=== PATIENT | male | born 1950 | race Caucasian/White ===

== ENCOUNTER 2016-05-21 21:32 | Inpatient (IN) | payer BC, OTHER ==
[~2016-05-21] VITALS: Ht 190.5 cm; Wt 70.0 kg
[~2016-05-21 21:32] MED LIST: ABL10 PO; ARC10 PO; ASPI81TA28 PO; BACL10TA PO; BUSP-8 PO; CHOL100010 PO; DIPH-416 PO; DORZ2SOL20 OPL; FEXO1TAB45 PO; IBUP-1449 PO; IMD/2 PO; MAGN1TAB19 PO; MELA1TAB5 PO; MULT-506 PO; NMN10 PO; QUET1TAB30 PO; SERT-234 PO; TRAV0.00 OPL; [UNRECOGNIZED DRUG - CODE] EXT
[2016-05-21] MEDS ORDERED: SODIUM CHLORIDE 0.9% 250ML 250 ML IV STA (21:46)
[2016-05-21] MEDS ORDERED: SODIUM CHLORIDE 0.9% 1000ML 1,000 ML IV STA (21:46)
[2016-05-21] MEDS ORDERED: ALBUT/IPRATROP 3MG/0.5MG NEB 3 ML VIAL INH STA (21:46)
--- NOTE | 2016-05-21 22:19 | DIAGNOSTIC IMAGING REPORT ---
CHEST ONE VIEW PORTABLE CLINICAL HISTORY: Sepsis SHORTNESS OF BREATH, COUGH. COMPARISON STUDY: 04/13/2016 FINDINGS: The cardiac and mediastinal contours are normal. There is no evidence of focal pulmonary consolidation. There is no evidence of failure. No pleural effusions are visualized.[ There is minor right basilar atelectasis. There is a thoracolumbar scoliosis IMPRESSION: No active disease in the chest. Electronically signed by: Asif Davis M.D. 05/21/2016 10:18 PM Dictated Date/Time: 05/21/2016 10:16 PM
[2016-05-21 22:36] LABS: BASO % 0.3 %; BASO ABS # 0.03 K/uL (0-0.2); COMPLETE YES; EOS % 3.2 %; HEMATOCRIT 36.1 % (42-52); IG% 0.1 %; LYMPH % 7.1 %; LYMPH ABS # 0.65 K/uL (1.2-3.4); MEAN CELL VOLUME 78.5 fL (80-100); MEAN CORPUSCULAR HEMOGLOBIN 28.9 pg (25-34); MEAN CORPUSCULAR HGB CONC 36.8 g/dl (32-36); MEAN PLATELET VOLUME 10.4 fL (7.4-10.4); MONO % 5.4 %; NEUT % 83.9 %; PLATELET COUNT 215 K/uL (130-400); WHITE BLOOD COUNT 9.15 K/uL (4.8-10.8)
[2016-05-21 22:47] LABS: INR 1.4 (0.9-1.1); PARTIAL THROMBOPLASTIN RATIO 1.3; PROTHROMBIN TIME (PATIENT) 15.3 SECONDS (9.0-12.0)
--- NOTE | 2016-05-21 23:05 | DIAGNOSTIC IMAGING REPORT ---
ULTRASOUND BILATERAL LOWER EXTREMITY VENOUS CLINICAL HISTORY: Leg swelling. COMPARISON STUDY: Left lower extremity venous ultrasound dated 03/03/2014. TECHNIQUE: Real-time, grayscale, and color Doppler sonography of the deep veins of the right and left lower extremity was performed from the inguinal crease to the calf. Compression and augmentation were utilized. FINDINGS: There is no sonographic evidence of deep venous thrombosis identified in the right or left lower extremity. The common femoral, superficial femoral, and popliteal veins are patent and normally compressible bilaterally. The greater saphenous vein and the profunda femoris vein at the junction with the common femoral vein are clear in both legs. The visualized calf veins are patent bilaterally. IMPRESSION: There is no sonographic evidence of deep venous thrombosis identified in the right or left lower extremity. Electronically signed by: Pan Steen M.D. 05/21/2016 11:03 PM Dictated Date/Time: 05/21/2016 11:02 PM
[2016-05-21] MEDS ORDERED: BOOST VANILLA PO STA ×2 (23:23)
[2016-05-21 23:57] LABS: URINE APPEARANCE CLOUDY (CLEAR); URINE BILIRUBIN NEG (NEG); URINE COLOR YELLOW; URINE EPITHELIAL CELL AUTO >30 /lpf (0-5); URINE NITRITE NEG (NEG); URINE PH 5.5 (4.5-7.5); URINE SPECIFIC GRAVITY 1.018 (1.000-1.030); UROBILINOGEN NEG (NEG); ZZURINE CULT IF INDIC CATH YES
[2016-05-22 00:01] LABS: MANUAL MICROSCOPIC REQUIRED? NO; REVIEW REQ? YES
[2016-05-22 00:06] LABS: ALB/GLOB RATIO 0.7 (0.9-2); CALCIUM 8.4 mg/dl (8.5-10.1); CKMB/CK RATIO 4.6 (0-3.0); MAGNESIUM 2.6 mg/dl (1.8-2.4); POTASSIUM 3.4 mmol/L (3.5-5.1)
[2016-05-22] MEDS ORDERED: CHOL1000 PO (01:07)
[2016-05-22] MEDS ORDERED: DONE10TA12 PO (01:08)
[2016-05-22] MEDS ORDERED: NMN10 PO (01:13)
[2016-05-22] MEDS ORDERED: TRAV0.00 OPL (01:21)
[2016-05-22 01:50] LABS: INFLUENZA A PCR Neg for Influ A (NEG); INFLUENZA B PCR Neg for Influ B (NEG)
[2016-05-22] MEDS ORDERED: ONDANSETRON INJ 2 MG/ML 2 ML VIAL IV PRN (02:15)
[2016-05-22] MEDS ORDERED: POLYETHYLENE (MIRALAX) 17 GM PACK PO PRN (02:15)
[2016-05-22] MEDS ORDERED: ALUMINUM/MAGNESIUM/SIMETH (MAALOX MAX) 30 ML UDC PO PRN (02:15)
[2016-05-22] MEDS ORDERED: MAGNESIUM HYDROXIDE SUSP 30 ML UDC PO PRN (02:15)
[2016-05-22 03:05] VITALS: BP 143/73; PULSE 63; TEMP 36.6; O2SAT 99; Ht 190.5 cm; Wt 70.0 kg
--- NOTE | 2016-05-22 03:16 | History and Physical ---
History & Physical Date & Time of Service: May 22, 2016 at 02:46 Chief Complaint: Sob, Cough Primary Care Physician: Justice Neil M.D. History of Present Illness Source: patient 66 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 Pt presents from a care facility due to a coughing fit where he was noted to bring up large amounts of phlegm. There were no reported fevers, CP, N/V or dysuria. His fire support specialist states that he has not tolerated sufficient PO intake over the last 4 days. The pt himself could not contribute to the HPI. 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 Initial labs are consistent with severe dehydration and ARF. The pt was admitted for similar complaints 01/15 and developed aspiration pneumonia following admission. 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 (5) Osteoarthritis Status: Chronic Surgical Problems: (1) S/P hip replacement Status: Resolved Family History Heart disease Social History Smoking Status: Former Smoker Drug Use: none Marital Status: single Housing status: lives alone Occupational Status: retired Immunizations History of Influenza Vaccine: Yes Influenza Vaccine Date: Feb 01, 2012 History of Tetanus Vaccine?: Yes Tetanus Immunization Date: Mar 03, 2012 History of Pneumococcal: Yes Pneumococcal Date: Mar 03, 2012 History of Hepatitis B Vaccine: No Multi-Drug Resistant Organisms History of MDRO: No Allergies Coded Allergies: Penicillins (Verified Allergy, Unknown, unknown, Per Erik Chang: pt rec'd ancef in OR w/o rxn, 01/12/16) pt/spouse Home Medications Scheduled Aripiprazole (Abilify), 2.5 TAB PO DAILY Aspirin (Aspirin Ec), 81 MG PO DAILY Baclofen (Lioresal), 10 MG PO HS Buspirone Hcl (Buspirone Hcl), 15 MG PO TID Cholecalciferol (Vitamin D3), 1,000 UNITS PO DAILY Diphenoxylate/Atropine (Lomotil), 1 TAB PO QID Donepezil Hydrochloride (Aricept), 10 MG PO HS Dorzolamide Hcl-Timolol Maleat (Cosopt Oph), 1 DROPS OPL BID Fexofenadine Hcl (Scarlett), 180 MG PO DAILY Loperamide Hcl (Imodium), 2 MG PO QID Magnesium Oxide (Mg Supplement (Magnesium Oxide), 400 MG PO DAILY Melatonin (Kp Melatonin), 2 TAB PO HS Memantine (Namenda), 10 MG PO BID Miconazole Nitrate (Miconazole Nitrate), 1 APPLN EXT DAILY Multivitamin (Multivitamin), 1 TAB PO QAM Quetiapine Fumarate (Seroquel), 25 MG PO HS Sertraline (Zoloft), 300 MG PO HS Travoprost (Travatan Z), 1 DROPS OPL HS Scheduled PRN Ibuprofen Tab (Motrin), 600 MG PO QID PRN for Pain Review of Systems Cannot obtain directly from pt - brought in for above complaints Respiratory: + shortness of breath Abdomen: + problem reported (decreased PO intake) Physical Exam Vital Signs Date Time Temp Pulse Resp B/P Pulse Ox O2 Delivery O2 Flow Rate FiO2 05/22/16 02:17 70 16 144/85 97 Room Air 05/22/16 01:32 72 16 136/84 98 Room Air 05/21/16 23:25 79 16 150/83 97 Room Air 05/21/16 21:57 77 05/21/16 21:39 37.3 70 20 131/108 93 Room Air 05/21/16 21:39 93 Room Air 05/21/16 21:39 93 Room Air General Appearance: + thin, + pertinent finding (Thin, lethargic middle-aged male - cannot verbalize - no distress) Head: normocephalic Eyes: normal inspection ENT: + pertinent finding (Very poor dentition - could not open mouth for exam) Neck: supple, no JVD Respiratory/Chest: chest non-tender, no respiratory distress, + pertinent finding (Exam is compromised by poor resp effort and pt continuous moaning sounds) Cardiovascular: regular rate, rhythm, + pertinent finding (B/L LE edema) Abdomen/GI: normal bowel sounds, non tender, soft Back: normal inspection, no CVA tenderness Extremities/Musculoskelatal: + pedal edema, + pertinent finding (R leg more edematous than L - L shows milf erythema without warmth) Neurologic/Psych: + pertinent finding (Globally weak - mostly averbal - can answer yes/no - minimal extremity movement. ) Skin: normal color, warm/dry, no rash Diagnostics Laboratory Results Results Past 24 Hours Test 1/20/17 22:08 05/21/16 22:15 05/21/16 22:16 05/21/16 23:30 Range/Units White Blood Count 9.15 4.8-10.8 K/uL Red Blood Count 4.60 4.7-6.1 M/uL Hemoglobin 13.3 14.0-18.0 g/dL Hematocrit 36.1 42-52 % Mean Corpuscular Volume 78.5 80-100 fL Mean Corpuscular Hemoglobin 28.9 25-34 pg Mean Corpuscular Hemoglobin Concent 36.8 32-36 g/dl Platelet Count 215 130-400 K/uL Mean Platelet Volume 10.4 7.4-10.4 fL Neutrophils (%) (Auto) 83.9 % Lymphocytes (%) (Auto) 7.1 % Monocytes (%) (Auto) 5.4 % Eosinophils (%) (Auto) 3.2 % Basophils (%) (Auto) 0.3 % Neutrophils # (Auto) 7.68 1.4-6.5 K/uL Lymphocytes # (Auto) 0.65 1.2-3.4 K/uL Monocytes # (Auto) 0.49 0.11-0.59 K/uL Eosinophils # (Auto) 0.29 0-0.5 K/uL Basophils # (Auto) 0.03 0-0.2 K/uL RDW Standard Deviation 37.8 36.4-46.3 fL RDW Coefficient of Variation 13.3 11.5-14.5 % Immature Granulocyte % (Auto) 0.1 % Immature Granulocyte # (Auto) 0.01 0.00-0.02 K/uL Prothrombin Time 15.3 9.0-12.0 SECONDS Prothromb Time International Ratio 1.4 0.9-1.1 Activated Partial Thromboplast Time 34.1 21.0-31.0 SECONDS Partial Thromboplastin Ratio 1.3 Sodium Level 141 136-145 mmol/L Potassium Level 3.4 3.5-5.1 mmol/L Chloride Level 102 98-107 mmol/L Carbon Dioxide Level 18 21-32 mmol/L Anion Gap 21.0 3-11 mmol/L Blood Urea Nitrogen 213 7-18 mg/dl Creatinine 6.00 0.60-1.40 mg/dl Est Creatinine Clear Calc Drug Dose 10.4 ml/min Estimated GFR () 10.5 Estimated GFR (Non- 9.1 BUN/Creatinine Ratio 36.0 10-20 Random Glucose 122 70-99 mg/dl Calcium Level 8.4 8.5-10.1 mg/dl Magnesium Level 2.6 1.8-2.4 mg/dl Total Bilirubin 0.3 0.2-1 mg/dl Aspartate Amino Transf (AST/SGOT) 12 15-37 U/L Alanine Aminotransferase (ALT/SGPT) 13 12-78 U/L Alkaline Phosphatase 102 45-117 U/L Total Creatine Kinase 155 39-308 U/L Creatine Kinase MB 7.1 0.5-3.6 ng/ml Creatine Kinase MB Ratio 4.6 0-3.0 Troponin I 0.015 0-0.045 ng/ml Pro-B-Type Natriuretic Peptide 1698 0-900 pg/ml Total Protein 6.7 6.4-8.2 gm/dl Albumin 2.7 3.4-5.0 gm/dl Globulin 4.0 2.5-4.0 gm/dl Albumin/Globulin Ratio 0.7 0.9-2 Bedside Lactic Acid Venous 0.65 0.90-1.70 mmol/L Influenza Type A (RT-PCR) Neg for Influ A NEG Influenza Type B (RT-PCR) Neg for Influ B NEG Urine Color YELLOW Urine Appearance CLOUDY CLEAR Urine pH 5.5 4.5-7.5 Urine Specific [place] 1.018 1.000-1.030 Urine Protein 4+ NEG Urine Glucose (UA) NEG NEG Urine Ketones NEG NEG Urine Occult Blood 3+ NEG Urine Nitrite NEG NEG Urine Bilirubin NEG NEG Urine Urobilinogen NEG NEG Urine Leukocyte Esterase NEG NEG Urine WBC (Auto) 10-30 0-5 /hpf Urine RBC (Auto) 10-30 0-4 /hpf Urine Hyaline Casts (Auto) 5-10 0-5 /lpf Urine Epithelial Cells (Auto) >30 0-5 /lpf Urine Bacteria (Auto) NEG NEG Urine Renal Epithelial Cells 0-5 /lpf Urine Crystals AMORPHOUS SEDIMENT NONE PRSENT Microbiology Results 05/21/16 Blood Culture, Received Pending 05/21/16 Blood Culture, Received Pending 05/21/16 Urine Culture, Received Pending CXR normal Impression Assessment and Plan 66 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 Pt presents from a care facility due to a coughing fit where he was noted to bring up large amounts of phlegm. There were no reported fevers, CP, N/V or dysuria. His fire support specialist states that he has not tolerated sufficient PO intake over the last 4 days. The pt himself could not contribute to the HPI. 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 Initial labs are consistent with severe dehydration and ARF. The pt was admitted for similar complaints 01/15 and developed aspiration pneumonia following admission. 1) ARF - BUN is spectacularly high and likely exacerbating the pts already severe chronic weakness. Dehydration is the most probable culprit although this may have been present for an extended period considering the degree of impairment. We will obtain urine lytes and aggressively hydrate - BMP will be trended. 2) Coughing/SOB - resolved - likely due to aspiration - would treat for aspiration PNM at first sign of clinical evidence. He is asymptomatic from a respiratory standpoint on admission Pureed diet with thickened liquids ordered per previous recommendations. 3) [place]eshiek's - continue supportive meds 4) LE edema - R > L - has been worsening per fire support specialist - will obtain US to R/O DVT Total time for this admit including review of records, meds, imaging - discussion with pt/fire support specialist/ER attending - 33min Heparin prophylaxis - DNR Level of Care Med/Surg VTE Prophylaxis VTE Risk Assessment Done? Y/N: Yes Risk Level: Moderate Given or contraindicated: Unfractionated heparin SQ
[2016-05-22] MEDS: SODIUM CHLORIDE 0.9% 1000ML 1,000 ML IV SCH ×2 (03:39→11:04)
[2016-05-22 05:07] LABS: CREATININE 5.6 mg/dl (0.60-1.40)
[2016-05-22 05:08] LABS: BUN/CREATININE RATIO 36.6 (10-20); CALCIUM 7.9 mg/dl (8.5-10.1); POTASSIUM 3.4 mmol/L (3.5-5.1)
--- NOTE | 2016-05-22 05:39 | EMERGENCY ROOM VISIT NOTE ---
History First contact with patient: 21:39 Chief Complaint: SHORTNESS OF BREATH Stated Complaint: ARF, ASPIRATION INTO AIRWAY Nursing Triage Summary: Pt here with increasing SOB and productive cough for several days. Pt has white thick sputum and is unable to cough up sputum. Pt has history of [place] and dementia. Pt mumbles and unable to understand. History of Present Illness The patient is a 66 year old male who presents to the Emergency Room with complaints of cough, wheezing and decreased by mouth intake for the past few days. She has Lumpkin's disease. Caregivers were worried that he was not taking his medicines and brought him in for further evaluation and treatment. Patient denies fever, chest pain, abdominal pain, vomiting, diarrhea, headache, body aches and pains. Review of Systems See HPI for pertinent positives & negatives. A total of 10 systems reviewed and were otherwise negative. Past Medical/Surgical History Medical Problems: (1) Anxiety disorder (2) ARF (acute renal failure) (3) Aspiration into airway (4) Depressive disorder (5) Glaucoma (6) Lumpkin's disease (7) Osteoarthritis (8) PNA (pneumonia) Surgical Problems: (1) S/P hip replacement Family History Heart disease Social History Smoking Status: Former Smoker Alcohol Use: none Drug Use: none Marital Status: single Housing Status: lives alone Occupation Status: retired Current/Historical Medications Scheduled Aripiprazole (Abilify), 2.5 TAB PO DAILY Aspirin (Aspirin Ec), 81 MG PO DAILY Baclofen (Lioresal), 10 MG PO HS Buspirone Hcl (Buspirone Hcl), 15 MG PO TID Cholecalciferol (Vitamin D3), 1,000 UNITS PO DAILY Diphenoxylate/Atropine (Lomotil), 1 TAB PO QID Donepezil Hydrochloride (Aricept), 10 MG PO HS Dorzolamide Hcl-Timolol Maleat (Cosopt Oph), 1 DROPS OPL BID Fexofenadine Hcl (Scarlett), 180 MG PO DAILY Loperamide Hcl (Imodium), 2 MG PO QID Magnesium Oxide (Mg Supplement (Magnesium Oxide), 400 MG PO DAILY Melatonin (Kp Melatonin), 2 TAB PO HS Memantine (Namenda), 10 MG PO BID Miconazole Nitrate (Miconazole Nitrate), 1 APPLN EXT DAILY Multivitamin (Multivitamin), 1 TAB PO QAM Quetiapine Fumarate (Seroquel), 25 MG PO HS Sertraline (Zoloft), 300 MG PO HS Travoprost (Travatan Z), 1 DROPS OPL HS Scheduled PRN Ibuprofen Tab (Motrin), 600 MG PO QID PRN for Pain Allergies Coded Allergies: Penicillins (Verified Allergy, Unknown, unknown, Per Erik Chang: pt rec'd ancef in OR w/o rxn, 01/12/16) pt/spouse Physical Exam Vital Signs Date Time Temp Pulse Resp B/P Pulse Ox O2 Delivery O2 Flow Rate FiO2 05/22/16 02:17 70 16 144/85 97 Room Air 05/22/16 01:32 72 16 136/84 98 Room Air 05/21/16 23:25 79 16 150/83 97 Room Air 05/21/16 21:57 77 05/21/16 21:39 37.3 70 20 131/108 93 Room Air 05/21/16 21:39 93 Room Air 05/21/16 21:39 93 Room Air Pain Rating (0-10): 0 Physical Exam VITALS: Vitals are noted on the nurse's note and reviewed by myself. Vital signs stable. GENERAL: Pleasant male, in no acute distress, nondiaphoretic, well-developed well-nourished. SKIN: The skin was without rashes, erythema, edema, or bruising. There is no tenting of the skin. Capillary reflex less than 2 seconds. HEAD: Normocephalic atraumatic. EARS: External auditory canals clear, tympanic membranes pearly winters without erythema or effusion bilaterally. EYES: Pupils equal round and reactive to light and accommodation. Conjunctivae without injection, sclerae without icterus. Extraocular movements intact. NOSE: Patent, turbinates without inflammation or discharge. No sinus tenderness. MOUTH: Mucous membranes dry. Pharynx without erythema or exudate. Uvula midline. Airway patent. Tongue does not deviate. NECK: Supple without nuchal rigidity. No lymphadenopathy. No thyromegaly. Cervical spine is nontender. No JVD. HEART: Regular rate and rhythm LUNGS: Mild diffuse end expiratory wheezes, without rales or rhonchi. No dullness to percussion. No retractions or accessory muscle use. ABDOMEN: Positive bowel sounds x 4. Normal tympanic percussion. Soft, nontender, without masses or organomegaly. Nicole sign negative. No guarding or rebound tenderness. MUSCULOSKELETAL: No muscle atrophy, erythema, noted. + 1 Pitting edema up to the mid tib-fib bilaterally NEURO: Patient was alert and oriented to person place and time. Medical Decision & Procedures Laboratory Results 05/21/16 22:08 Red Blood Count 4.60, Mean Corpuscular Volume 78.5, Mean Corpuscular Hemoglobin 28.9, Mean Corpuscular Hemoglobin Concent 36.8, Mean Platelet Volume 10.4, Neutrophils (%) (Auto) 83.9, Lymphocytes (%) (Auto) 7.1, Monocytes (%) (Auto) 5.4, Eosinophils (%) (Auto) 3.2, Basophils (%) (Auto) 0.3, Neutrophils # (Auto) 7.68, Lymphocytes # (Auto) 0.65, Monocytes # (Auto) 0.49, Eosinophils # (Auto) 0.29, Basophils # (Auto) 0.03 Test 05/21/16 22:08 05/21/16 22:15 05/21/16 22:16 05/21/16 23:30 White Blood Count 9.15 K/uL (4.8-10.8) Red Blood Count 4.60 M/uL (4.7-6.1) Hemoglobin 13.3 g/dL (14.0-18.0) Hematocrit 36.1 % (42-52) Mean Corpuscular Volume 78.5 fL (80-100) Mean Corpuscular Hemoglobin 28.9 pg (25-34) Mean Corpuscular Hemoglobin Concent 36.8 g/dl (32-36) Platelet Count 215 K/uL (130-400) Mean Platelet Volume 10.4 fL (7.4-10.4) Neutrophils (%) (Auto) 83.9 % Lymphocytes (%) (Auto) 7.1 % Monocytes (%) (Auto) 5.4 % Eosinophils (%) (Auto) 3.2 % Basophils (%) (Auto) 0.3 % Neutrophils # (Auto) 7.68 K/uL (1.4-6.5) Lymphocytes # (Auto) 0.65 K/uL (1.2-3.4) Monocytes # (Auto) 0.49 K/uL (0.11-0.59) Eosinophils # (Auto) 0.29 K/uL (0-0.5) Basophils # (Auto) 0.03 K/uL (0-0.2) RDW Standard Deviation 37.8 fL (36.4-46.3) RDW Coefficient of Variation 13.3 % (11.5-14.5) Immature Granulocyte % (Auto) 0.1 % Immature Granulocyte # (Auto) 0.01 K/uL (0.00-0.02) Prothrombin Time 15.3 SECONDS (9.0-12.0) Prothromb Time International Ratio 1.4 (0.9-1.1) Activated Partial Thromboplast Time 34.1 SECONDS (21.0-31.0) Partial Thromboplastin Ratio 1.3 Magnesium Level 2.6 mg/dl (1.8-2.4) Total Bilirubin 0.3 mg/dl (0.2-1) Aspartate Amino Transf (AST/SGOT) 12 U/L (15-37) Alanine Aminotransferase (ALT/SGPT) 13 U/L (12-78) Alkaline Phosphatase 102 U/L (45-117) Total Creatine Kinase 155 U/L (39-308) Creatine Kinase MB 7.1 ng/ml (0.5-3.6) Creatine Kinase MB Ratio 4.6 (0-3.0) Troponin I 0.015 ng/ml (0-0.045) Pro-B-Type Natriuretic Peptide 1698 pg/ml (0-900) Total Protein 6.7 gm/dl (6.4-8.2) Albumin 2.7 gm/dl (3.4-5.0) Globulin 4.0 gm/dl (2.5-4.0) Albumin/Globulin Ratio 0.7 (0.9-2) Bedside Lactic Acid Venous 0.65 mmol/L (0.90-1.70) Influenza Type A (RT-PCR) Neg for Influ A (NEG) Influenza Type B (RT-PCR) Neg for Influ B (NEG) Urine Color YELLOW Urine Appearance CLOUDY (CLEAR) Urine pH 5.5 (4.5-7.5) Urine Specific [place] 1.018 (1.000-1.030) Urine Protein 4+ (NEG) Urine Glucose (UA) NEG (NEG) Urine Ketones NEG (NEG) Urine Occult Blood 3+ (NEG) Urine Nitrite NEG (NEG) Urine Bilirubin NEG (NEG) Urine Urobilinogen NEG (NEG) Urine Leukocyte Esterase NEG (NEG) Urine WBC (Auto) 10-30 /hpf (0-5) Urine RBC (Auto) 10-30 /hpf (0-4) Urine Hyaline Casts (Auto) 5-10 /lpf (0-5) Urine Epithelial Cells (Auto) >30 /lpf (0-5) Urine Bacteria (Auto) NEG (NEG) Urine Renal Epithelial Cells /lpf (0-5) Urine Crystals AMORPHOUS SEDIMENT (NONE Medications Administered Medications (Trade) Dose Ordered Sig/Rachel Route Start Time Stop Time Status Last Admin Dose Admin Albuterol/ Ipratropium 3 ml 3 ml NOW STAT INH 05/21/16 21:46 05/21/16 21:48 DC 05/21/16 22:13 3 ML Sodium Chloride 250 ml @ 999 mls/hr Q16M STAT IV 05/21/16 21:46 05/21/16 22:01 DC 05/21/16 22:13 999 MLS/HR Sodium Chloride (Nss 1000ml) 1,000 ml @ 125 mls/hr Q8H STAT IV 05/21/16 21:46 05/22/16 03:30 DC 05/21/16 22:13 125 MLS/HR Enteral Nutritional Formula (Boost) 1 can NOW STAT PO 05/21/16 23:23 05/21/16 23:24 DC 05/22/16 00:15 1 CAN ED Course Prior records/ancillary studies reviewed. Triage Nursing notes reviewed. Additional history obtained from the care givers. The patient's history was concerning for respiratory difficulties. Differential diagnosis: Etiologies such as infections, reactive airway disease, pneumonia, pneumothorax , COPD, CHF, cardiac ischemia, pulmonary embolism, musculoskeletal, gastrointestinal, as well as others were entertained. Physical examination: As above. ER treatment provided: Nebulizer, IV fluids On reassessment the patient felt better. Diagnostic interpretation by me: The electrocardiogram was negative for acute ischemic or pathologic change. Normal sinus, normal intervals, no acute ST-T wave changes. Impression normal sinus rhythm interpreted by myself The labs revealed a creatinine which is new. Negative troponin Imaging studies: Chest x-ray as above. CLINICAL HISTORY: Sepsis SHORTNESS OF BREATH, COUGH. COMPARISON STUDY: 04/13/2016 FINDINGS: The cardiac and mediastinal contours are normal. There is no evidence of focal pulmonary consolidation. There is no evidence of failure. No pleural effusions are visualized.[ There is minor right basilar atelectasis. There is a thoracolumbar scoliosis IMPRESSION: No active disease in the chest. Electronically signed by: Asif Davis M.D. 05/21/2016 10:18 PM Ultrasound was negative for DVT per stat radiology Consultation: A consultation was placed with Dr Collier, hospitalist. The case was discussed and diagnostics were reviewed. The patient was evaluated in the ER for further treatment. This appears to be consistent with acute renal diet. Patient will be evaluated by medicine for further evaluation and workup. He was hydrated as above. No DVT on ultrasound. By the evaluation outlined above emergent etiologies such as CHF, cardiac ischemia, pulmonary embolism, reactive airway disease, pneumonia, pneumothorax, musculoskeletal, serious bacterial infections, as well as others were deemed relatively unlikely. The pt informed about the findings as listed above. All questions were answered and pleased with the treatment. Case reviewed by attending Medical Decision As above Impression Primary Impression: ARF (acute renal failure) Departure Information Dispostion Admitted as an inpatient Condition FAIR Referrals Justice Neil M.D. (PCP) Forms HOME CARE DOCUMENTATION FORM, IMPORTANT VISIT INFORMATION Patient Instructions [facility] Problem Qualifiers Primary Impression: ARF (acute renal failure) Acute renal failure type: unspecified Qualified Codes: N17.9 - Acute kidney failure, unspecified
[2016-05-22] MEDS ORDERED: HEPARIN SOD 5000 UNIT/0.5 ML CARP SQ SCH (06:00)
[2016-05-22 07:41] VITALS: BP 141/67; PULSE 65; TEMP 36.5; O2SAT 99
--- NOTE | 2016-05-22 07:46 | DIAGNOSTIC IMAGING REPORT ---
CT SCAN OF THE ABDOMEN AND PELVIS WITHOUT IV CONTRAST CLINICAL HISTORY: Acute renal insufficiency. COMPARISON STUDY: Abdominal CT dated 04/02/2012. TECHNIQUE: CT scan of the abdomen and pelvis is performed from the lung bases to the proximal femora. Images are reviewed in the axial, sagittal, and coronal planes. IV contrast was not administered for this examination. Automated dose control exposure was utilized. The examination is suboptimal without oral and IV contrast. The examination is degraded by streak artifact and the patient's arms which could not be elevated above the abdomen. The examination is also degraded by motion artifact. CT DOSE: 477.21 mGy.cm FINDINGS: Lung bases: The heart is normal in size and without pericardial effusion. There are trace pleural effusions and dependent atelectasis. Patchy airspace consolidation is seen in the right middle and lower lobes. Liver: The unenhanced liver is normal in size, contour, and attenuation. There is no intrahepatic biliary ductal dilatation. Gallbladder: Unremarkable. Spleen: Normal in size and attenuation. Pancreas: The unenhanced pancreas is grossly unremarkable but not well visualized. Adrenal glands: Unremarkable. Kidneys: The unenhanced kidneys demonstrate mild cortical atrophy and are without hydronephrosis. There are no renal calculi identified. There is no evidence of contour deforming renal mass lesion. Abdominal vasculature: The abdominal aorta is normal in course and caliber noting moderate atherosclerotic calcification. Bowel: The small bowel and colon are normal in course and caliber. There is mild sigmoid diverticulosis without CT evidence of acute diverticulitis. The partially imaged appendix is grossly unremarkable. Peritoneum: There is free fluid in the pelvis as well as mesenteric edema. No intraperitoneal free air is seen. Lymphadenopathy: None. Pelvic viscera: Streak artifact from a left hip arthroplasty degrades assessment of the pelvis. The prostate gland appears mildly enlarged. Of the decompressed, the bladder wall appears thickened and pericystic infiltration is suspected. There is a small fat-containing left inguinal hernia. There is likely fluid and bowel within a small right inguinal hernia. Skeletal structures: The skeletal structures are osteopenic. Degenerative change and scoliosis are noted in the lumbosacral spine. No lytic or blastic lesions are seen. A left hip arthroplasty is in place. Soft tissues: There is body wall edema. IMPRESSION: 1. Suboptimal examination without oral and IV contrast. The examination is also significantly degraded by motion and streak artifact. 2. Although decompressed, the bladder wall appears thickened and there is likely mild pericystic infiltration. Early clinically and with urinalysis for evidence of cystitis. 3. Patchy airspace consolidation is seen in the right middle lobe and the right lower lobe. Correlated clinically for evidence of an infectious or inflammatory pneumonitis. 4. There are trace pleural effusions. 5. There is body wall edema as well as mesenteric edema. 6. There are small inguinal hernias. The right internal hernia contains a small segment of bowel and trace fluid. 7. A small volume of free fluid is seen in the pelvis. 8. Additional changes as above. Electronically signed by: Pan Steen M.D. 05/22/2016 7:44 AM Dictated Date/Time: 05/22/2016 7:36 AM
[2016-05-22] MEDS: MICONAZOLE NITRATE 2% CR 30 GM TUBE EXT SCH (07:47)
[2016-05-22] MEDS: DORZOLAMIDE/TIMOLOL 22.3/6.8MG/ML 10 ML BTL OPL SCH ×2 (07:47→20:36)
[2016-05-22] MEDS: ARIPIprazole TAB 10 MG TAB PO SCH (07:47)
[2016-05-22] MEDS: LOPERAMIDE HCL 2 MG CAP PO SCH ×4 (07:48→20:38)
[2016-05-22] MEDS: DIPHENOXYLATE/ATROPINE 2.5/0.025MG TAB PO SCH ×4 (07:48→20:38)
[2016-05-22] MEDS: BusPIRone 15 MG TAB PO SCH ×3 (07:48→20:37)
[2016-05-22] MEDS: ASPIRIN 81 MG ECTAB PO SCH (07:48)
[2016-05-22] MEDS: FEXOFENADINE HCL 180 MG TAB PO SCH (07:48)
[2016-05-22] MEDS: MEMANTINE 10 MG TAB PO SCH ×2 (07:48→20:39)
[2016-05-22] MEDS: CHOLECALCIFEROL 1000 INTER.UNIT TAB PO SCH (07:48)
[2016-05-22] MEDS: MAGNESIUM OXIDE 400 MG TAB PO SCH (07:48)
[2016-05-22] MEDS: CEFTRIAXONE SOD INJ 1 GM in DEXTROSE 5% ADD-VANTAGE 50ML 50 ML IV SCH (09:38)
[2016-05-22] MEDS: BOOST VANILLA PO SCH ×4 (09:38→13:28)
[2016-05-22 10:57] LABS: BUN/CREATININE RATIO 38.2 (10-20); CALCIUM 7.6 mg/dl (8.5-10.1); CREATININE 5.3 mg/dl (0.60-1.40); POTASSIUM 3.4 mmol/L (3.5-5.1)
[2016-05-22] MEDS: METRONIDAZOLE / NSS 500 MG in PREMIXED NSS 100 ML IV SCH ×2 (13:18→20:29)
[2016-05-22 15:54] VITALS: BP 162/87; PULSE 64; TEMP 36.2; O2SAT 96
[2016-05-22 16:15] VITALS: O2SAT 96
[2016-05-22] MEDS: ACETAMINOPHEN 325 MG TAB PO PRN (16:37)
[2016-05-22] MEDS: HEPARIN SOD 5000 UNIT/0.5 ML CARP SQ SCH (18:05)
[2016-05-22] MEDS: BOOST PLUS VANILLA PO SCH ×2 (18:06)
[2016-05-22 18:19] LABS: BUN/CREATININE RATIO 38.5 (10-20); CALCIUM 7.7 mg/dl (8.5-10.1); CREATININE 4.8 mg/dl (0.60-1.40); POTASSIUM 3.8 mmol/L (3.5-5.1)
[2016-05-22] MEDS ORDERED: SODIUM CHLORIDE 0.9% 1000ML 1,000 ML IV SCH (18:30)
[2016-05-22] MEDS ORDERED: NURSING VERBAL MED ORDER ONE ×3 (18:30→22:45)
[2016-05-22] MEDS: MoRPHine SULFATE 2 MG/ML CARP IV PRN (19:39)
[2016-05-22] MEDS: SODIUM BICARBONATE 8.4% INJ 150 MEQ in DEXTROSE 5% 1000ML 1,000 ML IV SCH (19:48)
[2016-05-22] MEDS: TRAVOPROST Z 0.004% OPH SOLN 2.5 ML BTL OPL SCH (20:37)
[2016-05-22] MEDS: BACLOFEN 10 MG TAB PO SCH (20:40)
[2016-05-22] MEDS: DONEPEZIL HCL 10 MG TAB PO SCH (20:40)
[2016-05-22] MEDS: QUETIAPINE FUMARATE 25 MG TAB PO SCH (20:41)
[2016-05-22] MEDS: SERTRALINE HCL 100 MG TAB PO SCH (20:41)
[2016-05-22] MEDS ORDERED: MELATONIN PO SCH (21:00)
--- NOTE | 2016-05-22 21:25 | Progress Note ---
Progress Note Hospitalist Note: 05/22/162114 During my visit today the patient was awake but could minimally follow commands and could not really speak. A caregiver from his home was at bedside. She reports that at baseline he does not know the year, current events, etc She states his speech is often difficult to understand. He coughs with eating and drinking despite modification of his diet. VSS, afebrile gen - thin/malnourished mouth - MM dry heart - RRR, s1, s2 lungs - CTA b/l, decreased BS right base abd - soft, NT, BS+ ext - no edema labs - 05/21/16 22:08 Red Blood Count 4.60, Mean Corpuscular Volume 78.5, Mean Corpuscular Hemoglobin 28.9, Mean Corpuscular Hemoglobin Concent 36.8, Mean Platelet Volume 10.4, Neutrophils (%) (Auto) 83.9, Lymphocytes (%) (Auto) 7.1, Monocytes (%) (Auto) 5.4, Eosinophils (%) (Auto) 3.2, Basophils (%) (Auto) 0.3, Neutrophils # (Auto) 7.68, Lymphocytes # (Auto) 0.65, Monocytes # (Auto) 0.49, Eosinophils # (Auto) 0.29, Basophils # (Auto) 0.03 05/22/16 17:36 Test 05/21/16 22:08 05/21/16 22:15 05/21/16 22:16 05/21/16 23:30 White Blood Count 9.15 K/uL (4.8-10.8) Red Blood Count 4.60 M/uL (4.7-6.1) Hemoglobin 13.3 g/dL (14.0-18.0) Hematocrit 36.1 % (42-52) Mean Corpuscular Volume 78.5 fL (80-100) Mean Corpuscular Hemoglobin 28.9 pg (25-34) Mean Corpuscular Hemoglobin Concent 36.8 g/dl (32-36) Platelet Count 215 K/uL (130-400) Mean Platelet Volume 10.4 fL (7.4-10.4) Neutrophils (%) (Auto) 83.9 % Lymphocytes (%) (Auto) 7.1 % Monocytes (%) (Auto) 5.4 % Eosinophils (%) (Auto) 3.2 % Basophils (%) (Auto) 0.3 % Neutrophils # (Auto) 7.68 K/uL (1.4-6.5) Lymphocytes # (Auto) 0.65 K/uL (1.2-3.4) Monocytes # (Auto) 0.49 K/uL (0.11-0.59) Eosinophils # (Auto) 0.29 K/uL (0-0.5) Basophils # (Auto) 0.03 K/uL (0-0.2) RDW Standard Deviation 37.8 fL (36.4-46.3) RDW Coefficient of Variation 13.3 % (11.5-14.5) Immature Granulocyte % (Auto) 0.1 % Immature Granulocyte # (Auto) 0.01 K/uL (0.00-0.02) Prothrombin Time 15.3 SECONDS (9.0-12.0) Prothromb Time International Ratio 1.4 (0.9-1.1) Activated Partial Thromboplast Time 34.1 SECONDS (21.0-31.0) Partial Thromboplastin Ratio 1.3 Magnesium Level 2.6 mg/dl (1.8-2.4) Total Bilirubin 0.3 mg/dl (0.2-1) Aspartate Amino Transf (AST/SGOT) 12 U/L (15-37) Alanine Aminotransferase (ALT/SGPT) 13 U/L (12-78) Alkaline Phosphatase 102 U/L (45-117) Total Creatine Kinase 155 U/L (39-308) Creatine Kinase MB 7.1 ng/ml (0.5-3.6) Creatine Kinase MB Ratio 4.6 (0-3.0) Troponin I 0.015 ng/ml (0-0.045) Pro-B-Type Natriuretic Peptide 1698 pg/ml (0-900) Total Protein 6.7 gm/dl (6.4-8.2) Albumin 2.7 gm/dl (3.4-5.0) Globulin 4.0 gm/dl (2.5-4.0) Albumin/Globulin Ratio 0.7 (0.9-2) Bedside Lactic Acid Venous 0.65 mmol/L (0.90-1.70) Influenza Type A (RT-PCR) Neg for Influ A (NEG) Influenza Type B (RT-PCR) Neg for Influ B (NEG) Urine Color YELLOW Urine Appearance CLOUDY (CLEAR) Urine pH 5.5 (4.5-7.5) Urine Specific [place] 1.018 (1.000-1.030) Urine Protein 4+ (NEG) Urine Glucose (UA) NEG (NEG) Urine Ketones NEG (NEG) Urine Occult Blood 3+ (NEG) Urine Nitrite NEG (NEG) Urine Bilirubin NEG (NEG) Urine Urobilinogen NEG (NEG) Urine Leukocyte Esterase NEG (NEG) Urine WBC (Auto) 10-30 /hpf (0-5) Urine RBC (Auto) 10-30 /hpf (0-4) Urine Hyaline Casts (Auto) 5-10 /lpf (0-5) Urine Epithelial Cells (Auto) >30 /lpf (0-5) Urine Bacteria (Auto) NEG (NEG) Urine Renal Epithelial Cells /lpf (0-5) Urine Crystals AMORPHOUS SEDIMENT (NONE Test 05/22/16 17:36 05/22/16 19:30 Anion Gap 18.0 mmol/L (3-11) Est Creatinine Clear Calc Drug Dose 13.0 ml/min Estimated GFR () 13.8 Estimated GFR (Non- 11.9 BUN/Creatinine Ratio 38.5 (10-20) Calcium Level 7.7 mg/dl (8.5-10.1) Urine Random Creatinine 98.0 mg/dl Urine Random Sodium 16 mEq/L A/P: 1. acute renal failure; FeNa 0.5. He appears massively dehydrated (neonatal intensive care nurse report little intake x 2 weeks). 2. evidence of uremia (worsening mental status, appears uncomfortable, etc). 3. acidosis 2nd to above. 4. RML/RLL pneumonia 2nd to aspiration 5. ?UTI 6. [place]'s chorea with advanced dementia change IVF to D5-Bicarb and run at 100cc/hr serial BMPs rocephin/flagyl for probable aspiration pneumonia speech therapy to check swallow; in meantime pureed with nectar thick fluids DNR Tracy SHERMAN MD
[2016-05-22 23:58] VITALS: BP 174/94; PULSE 85; TEMP 36.9; O2SAT 90
[2016-05-23] MEDS: METRONIDAZOLE / NSS 500 MG in PREMIXED NSS 100 ML IV SCH ×3 (04:08→20:41)
[2016-05-23] MEDS: HEPARIN SOD 5000 UNIT/0.5 ML CARP SQ SCH ×2 (05:42→20:44)
[2016-05-23 06:08] LABS: HEMATOCRIT 29.4 % (42-52); MEAN CELL VOLUME 78.4 fL (80-100); MEAN CORPUSCULAR HEMOGLOBIN 28.5 pg (25-34); MEAN CORPUSCULAR HGB CONC 36.4 g/dl (32-36); MEAN PLATELET VOLUME 10.5 fL (7.4-10.4); PLATELET COUNT 168 K/uL (130-400); RED BLOOD COUNT 3.75 M/uL (4.7-6.1)
[2016-05-23 06:43] LABS: BUN/CREATININE RATIO 40.4 (10-20); CALCIUM 7.6 mg/dl (8.5-10.1); CREATININE 4.4 mg/dl (0.60-1.40); POTASSIUM 3.4 mmol/L (3.5-5.1)
[2016-05-23] MEDS: SODIUM BICARBONATE 8.4% INJ 150 MEQ in DEXTROSE 5% 1000ML 1,000 ML IV SCH (06:44)
[2016-05-23 07:12] VITALS: BP 170/85; PULSE 59; TEMP 36.6; O2SAT 97
[2016-05-23 08:00] VITALS: O2SAT 97
[2016-05-23] MEDS: BOOST PLUS VANILLA PO SCH ×6 (08:00→17:00)
[2016-05-23] MEDS: ASPIRIN 81 MG ECTAB PO SCH (08:01)
[2016-05-23] MEDS: LOPERAMIDE HCL 2 MG CAP PO SCH ×4 (08:01→20:00)
[2016-05-23] MEDS: BusPIRone 15 MG TAB PO SCH ×3 (08:01→20:00)
[2016-05-23] MEDS: CHOLECALCIFEROL 1000 INTER.UNIT TAB PO SCH (08:01)
[2016-05-23] MEDS: MEMANTINE 10 MG TAB PO SCH ×2 (08:01→20:00)
[2016-05-23] MEDS: MAGNESIUM OXIDE 400 MG TAB PO SCH (08:01)
[2016-05-23] MEDS: FEXOFENADINE HCL 180 MG TAB PO SCH (08:01)
[2016-05-23] MEDS: ARIPIprazole TAB 10 MG TAB PO SCH (08:02)
[2016-05-23] MEDS: DORZOLAMIDE/TIMOLOL 22.3/6.8MG/ML 10 ML BTL OPL SCH ×2 (08:02→20:34)
[2016-05-23] MEDS: DIPHENOXYLATE/ATROPINE 2.5/0.025MG TAB PO SCH ×4 (08:02→20:00)
[2016-05-23] MEDS: MICONAZOLE NITRATE 2% CR 30 GM TUBE EXT SCH (08:03)
[2016-05-23] MEDS: HydrALAZINE 10 MG TAB PO SCH ×3 (10:00→20:00)
[2016-05-23] MEDS ORDERED: POTASSIUM CHLORIDE 20 MEQ/15 ML UDC PO SCH (10:00)
[2016-05-23] MEDS: CEFTRIAXONE SOD INJ 1 GM in DEXTROSE 5% ADD-VANTAGE 50ML 50 ML IV SCH (10:41)
[2016-05-23] MEDS: MoRPHine SULFATE 2 MG/ML CARP IV PRN ×3 (10:42→22:01)
[2016-05-23] MEDS: POTASSIUM CHLR 10 MEQ / WTR 10 MEQ in PREMIXED WATER 100 ML IV SCH ×3 (12:54→14:45)
[2016-05-23 14:51] LABS: BUN/CREATININE RATIO 39.3 (10-20); CALCIUM 7.7 mg/dl (8.5-10.1); CREATININE 4.3 mg/dl (0.60-1.40); POTASSIUM 3.3 mmol/L (3.5-5.1)
[2016-05-23 15:10] LABS: FERRITIN 472.9 ng/ml (8.0-388.0)
[2016-05-23 15:35] VITALS: BP 152/78; PULSE 51; TEMP 36.1; O2SAT 95
[2016-05-23] MEDS: D5W AND 1/2NSS + 20MEQ KCL 1,000 ML IV SCH (16:55)
--- NOTE | 2016-05-23 18:01 | DIAGNOSTIC IMAGING REPORT ---
CT HEAD WITHOUT CONTRAST (CT) CLINICAL HISTORY: Head pain. History of trauma. Evaluate for subdural or subarachnoid hemorrhage. HISTORY OF CORTICAL CONTUSION AND SUBARACHNOID HEMORRHAGE. COMPARISON STUDY: 04/13/2016 TECHNIQUE: Axial CT of the brain is performed from the vertex to the skull base. IV contrast was not administered for this examination. CT DOSE: 687.98 mGy.cm FINDINGS: No intra or extra-axial mass lesions are visualized. There is no CT evidence of acute cortical infarction. There is no evidence of midline shift. There is no acute hemorrhage. No calvarial fractures are visualized. The previously identified right temporoparietal hemorrhage is no longer visualized. There are mild white matter hypodensities likely on a small vessel basis. There are atrophic changes. There is no evidence of pathologic ventricular dilatation. There is no evidence of acute sinusitis. There is mild inflammatory changes maxillary and ethmoid sinuses. IMPRESSION: No acute intracranial findings Electronically signed by: Asif Davis M.D. 05/23/2016 5:59 PM Dictated Date/Time: 05/23/2016 5:56 PM
[2016-05-23] MEDS: DONEPEZIL HCL 10 MG TAB PO SCH (20:14)
[2016-05-23] MEDS: QUETIAPINE FUMARATE 25 MG TAB PO SCH (20:15)
[2016-05-23] MEDS: BACLOFEN 10 MG TAB PO SCH (20:15)
[2016-05-23] MEDS: SERTRALINE HCL 100 MG TAB PO SCH (20:15)
[2016-05-23] MEDS: TRAVOPROST Z 0.004% OPH SOLN 2.5 ML BTL OPL SCH (20:34)
--- NOTE | 2016-05-23 20:45 | Progress Note ---
Subjective Date of Service: May 23, 2016. Subjective Pt evaluation today including: conversation w/ patient (attempts at such), conversation w/ family (brother, by phone), physical exam, chart review, lab review, review of studies (CT head), conversation w/ marketing sales consultant (speech therapy) Pain: apparently had pain last night, none today PO Intake: npo Voiding: incontinence No events overnight. 2 full-time caregivers were at bedside during my visit. One of the caregivers reports he was hospitalized at [facility] last month "for a brain bleed" and he had additional falls with possible head trauma over the last few weeks. Both caregivers confirm very poor appetite/ability to drink over the last 2-3 weeks but even prior was NOT drinking well. What he would drink would cause obvious aspiration. At baseline he has difficult to discern speech but, according to his brother, "the caregivers and myself can understand him." Brother confirmed by phone he is a partial code (DNI but otherwise full code). Brother also stated that just a few weeks ago the patient told him he was having good quality of life. Problem List Medical Problems: (1) Bilateral pneumonia Status: Acute (2) Bradycardia Status: Acute (3) Cerebral contusion Status: Acute Review of Systems unable to obtain 2nd to aphasia Objective Vital Signs Date Time Temp Pulse Resp B/P Pulse Ox O2 Delivery O2 Flow Rate FiO2 05/23/16 16:23 Room Air 05/23/16 15:35 36.1 51 18 152/78 95 Room Air 05/23/16 08:00 97 Room Air 05/23/16 07:12 36.6 59 18 170/85 97 Room Air 05/23/16 00:00 Room Air 05/22/16 23:58 36.9 85 20 174/94 90 Room Air Physical Exam General Appearance: no apparent distress, + cachetic, + thin ENT: + pertinent finding (MM very dry , ? mild thrush, poor dentition ) Neck: no JVD Respiratory/Chest: no respiratory distress, no accessory muscle use, + decreased breath sounds (right base only) Cardiovascular: regular rate, rhythm, no gallop, no murmur Abdomen: normal bowel sounds, non tender, soft, no organomegaly, + hernia ( inguinal, reducible, on left ) Extremities: + pedal edema (trace b/l ) Neurologic/Psychiatric: alert, + pertinent finding (cannot determine his orientation due to significant expressive aphasia) Skin: + pertinent finding (stasis changes b/l legs ) Laboratory Results Last 24 Hours Test 05/23/16 05:14 05/23/16 05:19 05/23/16 14:24 Sodium Level 147 mmol/L 148 mmol/L Potassium Level 3.4 mmol/L 3.3 mmol/L Chloride Level 111 mmol/L 109 mmol/L Carbon Dioxide Level 22 mmol/L 25 mmol/L Anion Gap 14.0 mmol/L 14.0 mmol/L Blood Urea Nitrogen 178 mg/dl 169 mg/dl Creatinine 4.40 mg/dl 4.30 mg/dl Est Creatinine Clear Calc Drug Dose 14.2 ml/min 14.5 ml/min Estimated GFR () 15.3 15.7 Estimated GFR (Non- 13.2 13.6 BUN/Creatinine Ratio 40.4 39.3 Random Glucose 115 mg/dl 121 mg/dl Calcium Level 7.6 mg/dl 7.7 mg/dl White Blood Count 9.80 K/uL Red Blood Count 3.75 M/uL Hemoglobin 10.7 g/dL Hematocrit 29.4 % Mean Corpuscular Volume 78.4 fL Mean Corpuscular Hemoglobin 28.5 pg Mean Corpuscular Hemoglobin Concent 36.4 g/dl RDW Standard Deviation 37.8 fL RDW Coefficient of Variation 13.3 % Platelet Count 168 K/uL Mean Platelet Volume 10.5 fL Iron Level 55 mcg/dl Total Iron Binding Capacity 112 mcg/dl Transferrin 91 mg/dl Transferrin % Saturation 43 % Ferritin 472.9 ng/ml Assessment and Plan 66yo male with: 1. profound acute renal failure / significant uremia - FeNa 0.5. Etiology - next to NO oral intake over a 2-week time period prior to this hospitalization. Likely ATN. CT abd/pelvis w/o hydronephrosis or evidence of obstruction. Slowly improving with IVF. Repeat BMP this afternoon, then again in AM. Will also repeat the u/a as he had significant blood/protein but he had no RBC casts to suggest GN. Changing fluids due to Na and HCO3 levels. 2. recent SAH 2nd to trauma [place] [facility] [place] repeat head CT today negative for ICH. Resume heparin for DVT proph. 3. severe dysphagia with known recurrent aspiration - appreciate speech therapy eval. He was aspirating at home even on thickened liquids and modified solids. I don't suspect this issue will improve even when his mentation is better. Discussed this issue HEAVILY with his brother by phone today. His advanced directive states NO PEG TUBE. Defer on NG tube feedings at this time. 4. right-sided pneumonia, most likely aspiration - rocephin/flagyl, day #2. Plan 10 day course. 5. metabolic acidosis 2nd to uremia - improved. Stop bicarb infusion for now. Change fluids to D5 1/2NS. 6. [place]'s chorea with dementia - known issue. fairly advanced, with aphasia. I have not been able to communicate with Mr. Garrett although caregivers state they can understand him. I am unclear how much of his mental status is due to uremia and how much is due to his baseline [place]'s. 7. elevated BP w/o dx of HTN - may be due in part to #1 above. If BP control is needed will add hydralazine IV. 8. FEN - strict NPO for now; defer on NG feedings today. BMP about q12h for now. 9. microcytic anemia - check iron studies. 10. DVT proph - heparin BID. 11. glaucoma - continue outpatient drops. 12. dementia with psychosis? is on multiple meds including antipsychotics. check EKG to ensure QTc is ok. resume these meds in future when able to take PO. if he develops agitation, etc could use IM haldol or risperdal ODT. defer on any meds for now. 13. hypernatremia - change fluids to hypotonic. BMP am. 14. hypokalemia - add KCL to fluids; BMP in am. 15. mild-moderate protein calorie malnutrition - chronic, due to dementia, difficulty eating, etc. Complex issue w/o a good answer/solution. 16. elevated INR - repeat in am. If still high suspect vitamin K deficiency. Very lengthy discussion (30 minutes) held with patient's brother, Dr. Pan Garrett - who is a certified physician assistant. [phone]. Discussed current problems (uremia/ARF, severe dysphagia, aspiration pneumonia, dementia, etc) and care plan. I reviewed the patient's advanced directive with Dr. Garrett - he confirms Clark's wishes as listed in the directive. Specifically, chest compressions/cardioversion are desired but NOT intubation, mech ventilation, dialysis, or PEG tube. He reports that Clark has told him and the caregivers that he has good quality of life; Clark apparently voiced this as recently as 2-3 weeks ago. He asked about a temporary NG tube but I advised, at least for now, against such. I don't think he would tolerate it very well, and it is likely against his wishes as listed in the advance directives. Explained that the largest issue other than the ARF is that of the severe dysphagia and that it likely will not improve. Multiple discussions will likely be needed later this week regarding his swallowing and nutrition. Told him that I would be going off-service and that a new MD will assume his care tomorrow. Total time today about 60 minutes. Continued [facility] stay due to: inadequate po fluid intake, multiple IV medications needed, other (pneumonia, severe dysphagia, NPO status) Discharge planning: home with home health
[2016-05-23] MEDS: NYSTATIN SUSP 500,000 U/5 ML UDC PO SCH (22:02)
[2016-05-24] VITALS (8 sets, daily range): BP systolic 142–178; BP diastolic 85–93; PULSE 52–71; TEMP 36.3–37; O2SAT 94–95
[2016-05-24] MEDS: D5W AND 1/2NSS + 20MEQ KCL 1,000 ML IV SCH ×3 (00:51→16:24)
[2016-05-24] MEDS: METRONIDAZOLE / NSS 500 MG in PREMIXED NSS 100 ML IV SCH ×3 (04:09→19:55)
[2016-05-24] MEDS: MoRPHine SULFATE 2 MG/ML CARP IV PRN ×3 (06:18→20:11)
[2016-05-24 06:31] LABS: INR 1.4 (0.9-1.1); PROTHROMBIN TIME (PATIENT) 14.9 SECONDS (9.0-12.0)
[2016-05-24 06:48] LABS: BUN/CREATININE RATIO 41.5 (10-20); CALCIUM 7.5 mg/dl (8.5-10.1); CREATININE 3.7 mg/dl (0.60-1.40); POTASSIUM 3.2 mmol/L (3.5-5.1)
[2016-05-24] MEDS: MEMANTINE 10 MG TAB PO SCH ×2 (08:00→20:00)
[2016-05-24] MEDS: NYSTATIN SUSP 500,000 U/5 ML UDC PO SCH ×4 (08:00→20:00)
[2016-05-24] MEDS: DIPHENOXYLATE/ATROPINE 2.5/0.025MG TAB PO SCH ×4 (08:00→20:00)
[2016-05-24] MEDS: HydrALAZINE 10 MG TAB PO SCH ×3 (08:00→19:59)
[2016-05-24] MEDS: BOOST PLUS VANILLA PO SCH ×6 (08:00→16:24)
[2016-05-24] MEDS: BusPIRone 15 MG TAB PO SCH ×3 (08:00→19:59)
[2016-05-24] MEDS: FEXOFENADINE HCL 180 MG TAB PO SCH (08:00)
[2016-05-24] MEDS: ARIPIprazole TAB 10 MG TAB PO SCH (08:00)
[2016-05-24] MEDS: LOPERAMIDE HCL 2 MG CAP PO SCH ×4 (08:00→19:59)
[2016-05-24] MEDS: MAGNESIUM OXIDE 400 MG TAB PO SCH (08:00)
[2016-05-24] MEDS: CHOLECALCIFEROL 1000 INTER.UNIT TAB PO SCH (08:00)
[2016-05-24] MEDS: ASPIRIN 81 MG ECTAB PO SCH (08:00)
--- NOTE | 2016-05-24 09:25 | Progress Note ---
Subjective Date of Service: May 24, 2016. (Kaylie Mancia PA-C) Subjective Pt evaluation today including: conversation w/ patient, physical exam, chart review, lab review, review of studies, review of inpatient medication list Patient seen and evaluated. No acute events overnight. Caregiver at bedside. Patient with hard to understand speech but was able to understand some things. Patient state he is "starved" when asked how he is doing. Discussed the concern for aspiration with patient. Discussed different options to include an NGT and TPN through PICC. When discussing PICC for possible TPN and if he would be interested in that he said "yeah" as confirmed by caregiver. Kept reiterating but stating "starved" and at the end of my conversation said "tube" but sounded like "pain" however stopped restating when I asked him if he was saying tube. Reassessment - Spoke with caregiver at bedside and patient's speech is more understandable at this time. Discussed patient's advanced directives that stated no artificial feedings if he is terminal but at this point is uncomfortable because he is hungry. Patient will use thumbs up and thumbs down for yes and no. When asked for NGT he said no. Discussed PICC for TPN and explained this is temporary and stated yes and gave thumbs up and verbally said "IV". Did discuss PEG tube as a more long-term option but did not get much of a response in regards to that. Will need consent obtained from POA (Pan) and when mentioned that to patient he nodded and said Pan. Further discussion with patient and caregiver. Plan for PEG tube and will consult GI. Patient does have advanced Keeler's however answers appropriately and is in the right state of mind to express his own wishes. Speech is hard to comprehend at times but some phrases are understandable. He expresses discomfort with feeling hungry. (Kaylie Mancia PA-C) Problem List Medical Problems: (1) Bilateral pneumonia Status: Acute (2) Bradycardia Status: Acute (3) Cerebral contusion Status: Acute (Kaylie Mancia PA-C) Review of Systems Largely deferred as patient speech limited. Only verbalized "starved" and "tube "? (Kaylie Mancia PA-C) Medications Current Inpatient Medications Medications (Trade) Dose Ordered Sig/Rachel Route Start Time Stop Time Status Last Admin Dose Admin Aripiprazole (Abilify Tab) 25 mg DAILY PO 05/22/16 08:00 06/21/16 08:59 05/23/16 08:02 25 MG Aspirin (Ecotrin Tab) 81 mg DAILY PO 05/22/16 08:00 06/21/16 08:59 05/23/16 08:01 81 MG Baclofen (Lioresal Tab) 10 mg HS PO 05/22/16 21:00 06/21/16 20:59 05/22/16 20:40 10 MG Cholecalciferol (Vitamin D Tab) 1,000 inter.unit DAILY PO 05/22/16 08:00 06/21/16 08:59 05/23/16 08:01 1,000 INTER.UNIT Diphenoxylate HCl/ Atropine (Lomotil Tab) 1 tab QID PO 05/22/16 08:00 06/21/16 08:59 05/23/16 08:02 1 TAB Donepezil HCl (Aricept Tab) 10 mg HS PO 05/22/16 21:00 06/21/16 20:59 05/22/16 20:40 10 MG Dorzolamide/ Timolol (Cosopt Op Soln) 1 drops BID OPL 05/22/16 08:00 06/21/16 08:59 05/23/16 20:34 1 DROPS Fexofenadine HCl (Scarlett Tab) 180 mg DAILY PO 05/22/16 08:00 06/21/16 07:59 05/23/16 08:01 180 MG Loperamide HCl (Imodium Cap) 2 mg QID PO 05/22/16 08:00 06/21/16 08:59 05/23/16 08:01 2 MG Memantine (Namenda Tab) 10 mg BID PO 05/22/16 08:00 06/21/16 08:59 05/23/16 08:01 10 MG Miconazole Nitrate (Monistat-Derm Crm) 1 appln DAILY EXT 05/22/16 08:00 06/21/16 08:59 05/23/16 08:03 1 APPLN Quetiapine Fumarate (seroQUEL TAB) 25 mg HS PO 05/22/16 21:00 06/21/16 20:59 05/22/16 20:41 25 MG Sertraline HCl (Zoloft Tab) 300 mg HS PO 05/22/16 21:00 06/21/16 20:59 05/22/16 20:41 300 MG Travoprost (Travatan Z) 1 drops HS OPL 05/22/16 21:00 06/21/16 20:59 05/23/16 20:34 1 DROPS Buspirone HCl (BusPAR TAB) 15 mg TID PO 05/22/16 08:00 06/21/16 07:59 05/23/16 08:01 15 MG Magnesium Oxide (Mag-Ox Tab) 400 mg DAILY PO 05/22/16 08:00 06/21/16 07:59 05/23/16 08:01 400 MG Acetaminophen (Tylenol Tab) 650 mg Q4H PRN PO 05/22/16 02:15 06/21/16 02:14 05/22/16 16:37 650 MG Al Hydrox/Mg Hydrox/Simethicone (Maalox Max Susp) 15 ml Q4H PRN PO 05/22/16 02:15 06/21/16 02:14 Magnesium Hydroxide (Milk Of Magnesia Susp) 30 ml Q6H PRN PO 05/22/16 02:15 06/21/16 02:14 Polyethylene (Miralax Powder Packet) 17 gm DAILY PRN PO 05/22/16 02:15 06/21/16 02:14 Ondansetron HCl 4 mg 4 mg Q6H PRN IV 05/22/16 02:15 06/21/16 02:14 Ceftriaxone Sodium 1 gm/ Dextrose 50 ml @ 100 mls/hr Q24H IV 05/22/16 10:00 05/29/16 09:59 05/23/16 10:41 100 MLS/HR Metronidazole/Prmx (Flagyl / Nss/ Premixed Nss) 100 ml @ 100 mls/hr Q8H IV 05/22/16 12:00 05/29/16 08:44 05/24/16 04:09 100 MLS/HR Enteral Nutritional Formula (Boost Plus Vanilla) 1 can TIDM PO 05/22/16 17:00 06/21/16 16:59 05/23/16 08:00 1 CAN Morphine Sulfate (MoRPHine SULFATE INJ) 2 mg Q2H PRN IV 05/22/16 18:30 2/4/17 18:29 05/24/16 06:18 2 MG Hydralazine HCl 10 mg 10 mg TID PO 05/23/16 10:00 06/22/16 09:59 Potassium Chloride/Dextrose/ Sod Cl (D5W And 1/2nss + 20meq KCl) 1,000 ml @ 125 mls/hr Q8H IV 05/23/16 16:30 06/22/16 16:29 05/24/16 00:51 125 MLS/HR Heparin Sodium (Porcine) (Heparin Sq 5000 Unit/0.5ml) 5,000 unit Q12 SQ 05/23/16 21:00 06/22/16 20:59 05/23/16 20:44 5,000 UNIT Nystatin (Mycostatin Susp) 5 ml QID PO 05/23/16 20:30 06/02/16 20:29 05/23/16 22:02 5 ML (Kaylie Mancia PA-C) Objective Vital Signs Date Time Temp Pulse Resp B/P Pulse Ox O2 Delivery O2 Flow Rate FiO2 05/24/16 07:45 37.0 62 18 178/92 94 Room Air 05/24/16 04:00 64 167/88 05/24/16 00:10 36.3 63 16 170/88 94 Room Air 05/24/16 00:00 Room Air 05/23/16 20:00 Room Air 05/23/16 16:23 Room Air 05/23/16 15:35 36.1 51 18 152/78 95 Room Air (Kaylie Mancia PA-C) Physical Exam General Appearance: no apparent distress, + thin, + pertinent finding ( disheveled) Eyes: sclerae normal ENT: hearing grossly normal, + pertinent finding (pharynx dry with yellow/ brown phlegm no erythema note; dentition poor) Neck: no JVD, trachea midline Respiratory/Chest: no respiratory distress, no accessory muscle use Cardiovascular: regular rate, rhythm, no gallop, no murmur Abdomen: normal bowel sounds, non tender, soft Extremities: + swelling (1+ pitting edema of bilateral lower extremities; bilat lower extremities with skin taunt and shiny and chronic brown discoloration; hands appear mildly edematous bilat) Neurologic/Psychiatric: alert Skin: warm/dry (Kaylie Mancia PA-C) Laboratory Results Last 24 Hours Test 05/23/16 14:24 05/24/16 05:45 Sodium Level 148 mmol/L 149 mmol/L Potassium Level 3.3 mmol/L 3.2 mmol/L Chloride Level 109 mmol/L 112 mmol/L Carbon Dioxide Level 25 mmol/L 22 mmol/L Anion Gap 14.0 mmol/L 15.0 mmol/L Blood Urea Nitrogen 169 mg/dl 154 mg/dl Creatinine 4.30 mg/dl 3.70 mg/dl Est Creatinine Clear Calc Drug Dose 14.5 ml/min 16.9 ml/min Estimated GFR () 15.7 18.9 Estimated GFR (Non- 13.6 16.3 BUN/Creatinine Ratio 39.3 41.5 Random Glucose 121 mg/dl 113 mg/dl Calcium Level 7.7 mg/dl 7.5 mg/dl Iron Level 55 mcg/dl Total Iron Binding Capacity 112 mcg/dl Transferrin 91 mg/dl Transferrin % Saturation 43 % Ferritin 472.9 ng/ml Prothrombin Time 14.9 SECONDS Prothromb Time International Ratio 1.4 (Kaylie Mancia PA-C) Assessment and Plan Acute Renal Failure with Uremia: - Extremely poor oral intake 2-3 weeks - Assessment - slowly improving with IVFs - Cr at 3.7 which is improved from 6 on admission - ATN? - Continue monitoring with BMPs - Repeat U/A - D5W + 1/2 NSS + 20 mEq KCl Metabolic Acidosis 2/2 Uremia: IMPROVED - Continue monitoring Dysphagia with Recurrent Aspiration and Aspiration PNA: ABX DAY 3 of 10 - Speech evaluation - recommending NPO including meds -- Advanced directives express no artificial feedings - Rocephin 1 g daily and Flagyl 500 mg Q8H - Consult GI - possible PEG tube? 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 Continued [facility] stay due to: inadequate po fluid intake, multiple IV medications needed, other (pneumonia, severe dysphagia, NPO status) Discharge planning: home with home health (Kaylie Mancia, ERICK) PA Physician Supervision Note: I interviewed and examined the patient. Discussed with Kaylie Mancia PAC and agree with findings and plan as documented in the note. Any exceptions or clarifications are listed here: None vitals stable exan shows patient is alert and can communicate with help of geriatric personal care aide and gives thumbs up thumbs down to respond at times, discussion of supplemental feeding and as listed on living will, this is not to bu used in end of life situations, but the pt has capacity to understand but not to speak, wishes to pursue PEG feedings if GI Medicine agrees 66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 Likely ATN. CT abd/pelvis w/o hydronephrosis or evidence of obstruction. recent SAH 2nd to trauma requiring hospital stay at [facility] [place] in 04/16 - repeat head CT today negative for ICH. Resume heparin for DVT proph. Severe dysphagia with known recurrent aspiration - appreciate speech therapy eval. He was aspirating at home on thickened liquids and modified solids. Aspiration pneumonia, most likely aspiration - rocephin/flagyl, Plan 10 day course. 05/31/16 mild-moderate protein calorie malnutrition - chronic, due to dementia, difficulty eating, etc. microcytic anemia - check iron studies. elevated INR - repeat in am. If still high suspect vitamin K deficiency. DVT proph - heparin BID. glaucoma - continue outpatient drops. patient's brother, Dr. Pan Garrett -who is a lab technologist. [phone]. Documented By: Nikko Chen (Nikko Chen M.D.)
[2016-05-24] MEDS: CEFTRIAXONE SOD INJ 1 GM in DEXTROSE 5% ADD-VANTAGE 50ML 50 ML IV SCH (10:15)
[2016-05-24] MEDS: HEPARIN SOD 5000 UNIT/0.5 ML CARP SQ SCH ×2 (10:25→20:04)
[2016-05-24] MEDS: DORZOLAMIDE/TIMOLOL 22.3/6.8MG/ML 10 ML BTL OPL SCH ×2 (10:28→19:58)
[2016-05-24] MEDS: MICONAZOLE NITRATE 2% CR 30 GM TUBE EXT SCH (10:28)
[2016-05-24] MEDS: HydrALAZINE HCL 20 MG/ML VIAL IV. PRN (16:28)
--- NOTE | 2016-05-24 16:30 | Gastrointestinal Consultation ---
Gastrointestinal Consultation Date of Consultation: May 24, 2016 Attending Physician: Dr. Rodas, Dr. Chen Consulting Physician: Yoli Courtney PA-C Reason for Consultation: recurrent aspiration History of Present Illness Patient is a 66 year old male with a past medical history of Huntingtons Disease who is presently hospitalized with acute renal failure and recurrent aspiration. He has been evaluated by [facility] and the recommendation for NPO status has been made. The patient has reportedly been claiming to be "starving" due to his current NPO status and further options have been presented to the patient by his primary team of providers. Despite his previous advanced directives stating his refusal for artificial feeding, the patient has reportedly changed his mind at present. Per documentation, this has been discussed at length with the patient and his POA (brother) who is a gear cutter. The patient has decided that he wishes to pursue PEG tube placement. Speech & conversation with patient is greatly limited due to his condition. Past Medical/Surgical History Medical Problems: (1) Bilateral pneumonia Status: Acute (2) Bradycardia Status: Acute (3) Cerebral contusion Status: Acute Past Medical History: Kameron's, HTN, Dementia Past Surgical History: EGD, colonoscopy Family History Heart disease Social History Smoking Status: Former Smoker Alcohol Use: none Drug Use: none Marital Status: single Housing Status: lives alone Occupation Status: retired Allergies Coded Allergies: Penicillins (Verified Allergy, Unknown, unknown, Per Erik Chang: pt rec'd ancef in OR w/o rxn, 01/12/16) pt/spouse Current Medications Home Meds and Scripts Medications Dose Route/Sig Max Daily Dose Days Date Category Travatan Z (Travoprost) 0.004 % Chris 1 Drops OPL HS 05/22/16 Reported Namenda (Memantine) 10 Mg Tab 10 Mg PO BID 05/22/16 Reported Aricept (Donepezil Hydrochloride) 10 Mg Tab 10 Mg PO HS 05/22/16 Reported Vitamin D3 (Cholecalciferol) 1,000 Unit Tab 1,000 Units PO DAILY 05/22/16 Reported Magnesium Oxide (Magnesium Oxide (Mg Supplement) 400 Mg Tab 400 Mg PO DAILY 04/13/16 Reported Zoloft (Sertraline HCl) 100 Mg Tab 300 Mg PO HS 04/13/16 Reported Scarlett (Fexofenadine Hcl) 60 Mg Tab 180 Mg PO DAILY 04/13/16 Reported Lomotil (Diphenoxylate HCl/Atropine) Tab 1 Tab PO QID 04/13/16 Reported Imodium (Loperamide HCl) 2 Mg Cap 2 Mg PO QID 04/13/16 Reported Miconazole Nitrate 90 Appln/30 Gm Cr 1 Appln EXT DAILY 30 01/16/16 Rx Kp Melatonin (Melatonin) 3 Mg Tab 2 Tab PO HS 01/12/16 Reported Multivitamin (Multivitamins) Tab 1 Tab PO QAM 01/12/16 Reported Lioresal (Baclofen) 10 Mg Tab 10 Mg PO HS 01/12/16 Reported Seroquel (Quetiapine Fumarate) 25 Mg Tab 25 Mg PO HS 01/12/16 Reported Abilify (Aripiprazole) 10 Mg Tab 2.5 Tab PO DAILY 04/13/15 Reported Aspirin Ec (Aspirin) 81 Mg Tab 81 Mg PO DAILY 04/13/15 Reported Motrin (Ibuprofen) 400 Mg Tab 600 Mg PO QID PRN 03/03/14 Reported Buspirone Hcl 10 Mg Tab 15 Mg PO TID 03/03/14 Reported Cosopt Oph (Dorzolamide Hcl-Timolol Maleat) 1 Addie Addie 1 Drops OPL BID 03/03/14 Reported Review of Systems ROS limited due to speech; Patient does say he wants "a tube." Physical Exam Date Time Temp Pulse Resp B/P Pulse Ox O2 Delivery O2 Flow Rate FiO2 05/24/16 15:17 37.0 60 20 164/93 95 05/24/16 10:50 52 153/88 05/24/16 08:15 Room Air 05/24/16 07:45 37.0 62 18 178/92 94 Room Air 05/24/16 04:00 64 167/88 05/24/16 00:10 36.3 63 16 170/88 94 Room Air 05/24/16 00:00 Room Air 05/23/16 20:00 Room Air General Appearance: + cachetic, + thin Eyes: + pertinent finding Respiratory/Chest: chest non-tender, normal breath sounds Cardiovascular: regular rate, rhythm Abdomen: normal bowel sounds Extremities: non-tender Neurologic/Psych: alert Skin: normal color Laboratory Results Last 24 Hours Test 05/24/16 05:45 05/24/16 16:04 Prothrombin Time 14.9 SECONDS Prothromb Time International Ratio 1.4 Sodium Level 149 mmol/L Potassium Level 3.2 mmol/L Chloride Level 112 mmol/L Carbon Dioxide Level 22 mmol/L Anion Gap 15.0 mmol/L Blood Urea Nitrogen 154 mg/dl Creatinine 3.70 mg/dl Est Creatinine Clear Calc Drug Dose 16.9 ml/min Estimated GFR () 18.9 Estimated GFR (Non- 16.3 BUN/Creatinine Ratio 41.5 Random Glucose 113 mg/dl Calcium Level 7.5 mg/dl Impression Patient is a 66 year old male with 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 Plan Despite previous advanced directive suggesting that he does not desire artificial feeding, the patient now expresses that he has changed his mind. He has been counseled that this will not change the outcome of his progressive neurological condition and indicates understanding. He is alert and presently oriented. Keep NPO for PEG placement tomorrow. Thank you for allowing us to participate in the care of this patient. If you should have any further questions or concerns, do not hesitate to contact us. Agree with MIMI Bagley as above Gen: Alert and oriented x3, chronic ill-appearing Abd: Soft, NT, ND, +BS Patient wants to have PEG Tube placed for continued feeding problems. Informed patient that a PEG tube will not decrease his mortality or prevent aspiration. Discussed case with Dr. Chen and he is in agreement that the patient is able to make his own decisions.
[2016-05-24 16:48] LABS: BUN/CREATININE RATIO 42.2 (10-20); CREATININE 3.5 mg/dl (0.60-1.40); POTASSIUM 3.3 mmol/L (3.5-5.1)
[2016-05-24] MEDS: SERTRALINE HCL 100 MG TAB PO SCH (20:01)
[2016-05-24] MEDS: BACLOFEN 10 MG TAB PO SCH (20:01)
[2016-05-24] MEDS: QUETIAPINE FUMARATE 25 MG TAB PO SCH (20:01)
[2016-05-24] MEDS: DONEPEZIL HCL 10 MG TAB PO SCH (20:01)
[2016-05-24] MEDS: TRAVOPROST Z 0.004% OPH SOLN 2.5 ML BTL OPL SCH (20:07)
[2016-05-25] MEDS: D5W AND 1/2NSS + 20MEQ KCL 1,000 ML IV SCH ×4 (00:38→22:45)
[2016-05-25] MEDS: METRONIDAZOLE / NSS 500 MG in PREMIXED NSS 100 ML IV SCH ×3 (04:06→19:41)
[2016-05-25] MEDS: MoRPHine SULFATE 2 MG/ML CARP IV PRN ×3 (04:46→21:53)
[2016-05-25 07:50] LABS: BUN/CREATININE RATIO 42.6 (10-20); CREATININE 3.4 mg/dl (0.60-1.40); POTASSIUM 3.5 mmol/L (3.5-5.1)
[2016-05-25] MEDS: FEXOFENADINE HCL 180 MG TAB PO SCH (07:51)
[2016-05-25] MEDS: HydrALAZINE 10 MG TAB PO SCH ×3 (07:51→19:36)
[2016-05-25] MEDS: ARIPIprazole TAB 10 MG TAB PO SCH (07:51)
[2016-05-25] MEDS: BOOST PLUS VANILLA PO SCH ×6 (07:51→16:06)
[2016-05-25] MEDS: BusPIRone 15 MG TAB PO SCH ×2 (07:51→13:36)
[2016-05-25] MEDS: MAGNESIUM OXIDE 400 MG TAB PO SCH (07:52)
[2016-05-25] MEDS: MEMANTINE 10 MG TAB PO SCH ×2 (07:52→19:51)
[2016-05-25] MEDS: DIPHENOXYLATE/ATROPINE 2.5/0.025MG TAB PO SCH ×4 (07:52→19:36)
[2016-05-25] MEDS: LOPERAMIDE HCL 2 MG CAP PO SCH ×4 (07:52→19:36)
[2016-05-25] MEDS: CHOLECALCIFEROL 1000 INTER.UNIT TAB PO SCH (07:52)
[2016-05-25] MEDS: ASPIRIN 81 MG ECTAB PO SCH (07:52)
[2016-05-25 07:55] VITALS: BP 151/79; PULSE 66; TEMP 36.2; O2SAT 97
[2016-05-25] MEDS: DORZOLAMIDE/TIMOLOL 22.3/6.8MG/ML 10 ML BTL OPL SCH ×2 (08:13→19:50)
[2016-05-25] MEDS: NYSTATIN SUSP 500,000 U/5 ML UDC PO SCH ×4 (08:15→19:51)
[2016-05-25] MEDS: MICONAZOLE NITRATE 2% CR 30 GM TUBE EXT SCH (08:16)
[2016-05-25] MEDS: HEPARIN SOD 5000 UNIT/0.5 ML CARP SQ SCH ×2 (09:00→21:34)
[2016-05-25] MEDS ORDERED: NURSING VERBAL MED ORDER ONE ×2 (09:30→17:00)
[2016-05-25] MEDS: CEFTRIAXONE SOD INJ 1 GM in DEXTROSE 5% ADD-VANTAGE 50ML 50 ML IV SCH (09:31)
[2016-05-25] MEDS ORDERED: FENTANYL CITRATE INJ 50 MCG/1 ML 2 ML VIAL ONE (12:56)
[2016-05-25] MEDS ORDERED: MIDAZOLAM HCL 1 MG/ML 2ML VIAL ONE (12:56)
[2016-05-25] MEDS ORDERED: ONDANSETRON INJ 2 MG/ML 2 ML VIAL ONE (12:57)
[2016-05-25] MEDS ORDERED: PROPOFOL IV EMULSION 10 MG/ML 20 ML VIAL IV ONE (12:57)
[2016-05-25] MEDS ORDERED: LIDOCAINE HCL 2% 2 ML VIAL (20MG/ML) ONE (12:57)
[2016-05-25] MEDS ORDERED: PHENYLEPHRINE HCL INJ 10 MG/ML VIAL ONE (13:01)
[2016-05-25] MEDS ORDERED: EpHEDrine SULFATE INJ 50 MG/ML AMP IV PRN (13:45)
[2016-05-25] MEDS ORDERED: ATROPINE SULFATE 0.1 MG/ML 5ML SYR IV PRN (13:45)
--- NOTE | 2016-05-25 14:00 | GI REPORT ---
Procedure Date: 05/25/2016 1:17 PM Procedure: Upper GI endoscopy Indications: Place PEG due to neurological disorder causing impaired swallowing Medicines: Monitored Anesthesia Care Complications: No immediate complications. Estimated Blood Loss: Estimated blood loss: none. Procedure: Pre-Anesthesia Assessment: - Prior to the procedure, a History and Physical was performed, and patient medications and allergies were reviewed. The patient's tolerance of previous anesthesia was also reviewed. The risks and benefits of the procedure and the sedation options and risks were discussed with the patient. All questions were answered, and informed consent was obtained. Prior Anticoagulants: The patient has taken aspirin, last dose was 2 days prior to procedure. ASA Grade Assessment: IV - A patient with severe systemic disease that is a constant threat to life. After reviewing the risks and benefits, the patient was deemed in satisfactory condition to undergo the procedure. After obtaining informed consent, the endoscope was passed under direct vision. Throughout the procedure, the patient's blood pressure, pulse, and oxygen saturations were monitored continuously. The On-site loaner was introduced through the mouth, and advanced to the second part of duodenum. The upper GI endoscopy was accomplished without difficulty. The patient tolerated the procedure well. Findings: The esophagus was normal. Scattered moderate inflammation characterized by erosions and erythema was found in the entire examined stomach. The patient was placed in the supine position for PEG placement. The stomach was insufflated to appose gastric and abdominal copeland. A site was located in the body of the stomach with excellent transillumination for placement. The abdominal wall was marked and prepped in a sterile manner. The area was anesthetized with 2 mL of 1% lidocaine. The trocar needle was introduced through the abdominal wall and into the stomach under direct endoscopic view. A snare was introduced through the endoscope and opened in the gastric lumen. The guide wire was passed through the trocar and into the open snare. The snare was closed around the guide wire. The endoscope and snare were removed, pulling the wire out through the mouth. A skin incision was made at the site of needle insertion. The externally removable 20 Fr Eligio-Cook gastrostomy tube was lubricated. The G-tube was tied to the guide wire and pulled through the mouth and into the stomach. The trocar needle was removed, and the gastrostomy tube was pulled out from the stomach through the skin. The external bumper was attached to the gastrostomy tube, and the tube was cut to remove the guide wire. The final position of the gastrostomy tube was confirmed by relook endoscopy, and skin marking noted to be 2 cm at the external bumper. The final tension and compression of the abdominal wall by the PEG tube and external bumper were checked and revealed that the bumper was moderately tight and mildly deforming the skin. The feeding tube was capped, and the tube site cleaned and dressed. The examined duodenum was normal. Impression: - Normal esophagus. - Gastritis. - Normal examined duodenum. - An externally removable PEG placement was successfully completed. - No specimens collected. Recommendation: - Please follow the post-PEG recommendations including: Nutrition consult for formula and volume, antibiotic ointment to site and start using PEG today. - Use Protonix (pantoprazole) 40 mg IV daily. - Return patient to hospital [facility] for ongoing care. Christiano Wills, DO 05/25/2016 1:59:50 PM This report has been signed electronically. Note Initiated On: 05/25/2016 1:17 PM
--- NOTE | 2016-05-25 14:31 | Anesthesiology Progress Note ---
Anesthesia Post Op Note Date & Time May 25, 2016 at 14:30 Vital Signs Pain Intensity: 0.0 Vital Signs Past 12 Hours Date Time Temp Pulse Resp B/P Pulse Ox O2 Delivery O2 Flow Rate FiO2 05/25/16 14:18 60 16 149/90 99 Room Air 05/25/16 14:03 62 16 122/71 97 Mask 10 05/25/16 12:52 36.5 61 20 146/85 96 Room Air 05/25/16 10:38 Room Air 05/25/16 08:15 Room Air 05/25/16 07:55 36.2 66 16 151/79 97 Room Air Notes Mental Status: alert / awake / arousable, participated in evaluation Pt Amnestic to Procedure: Yes Nausea / Vomiting: adequately controlled Pain: adequately controlled Airway Patency, RR, SpO2: stable & adequate BP & HR: stable & adequate Hydration State: stable & adequate Anesthetic Complications: no major complications apparent
[2016-05-25] MEDS ORDERED: FIBERSOURCE HN 1000ML BAG PEG SCH ×2 (15:15)
[2016-05-25 15:17] VITALS: BP_SYST 168; BP_SYST 177; BP_DIAS 102; BP_DIAS 95; PULSE 64; TEMP 36.4; O2SAT 94
[2016-05-25] MEDS: HydrALAZINE HCL 20 MG/ML VIAL IV. PRN (15:29)
[2016-05-25 15:31] VITALS: BP 171/100; PULSE 62; TEMP 36.4; O2SAT 95
--- NOTE | 2016-05-25 15:40 | Progress Note ---
Subjective Date of Service: May 25, 2016. Subjective pt was seen pre PEG placement and was all for it today, it was placed successfully and pt will begin tube feeding tonight Problem List Medical Problems: (1) Bilateral pneumonia Status: Acute (2) Bradycardia Status: Acute (3) Cerebral contusion Status: Acute Review of Systems Constitutional: + weakness, No chills, No fever Respiratory: + cough, No dyspnea on exertion, No shortness of breath Cardiac: + edema (hands), No chest pain Abdomen: No diarrhea, No nausea, No pain, No vomiting Male : + incontinence, No dysuria Psychiatric: + depression symptoms Objective Vital Signs Date Time Temp Pulse Resp B/P Pulse Ox O2 Delivery O2 Flow Rate FiO2 05/25/16 07:55 36.2 66 16 151/79 97 Room Air 05/25/16 00:00 Room Air 05/24/16 23:23 36.5 67 22 158/85 94 Room Air 05/24/16 20:00 Room Air 05/24/16 18:37 71 142/87 05/24/16 17:54 37.0 60 20 164/93 95 Room Air 05/24/16 16:45 Room Air 05/24/16 15:17 37.0 60 20 164/93 95 05/24/16 10:50 52 153/88 05/24/16 08:15 Room Air Physical Exam General Appearance: + mild distress, + thin Neck: supple, no JVD Respiratory/Chest: no respiratory distress, + decreased breath sounds (rhonchi at bases) Cardiovascular: regular rate, rhythm, no murmur Abdomen: normal bowel sounds, non tender, soft Extremities: no calf tenderness, + swelling (to bilateral hands consider third spacing ) Laboratory Results Last 24 Hours Test 05/24/16 16:04 05/25/16 06:43 Sodium Level 147 mmol/L 147 mmol/L Potassium Level 3.3 mmol/L 3.5 mmol/L Chloride Level 111 mmol/L 114 mmol/L Carbon Dioxide Level 22 mmol/L 21 mmol/L Anion Gap 14.0 mmol/L 12.0 mmol/L Blood Urea Nitrogen 148 mg/dl 145 mg/dl Creatinine 3.50 mg/dl 3.40 mg/dl Est Creatinine Clear Calc Drug Dose 17.8 ml/min 19.2 ml/min Estimated GFR () 20.2 20.9 Estimated GFR (Non- 17.4 18.0 BUN/Creatinine Ratio 42.2 42.6 Random Glucose 147 mg/dl 132 mg/dl Calcium Level 8.0 mg/dl 8.0 mg/dl Assessment and Plan 66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 Likely ATN. CT abd/pelvis w/o hydronephrosis or evidence of obstruction. has improved steadily and daily but still with significant elevations Severe dysphagia with known recurrent aspiration - appreciate speech therapy eval. He was aspirating at home on thickened liquids and modified solids. Aspiration pneumonia, most likely aspiration - rocephin/flagyl, Plan 10 day course. 05/31/16 After discussion pt is agreeable to PEG placement and it was performed 05/25/16 will have nutrition consult and start feeding for his moderate malnutrition recent SAH 2nd to trauma requiring hospital stay at [facility] [place] - repeat head CT negative for ICH. Resume heparin for DVT proph. glaucoma - continue outpatient drops. patient's brother, Dr. Pan Garrett -who is a recording studio intern. [phone]. was updated 05/24 Documented By: Nikko Chen Continued [facility] stay due to: inadequate po fluid intake, multiple IV medications needed, other (pneumonia, severe dysphagia, NPO status) Discharge planning: home with home health
[2016-05-25] MEDS: FIBERSOURCE HN 1000ML BAG PEG SCH ×2 (16:20)
[2016-05-25 16:30] VITALS: BP 157/86; PULSE 83
[2016-05-25] MEDS: BusPIRone 15 MG TAB PEG SCH (19:50)
[2016-05-25] MEDS: NEOMYCIN/POLYMYX/BACITR OINT 15 GM TUBE EXT SCH (20:13)
[2016-05-25] MEDS: QUETIAPINE FUMARATE 25 MG TAB PO SCH (21:31)
[2016-05-25] MEDS: SERTRALINE HCL 100 MG TAB PEG SCH (21:32)
[2016-05-25] MEDS: BACLOFEN 10 MG TAB PEG SCH (21:32)
[2016-05-25] MEDS: DONEPEZIL HCL 10 MG TAB PEG SCH (21:33)
[2016-05-25] MEDS: TRAVOPROST Z 0.004% OPH SOLN 2.5 ML BTL OPL SCH (21:36)
[2016-05-25 23:13] VITALS: BP 158/87; PULSE 72; TEMP 36.2; O2SAT 94
[2016-05-26] MEDS: MoRPHine SULFATE 2 MG/ML CARP IV PRN ×5 (00:07→13:17)
[2016-05-26] MEDS: METRONIDAZOLE / NSS 500 MG in PREMIXED NSS 100 ML IV SCH ×3 (03:41→20:10)
[2016-05-26 07:37] VITALS: BP 134/81; PULSE 63; TEMP 36.3; O2SAT 95
[2016-05-26] MEDS: D5W AND 1/2NSS + 20MEQ KCL 1,000 ML IV SCH ×2 (07:57→16:36)
[2016-05-26 08:14] LABS: HEMATOCRIT 31.9 % (42-52); MEAN CELL VOLUME 80.6 fL (80-100); MEAN CORPUSCULAR HGB CONC 36.1 g/dl (32-36); MEAN PLATELET VOLUME 9.9 fL (7.4-10.4); PLATELET COUNT 177 K/uL (130-400); RED BLOOD COUNT 3.96 M/uL (4.7-6.1); WHITE BLOOD COUNT 13.61 K/uL (4.8-10.8)
[2016-05-26] MEDS: LOPERAMIDE HCL 2 MG CAP PO SCH ×4 (08:32→20:00)
[2016-05-26] MEDS: BOOST PLUS VANILLA PO SCH ×6 (08:32→16:45)
[2016-05-26] MEDS: DIPHENOXYLATE/ATROPINE 2.5/0.025MG TAB PO SCH ×4 (08:32→20:00)
[2016-05-26 08:35] LABS: BASO % 0.1 %; BASO ABS # 0.02 K/uL (0-0.2); COMPLETE YES; EOS % 3.5 %; IG% 0.4 %; LYMPH % 4.6 %; LYMPH ABS # 0.62 K/uL (1.2-3.4); MONO % 5.5 %; NEUT % 85.9 %
[2016-05-26 08:44] LABS: BUN/CREATININE RATIO 40.4 (10-20); CALCIUM 7.7 mg/dl (8.5-10.1); CREATININE 3.3 mg/dl (0.60-1.40); MAGNESIUM 2.1 mg/dl (1.8-2.4); POTASSIUM 3.9 mmol/L (3.5-5.1)
[2016-05-26 08:45] LABS: PHOSPHORUS 6.4 mg/dl (2.5-4.9)
[2016-05-26] MEDS: NEOMYCIN/POLYMYX/BACITR OINT 15 GM TUBE EXT SCH ×2 (08:58→20:10)
[2016-05-26] MEDS: MICONAZOLE NITRATE 2% CR 30 GM TUBE EXT SCH (08:58)
[2016-05-26] MEDS: DORZOLAMIDE/TIMOLOL 22.3/6.8MG/ML 10 ML BTL OPL SCH ×2 (08:59→20:10)
[2016-05-26] MEDS: ASPIRIN 81 MG CHEW PEG SCH (09:02)
[2016-05-26] MEDS: BusPIRone 15 MG TAB PEG SCH ×3 (09:03→20:13)
[2016-05-26] MEDS: MAGNESIUM OXIDE 400 MG TAB PEG SCH (09:03)
[2016-05-26] MEDS: CHOLECALCIFEROL 1000 INTER.UNIT TAB PEG SCH (09:04)
[2016-05-26] MEDS: ARIPIprazole TAB 10 MG TAB PO SCH (09:05)
[2016-05-26] MEDS: HydrALAZINE 10 MG TAB PO SCH ×2 (09:07→14:25)
[2016-05-26] MEDS: FEXOFENADINE HCL 180 MG TAB PO SCH (09:07)
[2016-05-26] MEDS: HEPARIN SOD 5000 UNIT/0.5 ML CARP SQ SCH ×2 (09:18→20:33)
[2016-05-26] MEDS: NYSTATIN SUSP 500,000 U/5 ML UDC PO SCH ×4 (09:19→20:14)
--- NOTE | 2016-05-26 09:36 | Gastroenterology Progress Note ---
Progress Note Date of Service: May 26, 2016 Subjective Pt evaluation today including: conversation w/ patient, physical exam, lab review, review of studies Patient is a 66 yo male with [place]'s Disease resulting in inability to tolerate po nutrition. Patient is s/p PEG placement on 05/25/16. Bedside discussion with nursing staff did not yield any significant issues with the PEG tube. His feedings are running at 50 cc/hr and will be increased to 70 cc/hr this AM. Nursing reports he is utilizing pain medications every 3 hours. Residual of 25 cc noted this morning. Patient denies significant issues at present. Review of Systems Denies acute pain; ROS limited due to poor speech Medications Current Inpatient Medications Medications (Trade) Dose Ordered Sig/Rachel Route Start Time Stop Time Status Last Admin Dose Admin Diphenoxylate HCl/ Atropine (Lomotil Tab) 1 tab QID PO 05/22/16 08:00 06/21/16 08:59 05/23/16 08:02 1 TAB Dorzolamide/ Timolol (Cosopt Op Soln) 1 drops BID OPL 05/22/16 08:00 06/21/16 08:59 05/26/16 08:59 1 DROPS Fexofenadine HCl (Scarlett Tab) 180 mg DAILY PO 05/22/16 08:00 06/21/16 07:59 05/26/16 09:07 180 MG Loperamide HCl (Imodium Cap) 2 mg QID PO 05/22/16 08:00 06/21/16 08:59 05/23/16 08:01 2 MG Memantine (Namenda Tab) 10 mg BID PO 05/22/16 08:00 06/24/16 07:59 05/25/16 19:51 10 MG Miconazole Nitrate (Monistat-Derm Crm) 1 appln DAILY EXT 05/22/16 08:00 06/21/16 08:59 05/26/16 08:58 1 APPLN Quetiapine Fumarate (seroQUEL TAB) 25 mg HS PO 05/22/16 21:00 06/21/16 20:59 05/22/16 20:41 25 MG Travoprost (Travatan Z) 1 drops HS OPL 05/22/16 21:00 06/21/16 20:59 05/25/16 21:36 1 DROPS Acetaminophen (Tylenol Tab) 650 mg Q4H PRN PO 05/22/16 02:15 06/21/16 02:14 05/22/16 16:37 650 MG Al Hydrox/Mg Hydrox/Simethicone (Maalox Max Susp) 15 ml Q4H PRN PO 05/22/16 02:15 06/21/16 02:14 Magnesium Hydroxide (Milk Of Magnesia Susp) 30 ml Q6H PRN PO 05/22/16 02:15 06/21/16 02:14 Polyethylene (Miralax Powder Packet) 17 gm DAILY PRN PO 05/22/16 02:15 06/21/16 02:14 Ondansetron HCl 4 mg 4 mg Q6H PRN IV 05/22/16 02:15 06/21/16 02:14 Ceftriaxone Sodium 1 gm/ Dextrose 50 ml @ 100 mls/hr Q24H IV 05/22/16 10:00 05/29/16 09:59 05/25/16 09:31 100 MLS/HR Metronidazole/Prmx (Flagyl / Nss/ Premixed Nss) 100 ml @ 100 mls/hr Q8H IV 05/22/16 12:00 05/29/16 08:44 05/26/16 03:41 100 MLS/HR Enteral Nutritional Formula (Boost Plus Vanilla) 1 can TIDM PO 05/22/16 17:00 06/21/16 16:59 05/23/16 08:00 1 CAN Morphine Sulfate (MoRPHine SULFATE INJ) 2 mg Q2H PRN IV 05/22/16 18:30 06/05/16 18:29 05/26/16 07:12 2 MG Hydralazine HCl 10 mg 10 mg TID PO 05/23/16 10:00 06/22/16 09:59 05/26/16 09:07 10 MG Potassium Chloride/Dextrose/ Sod Cl (D5W And 1/2nss + 20meq KCl) 1,000 ml @ 125 mls/hr Q8H IV 05/23/16 16:30 06/22/16 16:29 05/26/16 07:57 125 MLS/HR Heparin Sodium (Porcine) (Heparin Sq 5000 Unit/0.5ml) 5,000 unit Q12 SQ 05/23/16 21:00 06/22/16 20:59 05/26/16 09:18 5,000 UNIT Nystatin (Mycostatin Susp) 5 ml QID PO 05/23/16 20:30 06/02/16 20:29 05/26/16 09:19 5 ML Hydralazine HCl 10 mg 10 mg Q6 PRN IV. 05/24/16 11:45 06/23/16 11:44 05/25/16 15:29 10 MG Pantoprazole Sodium/Syringe (Protonix Inj/ Syringe) 10 ml @ 5 mls/min DAILY@11 IV 05/26/16 11:00 06/25/16 10:59 Enteral Nutritional Formula (Fibersource HN) 1,000 ml UD PEG 05/25/16 15:30 06/24/16 15:29 05/25/16 16:20 1,000 ML Miscellaneous Information (Pending Order) 1 ea QS N/A 05/25/16 16:00 06/24/16 15:59 Neomycin/ Polymyxin/ Bacitracin (Neosporin Oint) 1 appln BID EXT 05/25/16 20:00 06/24/16 19:59 05/26/16 08:58 1 APPLN Baclofen (Lioresal Tab) 10 mg HS PEG 05/25/16 21:00 06/24/16 20:59 05/25/16 21:32 10 MG Buspirone HCl (BusPAR TAB) 15 mg TID PEG 05/25/16 20:00 06/24/16 19:59 05/26/16 09:03 15 MG Cholecalciferol (Vitamin D Tab) 1,000 inter.unit DAILY PEG 05/26/16 08:00 06/25/16 07:59 05/26/16 09:04 1,000 INTER.UNIT Donepezil HCl (Aricept Tab) 10 mg HS PEG 05/25/16 21:00 06/24/16 20:59 05/25/16 21:33 10 MG Magnesium Oxide (Mag-Ox Tab) 400 mg DAILY PEG 05/26/16 08:00 06/25/16 07:59 05/26/16 09:03 400 MG Sertraline HCl (Zoloft Tab) 300 mg HS PEG 05/25/16 21:00 06/24/16 20:59 05/25/16 21:32 300 MG Aspirin (Aspirin Chew) 81 mg DAILY PEG 05/26/16 08:00 06/24/16 07:59 05/26/16 09:02 81 MG Aripiprazole (Abilify Tab) 25 mg DAILY PO 05/26/16 08:00 06/25/16 07:59 05/26/16 09:05 25 MG Objective Vital Signs Date Time Temp Pulse Resp B/P Pulse Ox O2 Delivery O2 Flow Rate FiO2 05/26/16 07:37 36.3 63 20 134/81 95 05/26/16 00:00 Room Air 05/25/16 23:13 36.2 72 18 158/87 94 Room Air 05/25/16 20:00 Room Air 05/25/16 16:30 83 157/86 05/25/16 16:02 Room Air 05/25/16 15:31 36.4 62 18 171/100 95 Room Air 05/25/16 15:17 36.4 64 18 177/95 94 Room Air 168/102 05/25/16 14:33 60 16 148/79 97 Room Air 05/25/16 14:18 60 16 149/90 99 Room Air 05/25/16 14:03 62 16 122/71 97 Mask 10 05/25/16 12:52 36.5 61 20 146/85 96 Room Air 05/25/16 10:38 Room Air Physical Exam General Appearance: WD/WN, no apparent distress Eyes: normal inspection Respiratory/Chest: lungs clear, normal breath sounds Cardiovascular: regular rate, rhythm Abdomen: normal bowel sounds, non tender, soft, + pertinent finding (PEG tube and external bumper in proper position without erythema or exudate) Extremities: non-tender Neurologic/Psych: alert Skin: normal color Laboratory Results Last 24 Hours Test 05/26/16 08:00 White Blood Count 13.61 K/uL Red Blood Count 3.96 M/uL Hemoglobin 11.5 g/dL Hematocrit 31.9 % Mean Corpuscular Volume 80.6 fL Mean Corpuscular Hemoglobin 29.0 pg Mean Corpuscular Hemoglobin Concent 36.1 g/dl Platelet Count 177 K/uL Mean Platelet Volume 9.9 fL Neutrophils (%) (Auto) 85.9 % Lymphocytes (%) (Auto) 4.6 % Monocytes (%) (Auto) 5.5 % Eosinophils (%) (Auto) 3.5 % Basophils (%) (Auto) 0.1 % Neutrophils # (Auto) 11.70 K/uL Lymphocytes # (Auto) 0.62 K/uL Monocytes # (Auto) 0.75 K/uL Eosinophils # (Auto) 0.47 K/uL Basophils # (Auto) 0.02 K/uL RDW Standard Deviation 38.6 fL RDW Coefficient of Variation 13.3 % Immature Granulocyte % (Auto) 0.4 % Immature Granulocyte # (Auto) 0.05 K/uL Sodium Level 147 mmol/L Potassium Level 3.9 mmol/L Chloride Level 116 mmol/L Carbon Dioxide Level 18 mmol/L Anion Gap 13.0 mmol/L Blood Urea Nitrogen 133 mg/dl Creatinine 3.30 mg/dl Est Creatinine Clear Calc Drug Dose 19.8 ml/min Estimated GFR () 21.7 Estimated GFR (Non- 18.7 BUN/Creatinine Ratio 40.4 Random Glucose 162 mg/dl Calcium Level 7.7 mg/dl Phosphorus Level 6.4 mg/dl Magnesium Level 2.1 mg/dl Assessment and Plan Patient is a 66 yo male with Kameron's Disease resulting in progressive dysphagia & aspiration. Patient had a PEG tube placed on 05/25/16. 1) Continue IV Protonix 40 mg daily. 2) Continue wound care and antibiotic ointment at PEG site. 3) Continue feedings per dietary recommendations. 4) Supportive care per primary team. Thank you for allowing us to participate in the care of this patient. If you should have any further questions or concerns, do not hesitate to contact us. Agree with MIMI Bagley as above Abd: Soft, NT, ND, +BS, PEG site without erythema or leakage Continue Tube feeds as per primary team.
[2016-05-26] MEDS: CEFTRIAXONE SOD INJ 1 GM in DEXTROSE 5% ADD-VANTAGE 50ML 50 ML IV SCH (10:31)
[2016-05-26] MEDS: PANTOprazole INJ 40 MG in SYRINGE 0 ML IV SCH (10:35)
[2016-05-26] MEDS ORDERED: CALCIUM ACETATE 667MG GELCAP PO SCH (12:00)
--- NOTE | 2016-05-26 12:09 | Progress Note ---
Subjective Date of Service: May 26, 2016. Subjective Pt evaluation today including: conversation w/ patient, physical exam, chart review, lab review, review of studies, review of inpatient medication list Patient seen and evaluated. S/P Peg tube POD #1 Patient is sleeping in bed during exam. Easily awakes to verbal stimuli. No caregivers at bedside. ROS limited given lethargy and difficulty with speech. Denies pain and reports he does not feel starved. Verbalizes no other complaints. Feedings increased to goal rate. Problem List Medical Problems: (1) Bilateral pneumonia Status: Acute (2) Bradycardia Status: Acute (3) Cerebral contusion Status: Acute Review of Systems ROS limited. See HPI Medications Current Inpatient Medications Medications (Trade) Dose Ordered Sig/Rachel Route Start Time Stop Time Status Last Admin Dose Admin Diphenoxylate HCl/ Atropine (Lomotil Tab) 1 tab QID PO 05/22/16 08:00 06/21/16 08:59 05/23/16 08:02 1 TAB Dorzolamide/ Timolol (Cosopt Op Soln) 1 drops BID OPL 05/22/16 08:00 06/21/16 08:59 05/26/16 08:59 1 DROPS Fexofenadine HCl (Scarlett Tab) 180 mg DAILY PO 05/22/16 08:00 06/21/16 07:59 05/26/16 09:07 180 MG Loperamide HCl (Imodium Cap) 2 mg QID PO 05/22/16 08:00 06/21/16 08:59 05/23/16 08:01 2 MG Memantine (Namenda Tab) 10 mg BID PO 05/22/16 08:00 06/24/16 07:59 05/25/16 19:51 10 MG Miconazole Nitrate (Monistat-Derm Crm) 1 appln DAILY EXT 05/22/16 08:00 06/21/16 08:59 05/26/16 08:58 1 APPLN Quetiapine Fumarate (seroQUEL TAB) 25 mg HS PO 05/22/16 21:00 06/21/16 20:59 05/22/16 20:41 25 MG Travoprost (Travatan Z) 1 drops HS OPL 05/22/16 21:00 06/21/16 20:59 05/25/16 21:36 1 DROPS Acetaminophen (Tylenol Tab) 650 mg Q4H PRN PO 05/22/16 02:15 06/21/16 02:14 05/22/16 16:37 650 MG Al Hydrox/Mg Hydrox/Simethicone (Maalox Max Susp) 15 ml Q4H PRN PO 05/22/16 02:15 06/21/16 02:14 Magnesium Hydroxide (Milk Of Magnesia Susp) 30 ml Q6H PRN PO 05/22/16 02:15 06/21/16 02:14 Polyethylene (Miralax Powder Packet) 17 gm DAILY PRN PO 05/22/16 02:15 06/21/16 02:14 Ondansetron HCl 4 mg 4 mg Q6H PRN IV 05/22/16 02:15 06/21/16 02:14 Ceftriaxone Sodium 1 gm/ Dextrose 50 ml @ 100 mls/hr Q24H IV 05/22/16 10:00 05/29/16 09:59 05/26/16 10:31 100 MLS/HR Metronidazole/Prmx (Flagyl / Nss/ Premixed Nss) 100 ml @ 100 mls/hr Q8H IV 05/22/16 12:00 05/29/16 08:44 05/26/16 03:41 100 MLS/HR Enteral Nutritional Formula (Boost Plus Vanilla) 1 can TIDM PO 05/22/16 17:00 06/21/16 16:59 05/23/16 08:00 1 CAN Morphine Sulfate (MoRPHine SULFATE INJ) 2 mg Q2H PRN IV 05/22/16 18:30 06/05/16 18:29 05/26/16 07:12 2 MG Hydralazine HCl 10 mg 10 mg TID PO 05/23/16 10:00 06/22/16 09:59 05/26/16 09:07 10 MG Potassium Chloride/Dextrose/ Sod Cl (D5W And 1/2nss + 20meq KCl) 1,000 ml @ 125 mls/hr Q8H IV 05/23/16 16:30 06/22/16 16:29 05/26/16 07:57 125 MLS/HR Heparin Sodium (Porcine) (Heparin Sq 5000 Unit/0.5ml) 5,000 unit Q12 SQ 05/23/16 21:00 06/22/16 20:59 05/26/16 09:18 5,000 UNIT Nystatin (Mycostatin Susp) 5 ml QID PO 05/23/16 20:30 06/02/16 20:29 05/26/16 09:19 5 ML Hydralazine HCl 10 mg 10 mg Q6 PRN IV. 05/24/16 11:45 06/23/16 11:44 05/25/16 15:29 10 MG Pantoprazole Sodium/Syringe (Protonix Inj/ Syringe) 10 ml @ 5 mls/min DAILY@11 IV 05/26/16 11:00 06/25/16 10:59 05/26/16 10:35 5 MLS/MIN Enteral Nutritional Formula (Fibersource HN) 1,000 ml UD PEG 05/25/16 15:30 06/24/16 15:29 05/25/16 16:20 1,000 ML Miscellaneous Information (Pending Order) 1 ea QS N/A 05/25/16 16:00 06/24/16 15:59 Neomycin/ Polymyxin/ Bacitracin (Neosporin Oint) 1 appln BID EXT 05/25/16 20:00 06/24/16 19:59 05/26/16 08:58 1 APPLN Baclofen (Lioresal Tab) 10 mg HS PEG 05/25/16 21:00 06/24/16 20:59 05/25/16 21:32 10 MG Buspirone HCl (BusPAR TAB) 15 mg TID PEG 05/25/16 20:00 06/24/16 19:59 05/26/16 09:03 15 MG Cholecalciferol (Vitamin D Tab) 1,000 inter.unit DAILY PEG 05/26/16 08:00 06/25/16 07:59 05/26/16 09:04 1,000 INTER.UNIT Donepezil HCl (Aricept Tab) 10 mg HS PEG 05/25/16 21:00 06/24/16 20:59 05/25/16 21:33 10 MG Magnesium Oxide (Mag-Ox Tab) 400 mg DAILY PEG 05/26/16 08:00 06/25/16 07:59 05/26/16 09:03 400 MG Sertraline HCl (Zoloft Tab) 300 mg HS PEG 05/25/16 21:00 06/24/16 20:59 05/25/16 21:32 300 MG Aspirin (Aspirin Chew) 81 mg DAILY PEG 05/26/16 08:00 06/24/16 07:59 05/26/16 09:02 81 MG Aripiprazole (Abilify Tab) 25 mg DAILY PO 05/26/16 08:00 06/25/16 07:59 05/26/16 09:05 25 MG Objective Vital Signs Date Time Temp Pulse Resp B/P Pulse Ox O2 Delivery O2 Flow Rate FiO2 05/26/16 07:37 36.3 63 20 134/81 95 05/26/16 00:00 Room Air 05/25/16 23:13 36.2 72 18 158/87 94 Room Air 05/25/16 20:00 Room Air 05/25/16 16:30 83 157/86 05/25/16 16:02 Room Air 05/25/16 15:31 36.4 62 18 171/100 95 Room Air 05/25/16 15:17 36.4 64 18 177/95 94 Room Air 168/102 05/25/16 14:33 60 16 148/79 97 Room Air 05/25/16 14:18 60 16 149/90 99 Room Air 05/25/16 14:03 62 16 122/71 97 Mask 10 05/25/16 12:52 36.5 61 20 146/85 96 Room Air Physical Exam General Appearance: no apparent distress, + cachetic Eyes: sclerae normal ENT: hearing grossly normal Neck: supple, no JVD, trachea midline Respiratory/Chest: lungs clear, normal breath sounds, no respiratory distress, no accessory muscle use, + decreased breath sounds (bases bilat) Cardiovascular: regular rate, rhythm, no gallop, no murmur Abdomen: normal bowel sounds, non tender, soft, + pertinent finding (PEG placed with dressing that is clean/dry/intact; surround skin without erythema, edema, or drainage) Extremities: + swelling (1+ pitting edema lower extremities bilat; edema of hands bilat) Neurologic/Psychiatric: + pertinent finding (lethargic) Skin: normal color, warm/dry Laboratory Results Last 24 Hours Test 05/26/16 08:00 White Blood Count 13.61 K/uL Red Blood Count 3.96 M/uL Hemoglobin 11.5 g/dL Hematocrit 31.9 % Mean Corpuscular Volume 80.6 fL Mean Corpuscular Hemoglobin 29.0 pg Mean Corpuscular Hemoglobin Concent 36.1 g/dl Platelet Count 177 K/uL Mean Platelet Volume 9.9 fL Neutrophils (%) (Auto) 85.9 % Lymphocytes (%) (Auto) 4.6 % Monocytes (%) (Auto) 5.5 % Eosinophils (%) (Auto) 3.5 % Basophils (%) (Auto) 0.1 % Neutrophils # (Auto) 11.70 K/uL Lymphocytes # (Auto) 0.62 K/uL Monocytes # (Auto) 0.75 K/uL Eosinophils # (Auto) 0.47 K/uL Basophils # (Auto) 0.02 K/uL RDW Standard Deviation 38.6 fL RDW Coefficient of Variation 13.3 % Immature Granulocyte % (Auto) 0.4 % Immature Granulocyte # (Auto) 0.05 K/uL Sodium Level 147 mmol/L Potassium Level 3.9 mmol/L Chloride Level 116 mmol/L Carbon Dioxide Level 18 mmol/L Anion Gap 13.0 mmol/L Blood Urea Nitrogen 133 mg/dl Creatinine 3.30 mg/dl Est Creatinine Clear Calc Drug Dose 19.8 ml/min Estimated GFR () 21.7 Estimated GFR (Non- 18.7 BUN/Creatinine Ratio 40.4 Random Glucose 162 mg/dl Calcium Level 7.7 mg/dl Phosphorus Level 6.4 mg/dl Magnesium Level 2.1 mg/dl Assessment and Plan Acute Renal Failure with Uremia - Likely ATN: - Extremely poor oral intake 2-3 weeks [employer] - Assessment - slowly improving with IVFs - extremity edema present - Continue monitoring with BMPs and Phos levels - D5W + 1/2 NSS + 20 mEq KCl Metabolic Acidosis 2/2 Uremia: - Continue monitoring - Consult Nephrology - recommendations on fluid administration and further management Dysphagia with Recurrent Aspiration and Aspiration PNA: ABX DAY 5 of 10 - Rocephin 1 g daily and Flagyl 500 mg Q8H - GI following - S/P Peg Tube 05/25/16 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 Current Renal Status: - Hydralazine 10 mg TID 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: - Continue home meds of Abilify, Buspar, Aricept, Namenda, Seroquel, and Zoloft Fluid and Electrolytes: - Continue hydration and monitoring - replete as necessary DVT Prophylaxis: - Heparin 5000 units Q12H Code Status: - FULL - NO MECHANICAL VENTILATION Disposition: - Peg feedings at goal rate - kidney function slowly improving - D/C uncertain at this time - Will discuss with case management - caregivers with list of DME requests Continued [facility] stay due to: inadequate po fluid intake, multiple IV medications needed, other (pneumonia, severe dysphagia, NPO status) Discharge planning: home with home health
[2016-05-26] MEDS: MEMANTINE 10 MG TAB PO SCH ×2 (12:57→20:12)
[2016-05-26 14:16] VITALS: BP 158/88; PULSE 75; TEMP 36.1; O2SAT 93
[2016-05-26 16:03] VITALS: BP 132/80; PULSE 73; TEMP 36.7; O2SAT 94
[2016-05-26] MEDS: FIBERSOURCE HN 1000ML BAG PEG SCH ×2 (17:38)
[2016-05-26] MEDS ORDERED: POTASSIUM CHLORIDE IV SCH (18:00)
[2016-05-26] MEDS ORDERED: SODIUM BICARBONATE IV SCH (18:00)
[2016-05-26] MEDS ORDERED: [UNRECOGNIZED DRUG - OTHER] IV SCH (18:00)
--- NOTE | 2016-05-26 18:08 | Nephrology Consultation ---
Nephrology Consultation Date & Providers Date of Consultation: May 26, 2016. Primary Care Provider: Justice Neil M.D. Referring Provider: Reason for Consultation Evaluation of JAZMINE, metabolic acidosis and 3rd spacing of fluid History of Present Illness Mr. Garrett is a 66 year old male who is seen at the request of Dr. Chen for evaluation of JAZMINE, metabolic acidosis and 3rd spacing of fluid. 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 He lives at home and has two round the clock care givers. The patient was brought to the ED for evaluation of a recurrent cough 05/21/16. He was found to be profoundly dehydrated and in acute renal failure. BUN was 213 with Creatinine 6.0 (baseline 0.7 04/16). There was evidence of hypoalbuminemia and 3rd spacing of fluid. FeNa was 0.5%. Patient was admitted to the medical dill. He was started on IVF. BUN and creatinine have improved to 133 and 3.3. Patient now has a metabolic acidosis and dependent edema has worsened with IV hydration. Serum albumin is low at 2.7. He had abdominal CT performed which was negative for kidney obstruction or stone. Patient underwent PEG placement yesterday. Past Medical/Surgical History Medical: # [place]'s chorea # Dementia # Depression Surgical: # PEG placement 05/25/16 Allergies Coded Allergies: Penicillins (Verified Allergy, Unknown, unknown, Per Erik Chang: pt rec'd ancef in OR w/o rxn, 01/12/16) pt/spouse Inpatient Medications Current Inpatient Medications Medications (Trade) Dose Ordered Sig/Rachel Route Start Time Stop Time Status Last Admin Dose Admin Diphenoxylate HCl/ Atropine (Lomotil Tab) 1 tab QID PO 05/22/16 08:00 06/21/16 08:59 05/23/16 08:02 1 TAB Dorzolamide/ Timolol (Cosopt Op Soln) 1 drops BID OPL 05/22/16 08:00 06/21/16 08:59 05/26/16 08:59 1 DROPS Fexofenadine HCl (Scarlett Tab) 180 mg DAILY PO 05/22/16 08:00 06/21/16 07:59 05/26/16 09:07 180 MG Loperamide HCl (Imodium Cap) 2 mg QID PO 05/22/16 08:00 06/21/16 08:59 05/23/16 08:01 2 MG Memantine (Namenda Tab) 10 mg BID PO 05/22/16 08:00 06/24/16 07:59 05/26/16 12:57 10 MG Miconazole Nitrate (Monistat-Derm Crm) 1 appln DAILY EXT 05/22/16 08:00 06/21/16 08:59 05/26/16 08:58 1 APPLN Quetiapine Fumarate (seroQUEL TAB) 25 mg HS PO 05/22/16 21:00 06/21/16 20:59 05/22/16 20:41 25 MG Travoprost (Travatan Z) 1 drops HS OPL 05/22/16 21:00 06/21/16 20:59 05/25/16 21:36 1 DROPS Acetaminophen (Tylenol Tab) 650 mg Q4H PRN PO 05/22/16 02:15 06/21/16 02:14 05/22/16 16:37 650 MG Al Hydrox/Mg Hydrox/Simethicone (Maalox Max Susp) 15 ml Q4H PRN PO 05/22/16 02:15 06/21/16 02:14 Magnesium Hydroxide (Milk Of Magnesia Susp) 30 ml Q6H PRN PO 05/22/16 02:15 06/21/16 02:14 Polyethylene (Miralax Powder Packet) 17 gm DAILY PRN PO 05/22/16 02:15 06/21/16 02:14 Ondansetron HCl 4 mg 4 mg Q6H PRN IV 05/22/16 02:15 06/21/16 02:14 Ceftriaxone Sodium 1 gm/ Dextrose 50 ml @ 100 mls/hr Q24H IV 05/22/16 10:00 05/29/16 09:59 05/26/16 10:31 100 MLS/HR Metronidazole/Prmx (Flagyl / Nss/ Premixed Nss) 100 ml @ 100 mls/hr Q8H IV 05/22/16 12:00 05/29/16 08:44 05/26/16 12:40 100 MLS/HR Enteral Nutritional Formula (Boost Plus Vanilla) 1 can TIDM PO 05/22/16 17:00 06/21/16 16:59 05/23/16 08:00 1 CAN Morphine Sulfate (MoRPHine SULFATE INJ) 2 mg Q2H PRN IV 05/22/16 18:30 06/05/16 18:29 05/26/16 13:17 2 MG Hydralazine HCl (Apresoline Tab) 10 mg TID PO 05/23/16 10:00 06/22/16 09:59 05/26/16 14:25 10 MG Heparin Sodium (Porcine) (Heparin Sq 5000 Unit/0.5ml) 5,000 unit Q12 SQ 05/23/16 21:00 06/22/16 20:59 05/26/16 09:18 5,000 UNIT Nystatin (Mycostatin Susp) 5 ml QID PO 05/23/16 20:30 06/02/16 20:29 05/26/16 16:38 5 ML Hydralazine HCl 10 mg 10 mg Q6 PRN IV. 05/24/16 11:45 06/23/16 11:44 05/25/16 15:29 10 MG Pantoprazole Sodium/Syringe (Protonix Inj/ Syringe) 10 ml @ 5 mls/min DAILY@11 IV 05/26/16 11:00 06/25/16 10:59 05/26/16 10:35 5 MLS/MIN Enteral Nutritional Formula (Fibersource HN) 1,000 ml UD PEG 05/25/16 15:30 06/24/16 15:29 05/26/16 17:38 1,000 ML Miscellaneous Information (Pending Order) 1 ea QS N/A 05/25/16 16:00 06/24/16 15:59 Neomycin/ Polymyxin/ Bacitracin (Neosporin Oint) 1 appln BID EXT 05/25/16 20:00 06/24/16 19:59 05/26/16 08:58 1 APPLN Baclofen (Lioresal Tab) 10 mg HS PEG 05/25/16 21:00 06/24/16 20:59 05/25/16 21:32 10 MG Buspirone HCl (BusPAR TAB) 15 mg TID PEG 05/25/16 20:00 06/24/16 19:59 05/26/16 14:25 15 MG Cholecalciferol (Vitamin D Tab) 1,000 inter.unit DAILY PEG 05/26/16 08:00 06/25/16 07:59 05/26/16 09:04 1,000 INTER.UNIT Donepezil HCl (Aricept Tab) 10 mg HS PEG 05/25/16 21:00 06/24/16 20:59 05/25/16 21:33 10 MG Magnesium Oxide (Mag-Ox Tab) 400 mg DAILY PEG 05/26/16 08:00 06/25/16 07:59 05/26/16 09:03 400 MG Sertraline HCl (Zoloft Tab) 300 mg HS PEG 05/25/16 21:00 06/24/16 20:59 05/25/16 21:32 300 MG Aspirin (Aspirin Chew) 81 mg DAILY PEG 05/26/16 08:00 06/24/16 07:59 05/26/16 09:02 81 MG Aripiprazole 25 mg 25 mg DAILY PO 05/26/16 08:00 06/25/16 07:59 05/26/16 09:05 25 MG Sodium Bicarbonate/ Potassium Chloride/Dextrose (Sodium Bicarbonate 8.4% Inj/KCl Inj/D5W 1000ml) 1,085 ml @ 75 mls/hr [id number] IV 05/26/16 18:00 06/25/16 17:59 Family History Heart disease Brother is automotive designer Social History Smoking Status: Former Smoker Drug Use: none Marital Status: single Housing Status: lives alone Occupation: retired Retired. Lives at home with two round the clock care givers. History of tobacco use. Review of Systems Unable to obtain. Patient is nonconversant Physical Exam Date Time Temp Pulse Resp B/P Pulse Ox O2 Delivery O2 Flow Rate FiO2 05/26/16 16:03 36.7 73 18 132/80 94 Room Air 05/26/16 14:16 36.1 75 14 158/88 93 Room Air 05/26/16 08:00 Room Air 05/26/16 07:37 36.3 63 20 134/81 95 05/26/16 00:00 Room Air 05/25/16 23:13 36.2 72 18 158/87 94 Room Air 05/25/16 20:00 Room Air General Appearance: + thin (frail, chronically ill appearing) Head: atraumatic (temporal muscle wasting) Eyes: PERRL Neck: no adenopathy Respiratory/Chest: + rhonchi Cardiovascular: + tachycardia Abdomen/GI: non tender, + pertinent finding (PEG tube in place) Extremities/Musculoskelatal: + pertinent finding (1 + dependent edema) Neurologic/Psych: alert, + pertinent finding (nonvocal) Laboratory Results Last 24 Hours Test 05/26/16 07:26 05/26/16 08:00 Bedside Glucose 144 mg/dl White Blood Count 13.61 K/uL Red Blood Count 3.96 M/uL Hemoglobin 11.5 g/dL Hematocrit 31.9 % Mean Corpuscular Volume 80.6 fL Mean Corpuscular Hemoglobin 29.0 pg Mean Corpuscular Hemoglobin Concent 36.1 g/dl Platelet Count 177 K/uL Mean Platelet Volume 9.9 fL Neutrophils (%) (Auto) 85.9 % Lymphocytes (%) (Auto) 4.6 % Monocytes (%) (Auto) 5.5 % Eosinophils (%) (Auto) 3.5 % Basophils (%) (Auto) 0.1 % Neutrophils # (Auto) 11.70 K/uL Lymphocytes # (Auto) 0.62 K/uL Monocytes # (Auto) 0.75 K/uL Eosinophils # (Auto) 0.47 K/uL Basophils # (Auto) 0.02 K/uL RDW Standard Deviation 38.6 fL RDW Coefficient of Variation 13.3 % Immature Granulocyte % (Auto) 0.4 % Immature Granulocyte # (Auto) 0.05 K/uL Sodium Level 147 mmol/L Potassium Level 3.9 mmol/L Chloride Level 116 mmol/L Carbon Dioxide Level 18 mmol/L Anion Gap 13.0 mmol/L Blood Urea Nitrogen 133 mg/dl Creatinine 3.30 mg/dl Est Creatinine Clear Calc Drug Dose 19.8 ml/min Estimated GFR () 21.7 Estimated GFR (Non- 18.7 BUN/Creatinine Ratio 40.4 Random Glucose 162 mg/dl Calcium Level 7.7 mg/dl Phosphorus Level 6.4 mg/dl Magnesium Level 2.1 mg/dl Impression (1) ARF (acute renal failure) (2) Metabolic acidosis (3) Dehydration (4) Hypoalbuminemia (5) Peripheral edema 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 Patient had PEG placed 05/25/16. Recommendations ACUTE KIDNEY INJURY: -- Baseline creatinine 0.7 04/16 -- Abdominal CT reviewed. No renal obstruction -- Patient remains clinically volume contracted -- Admission FeNa was < 0.5% -- Renal function improving w/ IV hydration -- Will place jason catheter to monitor I&O's -- Will repeat urinalysis and UPCR -- Monitor PRP, LFT, serum albumin METABOLIC ACIDOSIS: -- High AGA due to JAZMINE -- Change IVF to D5W w/ 75 mEq NaHCO3 & 20 mEq KCl a 75 cc/hr 3rd SPACING VOLUME: -- Serum albumin is low. Patient has dependent edema -- Agree with starting enteral feeding via PEG
--- NOTE | 2016-05-26 18:27 | Progress Note ---
Subjective Date of Service: May 26, 2016. Subjective pt has no new issues, not tolerating peg feedings particularly well Problem List Medical Problems: (1) Bilateral pneumonia Status: Acute (2) Bradycardia Status: Acute (3) Cerebral contusion Status: Acute Review of Systems Constitutional: No chills, No fever Respiratory: + cough, No dyspnea on exertion, No shortness of breath Cardiac: No chest pain, No edema Abdomen: No diarrhea, No nausea, No pain, No vomiting Male : No dysuria, No urinary frequency Psychiatric: No anhedonism, No depression symptoms Objective Vital Signs Date Time Temp Pulse Resp B/P Pulse Ox O2 Delivery O2 Flow Rate FiO2 05/26/16 16:03 36.7 73 18 132/80 94 Room Air 05/26/16 14:16 36.1 75 14 158/88 93 Room Air 05/26/16 08:00 Room Air 05/26/16 07:37 36.3 63 20 134/81 95 05/26/16 00:00 Room Air 05/25/16 23:13 36.2 72 18 158/87 94 Room Air 05/25/16 20:00 Room Air Physical Exam General Appearance: WD/WN, + mild distress Neck: supple, no JVD Respiratory/Chest: chest non-tender, + decreased breath sounds, + accessory muscle use, + rhonchi Cardiovascular: regular rate, rhythm, no murmur Abdomen: normal bowel sounds, non tender, soft Extremities: no pedal edema, no calf tenderness Neurologic/Psychiatric: alert, + motor weakness Laboratory Results Last 24 Hours Test 05/26/16 07:26 05/26/16 08:00 Bedside Glucose 144 mg/dl White Blood Count 13.61 K/uL Red Blood Count 3.96 M/uL Hemoglobin 11.5 g/dL Hematocrit 31.9 % Mean Corpuscular Volume 80.6 fL Mean Corpuscular Hemoglobin 29.0 pg Mean Corpuscular Hemoglobin Concent 36.1 g/dl Platelet Count 177 K/uL Mean Platelet Volume 9.9 fL Neutrophils (%) (Auto) 85.9 % Lymphocytes (%) (Auto) 4.6 % Monocytes (%) (Auto) 5.5 % Eosinophils (%) (Auto) 3.5 % Basophils (%) (Auto) 0.1 % Neutrophils # (Auto) 11.70 K/uL Lymphocytes # (Auto) 0.62 K/uL Monocytes # (Auto) 0.75 K/uL Eosinophils # (Auto) 0.47 K/uL Basophils # (Auto) 0.02 K/uL RDW Standard Deviation 38.6 fL RDW Coefficient of Variation 13.3 % Immature Granulocyte % (Auto) 0.4 % Immature Granulocyte # (Auto) 0.05 K/uL Sodium Level 147 mmol/L Potassium Level 3.9 mmol/L Chloride Level 116 mmol/L Carbon Dioxide Level 18 mmol/L Anion Gap 13.0 mmol/L Blood Urea Nitrogen 133 mg/dl Creatinine 3.30 mg/dl Est Creatinine Clear Calc Drug Dose 19.8 ml/min Estimated GFR () 21.7 Estimated GFR (Non- 18.7 BUN/Creatinine Ratio 40.4 Random Glucose 162 mg/dl Calcium Level 7.7 mg/dl Phosphorus Level 6.4 mg/dl Magnesium Level 2.1 mg/dl Assessment and Plan 66yo male with Kameron chorea acute on chronic renal failure, dysphagia, and concerns for aspiration precluding any oral intake: acute renal failure / significant uremia - has improved but BUN still >100 and Cr > 3 will consult nephrology for further recommendations Severe dysphagia with known recurrent aspiration - appreciate speech therapy eval. He was aspirating at home on thickened liquids and modified solids. Aspiration pneumonia, most likely aspiration - rocephin/flagyl, Plan 10 day course. 05/31/16 After discussion pt is agreeable to PEG placement and it was performed 05/25/16 will have nutrition consult is not getting to full range, try reglan to assist in stomach emptying recent SAH 2nd to trauma [place] [facility] [place] - repeat head CT negative for ICH. Resume heparin for DVT proph. glaucoma - continue outpatient drops. patient's brother, Dr. Pan Garrett -who is a mixer attendant. [phone]. was updated 05/24, karina clinical care coordinator updated 05/26 Documented By: Nikko Chen Continued [facility] stay due to: inadequate po fluid intake, multiple IV medications needed, other (pneumonia, severe dysphagia, NPO status) Discharge planning: home with home health
[2016-05-26 19:01] LABS: URINE APPEARANCE CLOUDY (CLEAR); URINE BILIRUBIN NEG (NEG); URINE COLOR YELLOW; URINE EPITHELIAL CELL AUTO >30 /lpf (0-5); URINE NITRITE NEG (NEG); URINE PH 6.5 (4.5-7.5); UROBILINOGEN NEG (NEG)
[2016-05-26 19:11] LABS: MANUAL MICROSCOPIC REQUIRED? NO; REVIEW REQ? YES
[2016-05-26 19:16] LABS: URINE PATH CASTS 1-5 GRANULAR CASTS /lpf (0)
[2016-05-26 19:29] LABS: URINE PROTIEN/CREAT RATIO 34.2 (0-0.2); URINE TOTAL PROTEIN 1643.7 mg/dl (0-11.9)
[2016-05-26] MEDS: DONEPEZIL HCL 10 MG TAB PEG SCH (20:11)
[2016-05-26] MEDS: HydrALAZINE 10 MG TAB PEG SCH (20:13)
[2016-05-26] MEDS: TRAVOPROST Z 0.004% OPH SOLN 2.5 ML BTL OPL SCH (20:14)
[2016-05-26] MEDS: SERTRALINE HCL 100 MG TAB PEG SCH (20:15)
[2016-05-26] MEDS: BACLOFEN 10 MG TAB PEG SCH (20:15)
[2016-05-26] MEDS: METOCLOPRAMIDE HCL 5 MG/5 ML UDP PO SCH (20:27)
[2016-05-26 23:30] VITALS: BP 137/90; PULSE 81; TEMP 36.6; O2SAT 93
[2016-05-27] MEDS: METRONIDAZOLE / NSS 500 MG in PREMIXED NSS 100 ML IV SCH ×3 (04:00→19:51)
[2016-05-27] MEDS: METOCLOPRAMIDE HCL 5 MG/5 ML UDP PO SCH ×3 (06:14→21:32)
[2016-05-27 06:43] LABS: HEMATOCRIT 30.7 % (42-52); MEAN CELL VOLUME 80.6 fL (80-100); MEAN CORPUSCULAR HEMOGLOBIN 28.3 pg (25-34); MEAN CORPUSCULAR HGB CONC 35.2 g/dl (32-36); MEAN PLATELET VOLUME 10.6 fL (7.4-10.4); PLATELET COUNT 183 K/uL (130-400); RED BLOOD COUNT 3.81 M/uL (4.7-6.1); WHITE BLOOD COUNT 13.97 K/uL (4.8-10.8)
[2016-05-27 07:12] LABS: BUN/CREATININE RATIO 37.9 (10-20); CALCIUM 7.5 mg/dl (8.5-10.1); CREATININE 3.3 mg/dl (0.60-1.40)
[2016-05-27 07:58] VITALS: BP 126/83; PULSE 74; TEMP 36.3; O2SAT 93
[2016-05-27] MEDS: BOOST PLUS VANILLA PO SCH ×6 (09:05→16:18)
[2016-05-27] MEDS: NEOMYCIN/POLYMYX/BACITR OINT 15 GM TUBE EXT SCH ×2 (09:16→20:17)
[2016-05-27] MEDS: DORZOLAMIDE/TIMOLOL 22.3/6.8MG/ML 10 ML BTL OPL SCH ×2 (09:20→20:17)
[2016-05-27] MEDS: HydrALAZINE 10 MG TAB PEG SCH ×3 (09:23→20:18)
[2016-05-27] MEDS: BusPIRone 15 MG TAB PEG SCH ×3 (09:26→20:17)
[2016-05-27] MEDS: ASPIRIN 81 MG CHEW PEG SCH (09:26)
[2016-05-27] MEDS: MAGNESIUM OXIDE 400 MG TAB PEG SCH (09:27)
[2016-05-27] MEDS: CHOLECALCIFEROL 1000 INTER.UNIT TAB PEG SCH (09:27)
[2016-05-27] MEDS: ARIPIprazole TAB 10 MG TAB PO SCH (09:28)
[2016-05-27] MEDS: LOPERAMIDE HCL 2 MG CAP PO SCH ×4 (09:30→20:18)
[2016-05-27] MEDS: FEXOFENADINE HCL 180 MG TAB PO SCH (09:30)
[2016-05-27] MEDS: DIPHENOXYLATE/ATROPINE 2.5/0.025MG TAB PO SCH ×4 (09:31→20:18)
[2016-05-27] MEDS: MEMANTINE 10 MG TAB PO SCH ×2 (09:33→20:18)
[2016-05-27] MEDS: NYSTATIN SUSP 500,000 U/5 ML UDC PO SCH ×4 (09:41→20:18)
[2016-05-27] MEDS: MICONAZOLE NITRATE 2% CR 30 GM TUBE EXT SCH (09:41)
[2016-05-27] MEDS: HEPARIN SOD 5000 UNIT/0.5 ML CARP SQ SCH ×2 (09:45→21:32)
--- NOTE | 2016-05-27 09:56 | Nephrology Progress Note ---
Nephrology Progress Note Date of Service May 27, 2016. Chief Complaint Evaluation of JAZMINE, metabolic acidosis and 3rd spacing of fluid Subjective Mr. Garrett was seen & examined in his hospital room this morning. He was sleeping but awakens to voice. He remains nonverbal. Patient has received ~ 12 L IV hydration since admission. He has developed dependent edema. Jason catheter was placed last evening. Patient is oliguric. Urine microscopy shows granular casts c/w ATN. Review of Systems Patient is nonverbal Vital Signs Last 8 Hrs Date Time Temp Pulse Resp B/P Pulse Ox O2 Delivery O2 Flow Rate FiO2 05/27/16 07:58 36.3 74 16 126/83 93 Room Air I & O 24-Hour Column 05/27/16 08:00 Intake Total 2823 ml Output Total 425 ml Balance 2398 ml Last Recorded Weight Weight (Kilograms): 61.800 Physical Exam General Appearance: + thin (frail, chronically ill appearing) Head: atraumatic (temporal muscle wasting) Eyes: + pertinent finding (dilated left pupil) ENT: + pertinent finding (dry mucous membranes. Dentition in poor repair) Neck: no adenopathy, no JVD Respiratory/Chest: lungs clear (anteriorly. Patient could not sit forward for examination of posterior lung sol) Abdomen/GI: non tender (hypoactive bowel sounds. 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 Lives at home with two round the clock care givers. History of tobacco use. Laboratory Results Past 24 Hours 05/27/16 05:31 05/27/16 05:31 Test 05/26/16 18:40 05/27/16 05:31 Urine Color YELLOW Urine Appearance CLOUDY (CLEAR) Urine pH 6.5 (4.5-7.5) Urine Specific [place] 1.020 (1.000-1.030) Urine Protein 4+ (NEG) Urine Glucose (UA) 2+ (NEG) Urine Ketones NEG (NEG) Urine Occult Blood 2+ (NEG) Urine Nitrite NEG (NEG) Urine Bilirubin NEG (NEG) Urine Urobilinogen NEG (NEG) Urine Leukocyte Esterase TRACE (NEG) Urine WBC (Auto) 10-30 /hpf (0-5) Urine RBC (Auto) 10-30 /hpf (0-4) Urine Hyaline Casts (Auto) >30 /lpf (0-5) Urine Epithelial Cells (Auto) >30 /lpf (0-5) Urine Bacteria (Auto) NEG (NEG) Urine Renal Epithelial Cells 0-5 /lpf (0-5) Urine Crystals AMORPHOUS SEDIMENT (NONE Urine Pathogenic Casts 1-5 GRANULAR CASTS /lpf (0) Urine Yeast (Auto) (NONE PRSENT) Urine Random Creatinine 48.0 mg/dl Urine Random Total Protein 1643.7 mg/dl (0-11.9) Urine Protein/Creatinine Ratio 34.2 (0-0.2) Red Blood Count 3.81 M/uL (4.7-6.1) Mean Corpuscular Volume 80.6 fL (80-100) Mean Corpuscular Hemoglobin 28.3 pg (25-34) Mean Corpuscular Hemoglobin Concent 35.2 g/dl (32-36) RDW Standard Deviation 39.4 fL (36.4-46.3) RDW Coefficient of Variation 13.5 % (11.5-14.5) Mean Platelet Volume 10.6 fL (7.4-10.4) Anion Gap 12.0 mmol/L (3-11) Est Creatinine Clear Calc Drug Dose 19.8 ml/min Estimated GFR () 21.7 Estimated GFR (Non- 18.7 BUN/Creatinine Ratio 37.9 (10-20) Calcium Level 7.5 mg/dl (8.5-10.1) Allergies Coded Allergies: Penicillins (Verified Allergy, Unknown, unknown, Per Erik Chang: pt rec'd ancef in OR w/o rxn, 01/12/16) pt/spouse Medications Current Inpatient Medications Medications (Trade) Dose Ordered Sig/Rachel Route Start Time Stop Time Status Last Admin Dose Admin Diphenoxylate HCl/ Atropine (Lomotil Tab) 1 tab QID PO 05/22/16 08:00 06/21/16 08:59 05/23/16 08:02 1 TAB Dorzolamide/ Timolol (Cosopt Op Soln) 1 drops BID OPL 05/22/16 08:00 06/21/16 08:59 05/26/16 20:10 1 DROPS Fexofenadine HCl (Scarlett Tab) 180 mg DAILY PO 05/22/16 08:00 06/21/16 07:59 05/26/16 09:07 180 MG Loperamide HCl (Imodium Cap) 2 mg QID PO 05/22/16 08:00 06/21/16 08:59 05/23/16 08:01 2 MG Memantine (Namenda Tab) 10 mg BID PO 05/22/16 08:00 06/24/16 07:59 05/26/16 20:12 10 MG Miconazole Nitrate (Monistat-Derm Crm) 1 appln DAILY EXT 05/22/16 08:00 06/21/16 08:59 05/26/16 08:58 1 APPLN Quetiapine Fumarate (seroQUEL TAB) 25 mg HS PO 05/22/16 21:00 06/21/16 20:59 Future Hold 05/22/16 20:41 25 MG Travoprost (Travatan Z) 1 drops HS OPL 05/22/16 21:00 06/21/16 20:59 05/26/16 20:14 1 DROPS Acetaminophen (Tylenol Tab) 650 mg Q4H PRN PO 05/22/16 02:15 06/21/16 02:14 05/22/16 16:37 650 MG Al Hydrox/Mg Hydrox/Simethicone (Maalox Max Susp) 15 ml Q4H PRN PO 05/22/16 02:15 06/21/16 02:14 Magnesium Hydroxide (Milk Of Magnesia Susp) 30 ml Q6H PRN PO 05/22/16 02:15 06/21/16 02:14 Polyethylene (Miralax Powder Packet) 17 gm DAILY PRN PO 05/22/16 02:15 06/21/16 02:14 Ondansetron HCl 4 mg 4 mg Q6H PRN IV 05/22/16 02:15 06/21/16 02:14 Ceftriaxone Sodium 1 gm/ Dextrose 50 ml @ 100 mls/hr Q24H IV 05/22/16 10:00 05/29/16 09:59 05/26/16 10:31 100 MLS/HR Metronidazole/Prmx (Flagyl / Nss/ Premixed Nss) 100 ml @ 100 mls/hr Q8H IV 05/22/16 12:00 05/29/16 08:44 05/27/16 04:00 100 MLS/HR Enteral Nutritional Formula (Boost Plus Vanilla) 1 can TIDM PO 05/22/16 17:00 06/21/16 16:59 05/23/16 08:00 1 CAN Morphine Sulfate (MoRPHine SULFATE INJ) 2 mg Q2H PRN IV 05/22/16 18:30 06/05/16 18:29 05/26/16 13:17 2 MG Heparin Sodium (Porcine) (Heparin Sq 5000 Unit/0.5ml) 5,000 unit Q12 SQ 05/23/16 21:00 06/22/16 20:59 05/26/16 20:33 5,000 UNIT Nystatin (Mycostatin Susp) 5 ml QID PO 05/23/16 20:30 06/02/16 20:29 05/26/16 20:14 5 ML Hydralazine HCl 10 mg 10 mg Q6 PRN IV. 05/24/16 11:45 06/23/16 11:44 05/25/16 15:29 10 MG Pantoprazole Sodium/Syringe (Protonix Inj/ Syringe) 10 ml @ 5 mls/min DAILY@11 IV 05/26/16 11:00 06/25/16 10:59 05/26/16 10:35 5 MLS/MIN Enteral Nutritional Formula (Fibersource HN) 1,000 ml UD PEG 05/25/16 15:30 06/24/16 15:29 05/26/16 17:38 1,000 ML Miscellaneous Information (Pending Order) 1 ea QS N/A 05/25/16 16:00 06/24/16 15:59 Neomycin/ Polymyxin/ Bacitracin (Neosporin Oint) 1 appln BID EXT 05/25/16 20:00 06/24/16 19:59 05/26/16 20:10 1 APPLN Baclofen (Lioresal Tab) 10 mg HS PEG 05/25/16 21:00 06/24/16 20:59 05/26/16 20:15 10 MG Buspirone HCl (BusPAR TAB) 15 mg TID PEG 05/25/16 20:00 06/24/16 19:59 05/26/16 20:13 15 MG Cholecalciferol (Vitamin D Tab) 1,000 inter.unit DAILY PEG 05/26/16 08:00 06/25/16 07:59 05/26/16 09:04 1,000 INTER.UNIT Donepezil HCl (Aricept Tab) 10 mg HS PEG 05/25/16 21:00 06/24/16 20:59 05/26/16 20:11 10 MG Magnesium Oxide (Mag-Ox Tab) 400 mg DAILY PEG 05/26/16 08:00 06/25/16 07:59 05/26/16 09:03 400 MG Sertraline HCl (Zoloft Tab) 300 mg HS PEG 05/25/16 21:00 06/24/16 20:59 05/26/16 20:15 300 MG Aspirin (Aspirin Chew) 81 mg DAILY PEG 05/26/16 08:00 06/24/16 07:59 05/26/16 09:02 81 MG Aripiprazole 25 mg 25 mg DAILY PO 05/26/16 08:00 06/25/16 07:59 05/26/16 09:05 25 MG Sodium Bicarbonate/ Potassium Chloride/Dextrose (Sodium Bicarbonate 8.4% Inj/KCl Inj/D5W 1000ml) 1,085 ml @ 75 mls/hr [id number] IV 05/26/16 18:00 06/25/16 17:59 05/26/16 18:32 75 MLS/HR Metoclopramide HCl (Reglan Syrup) 5 mg Q8 PO 05/26/16 22:00 06/25/16 21:59 05/27/16 06:14 5 MG Hydralazine HCl (Apresoline Tab) 10 mg TID PEG 05/26/16 20:00 06/25/16 19:59 05/26/16 20:13 10 MG Impression (1) ARF (acute renal failure) (2) Metabolic acidosis (3) Dehydration (4) Hypoalbuminemia (5) Peripheral edema Chronically ill middle age male with [place]'s chorea, dementia and chronic aspiration. He was admitted for evaluation of dehydration, JAZMINE, metabolic acidosis and hypoalbuminemia. He has 3rd spacing of fluid into the dependent areas of his arms and legs. Patient had PEG placed 05/25/16. Abdominal CT was negative for obstruction. FeNa was < 0.5%. Urine sediment shows granular casts c/w ATN. Patient has high AG metabolic acidosis on the basis of JAZMINE. Recommendations ACUTE KIDNEY INJURY: -- Baseline creatinine 0.7 04/16 -- Abdominal CT 05/22/16: No renal obstruction -- Admission FeNa was < 0.5% -- Urine sediment shows granular casts c/w ATN -- Hold IVF at this time due to ATN, oliguria and progressive peripheral edema -- Monitor UO, PRP METABOLIC ACIDOSIS: -- High AGA due to JAZMINE -- Acidemia improved with NaHCO3 therapy. Target serum HCO3 20 - 22 -- Will hold IVF at this time due to ATN, oliguria and progressive peripheral edema MALNUTRITION: -- Serum albumin is low. Patient has dependent edema -- Agree with starting enteral feeding via PEG -- Will order free water via PEG
[2016-05-27] MEDS: CEFTRIAXONE SOD INJ 1 GM in DEXTROSE 5% ADD-VANTAGE 50ML 50 ML IV SCH (09:57)
[2016-05-27] MEDS: MoRPHine SULFATE 2 MG/ML CARP IV PRN ×2 (09:59→17:06)
--- NOTE | 2016-05-27 10:53 | Progress Note ---
Subjective Date of Service: May 27, 2016. (Kaylie Mancia PA-C) Subjective Pt evaluation today including: conversation w/ patient, physical exam, chart review, lab review, review of inpatient medication list Patient seen and evaluated. High residual noted with PEG feedings and rate has been decreased. Patient is resting in bed without distress. Awakes to verbal stimuli. Complaining of dry mouth. Swabbed mouth. Mucous membranes and tongue extremely dry. Wants water however discussed that fluids are going into the lungs and can't give him something to drink. Updated caregiver at bedside and other caregiver by phone. Discussed attempts to get DME for patient upon D/C home. (Kaylie Mancia PA-C) Problem List Medical Problems: (1) Bilateral pneumonia Status: Acute (2) Bradycardia Status: Acute (3) Cerebral contusion Status: Acute (Kaylie Mancia PA-C) Review of Systems ROS deferred. Denies pain. Only complaint is of dry mouth. (Kaylie Mancia PA-C) Medications Current Inpatient Medications Medications (Trade) Dose Ordered Sig/Rachel Route Start Time Stop Time Status Last Admin Dose Admin Diphenoxylate HCl/ Atropine (Lomotil Tab) 1 tab QID PO 05/22/16 08:00 06/21/16 08:59 05/27/16 09:31 1 TAB Dorzolamide/ Timolol (Cosopt Op Soln) 1 drops BID OPL 05/22/16 08:00 06/21/16 08:59 05/27/16 09:20 1 DROPS Fexofenadine HCl (Scarlett Tab) 180 mg DAILY PO 05/22/16 08:00 06/21/16 07:59 05/27/16 09:30 180 MG Loperamide HCl (Imodium Cap) 2 mg QID PO 05/22/16 08:00 06/21/16 08:59 05/27/16 09:30 2 MG Memantine (Namenda Tab) 10 mg BID PO 05/22/16 08:00 06/24/16 07:59 05/27/16 09:33 10 MG Miconazole Nitrate (Monistat-Derm Crm) 1 appln DAILY EXT 05/22/16 08:00 06/21/16 08:59 05/27/16 09:41 1 APPLN Quetiapine Fumarate (seroQUEL TAB) 25 mg HS PO 05/22/16 21:00 06/21/16 20:59 Future Hold 05/22/16 20:41 25 MG Travoprost (Travatan Z) 1 drops HS OPL 05/22/16 21:00 06/21/16 20:59 05/26/16 20:14 1 DROPS Acetaminophen (Tylenol Tab) 650 mg Q4H PRN PO 05/22/16 02:15 06/21/16 02:14 05/22/16 16:37 650 MG Al Hydrox/Mg Hydrox/Simethicone (Maalox Max Susp) 15 ml Q4H PRN PO 05/22/16 02:15 06/21/16 02:14 Magnesium Hydroxide (Milk Of Magnesia Susp) 30 ml Q6H PRN PO 05/22/16 02:15 06/21/16 02:14 Polyethylene (Miralax Powder Packet) 17 gm DAILY PRN PO 05/22/16 02:15 06/21/16 02:14 Ondansetron HCl 4 mg 4 mg Q6H PRN IV 05/22/16 02:15 06/21/16 02:14 Ceftriaxone Sodium 1 gm/ Dextrose 50 ml @ 100 mls/hr Q24H IV 05/22/16 10:00 05/29/16 09:59 05/27/16 09:57 100 MLS/HR Metronidazole/Prmx (Flagyl / Nss/ Premixed Nss) 100 ml @ 100 mls/hr Q8H IV 05/22/16 12:00 05/29/16 08:44 05/27/16 04:00 100 MLS/HR Enteral Nutritional Formula (Boost Plus Vanilla) 1 can TIDM PO 05/22/16 17:00 06/21/16 16:59 05/23/16 08:00 1 CAN Morphine Sulfate (MoRPHine SULFATE INJ) 2 mg Q2H PRN IV 05/22/16 18:30 06/05/16 18:29 05/27/16 09:59 2 MG Heparin Sodium (Porcine) (Heparin Sq 5000 Unit/0.5ml) 5,000 unit Q12 SQ 05/23/16 21:00 06/22/16 20:59 05/27/16 09:45 5,000 UNIT Nystatin (Mycostatin Susp) 5 ml QID PO 05/23/16 20:30 06/02/16 20:29 05/27/16 09:41 5 ML Hydralazine HCl 10 mg 10 mg Q6 PRN IV. 05/24/16 11:45 06/23/16 11:44 05/25/16 15:29 10 MG Pantoprazole Sodium/Syringe (Protonix Inj/ Syringe) 10 ml @ 5 mls/min DAILY@11 IV 05/26/16 11:00 06/25/16 10:59 05/26/16 10:35 5 MLS/MIN Enteral Nutritional Formula (Fibersource HN) 1,000 ml UD PEG 05/25/16 15:30 06/24/16 15:29 05/26/16 17:38 1,000 ML Miscellaneous Information (Pending Order) 1 ea QS N/A 05/25/16 16:00 06/24/16 15:59 Neomycin/ Polymyxin/ Bacitracin (Neosporin Oint) 1 appln BID EXT 05/25/16 20:00 06/24/16 19:59 05/27/16 09:16 1 APPLN Baclofen (Lioresal Tab) 10 mg HS PEG 05/25/16 21:00 06/24/16 20:59 05/26/16 20:15 10 MG Buspirone HCl (BusPAR TAB) 15 mg TID PEG 05/25/16 20:00 06/24/16 19:59 05/27/16 09:26 15 MG Cholecalciferol (Vitamin D Tab) 1,000 inter.unit DAILY PEG 05/26/16 08:00 06/25/16 07:59 05/27/16 09:27 1,000 INTER.UNIT Donepezil HCl (Aricept Tab) 10 mg HS PEG 05/25/16 21:00 06/24/16 20:59 05/26/16 20:11 10 MG Magnesium Oxide (Mag-Ox Tab) 400 mg DAILY PEG 05/26/16 08:00 06/25/16 07:59 05/27/16 09:27 400 MG Sertraline HCl (Zoloft Tab) 300 mg HS PEG 05/25/16 21:00 06/24/16 20:59 05/26/16 20:15 300 MG Aspirin (Aspirin Chew) 81 mg DAILY PEG 05/26/16 08:00 06/24/16 07:59 05/27/16 09:26 81 MG Aripiprazole (Abilify Tab) 25 mg DAILY PO 05/26/16 08:00 06/25/16 07:59 05/27/16 09:28 25 MG Metoclopramide HCl (Reglan Syrup) 5 mg Q8 PO 05/26/16 22:00 06/25/16 21:59 05/27/16 06:14 5 MG Hydralazine HCl (Apresoline Tab) 10 mg TID PEG 05/26/16 20:00 06/25/16 19:59 05/27/16 09:23 10 MG (Kaylie Mancia PA-C) Objective Vital Signs Date Time Temp Pulse Resp B/P Pulse Ox O2 Delivery O2 Flow Rate FiO2 05/27/16 07:58 36.3 74 16 126/83 93 Room Air 05/27/16 00:00 Room Air 05/26/16 23:30 36.6 81 18 137/90 93 Room Air 05/26/16 16:20 Room Air 05/26/16 16:03 36.7 73 18 132/80 94 Room Air 05/26/16 14:16 36.1 75 14 158/88 93 Room Air (Kaylie Mancia PA-C) Physical Exam General Appearance: no apparent distress, + cachetic Eyes: normal inspection ENT: hearing grossly normal, + pertinent finding (dry mucous membranes) Neck: supple, no JVD, trachea midline Respiratory/Chest: lungs clear, no respiratory distress, no accessory muscle use, + decreased breath sounds Cardiovascular: regular rate, rhythm, no gallop, no murmur Abdomen: normal bowel sounds, non tender, soft, + pertinent finding (PEG tube with surrounding skin without erythema or drainage) Extremities: + swelling (1-2+ pitting edema lower extremities bilat; hands with edema bilat) Neurologic/Psychiatric: alert (Kaylie Mancia PA-C) Laboratory Results Last 24 Hours Test 05/26/16 18:40 05/27/16 05:31 Urine Color YELLOW Urine Appearance CLOUDY Urine pH 6.5 Urine Specific [place] 1.020 Urine Protein 4+ Urine Glucose (UA) 2+ Urine Ketones NEG Urine Occult Blood 2+ Urine Nitrite NEG Urine Bilirubin NEG Urine Urobilinogen NEG Urine Leukocyte Esterase TRACE Urine WBC (Auto) 10-30 /hpf Urine RBC (Auto) 10-30 /hpf Urine Hyaline Casts (Auto) >30 /lpf Urine Epithelial Cells (Auto) >30 /lpf Urine Bacteria (Auto) NEG Urine Renal Epithelial Cells 0-5 /lpf Urine Crystals AMORPHOUS SEDIMENT Urine Pathogenic Casts 1-5 GRANULAR CASTS /lpf Urine Yeast (Auto) Urine Random Creatinine 48.0 mg/dl Urine Random Total Protein 1643.7 mg/dl Urine Protein/Creatinine Ratio 34.2 White Blood Count 13.97 K/uL Red Blood Count 3.81 M/uL Hemoglobin 10.8 g/dL Hematocrit 30.7 % Mean Corpuscular Volume 80.6 fL Mean Corpuscular Hemoglobin 28.3 pg Mean Corpuscular Hemoglobin Concent 35.2 g/dl RDW Standard Deviation 39.4 fL RDW Coefficient of Variation 13.5 % Platelet Count 183 K/uL Mean Platelet Volume 10.6 fL Sodium Level 146 mmol/L Potassium Level 4.0 mmol/L Chloride Level 114 mmol/L Carbon Dioxide Level 20 mmol/L Anion Gap 12.0 mmol/L Blood Urea Nitrogen 125 mg/dl Creatinine 3.30 mg/dl Est Creatinine Clear Calc Drug Dose 19.8 ml/min Estimated GFR () 21.7 Estimated GFR (Non- 18.7 BUN/Creatinine Ratio 37.9 Random Glucose 142 mg/dl Calcium Level 7.5 mg/dl (Kaylie Mancia, PA-C) Assessment and Plan Acute Renal Failure/Anion Gap Metabolic Acidosis - Likely ATN: - Extremely poor oral intake 2-3 weeks STONER HAND - Slow improvement in kidney function with hydration - third spacing present - continue tube feedings with residual assessment - Repeat UA with granular casts - Guardado catheter - strict I&Os - Nephrology following - D/C'd fluids Dysphagia with Recurrent Aspiration and Aspiration PNA: ABX DAY 6 of 10 - Rocephin 1 g daily and Flagyl 500 mg Q8H - Tube feeding rate reduced in setting of high residuals - Reglan 5 mg Q8H - GI following - S/P Peg Tube 05/25/16 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 Current Renal Status: Stable - Hydralazine 10 mg TID 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 Discussed with Kaylie Mancia PAC and agree with findings and plan as documented in the note. Any exceptions or clarifications are listed here: None PT is about his baseline but still with acute renal failure and not tolerating up to goal on tube feeds via peg vss abd is soft non distended with normal bowel sounds and peg site looks good have added metoclopramide and seems to tolerate tube feeds, plan would be to taper metoclopramide dose slowly over time continue to follow DR Lopez lead in treating renal failure Documented By: Nikko Chen (Nikko Chen M.D.)
[2016-05-27 11:20] VITALS: BP 132/85; PULSE 67; TEMP 36.5; O2SAT 97
[2016-05-27] MEDS: PANTOprazole INJ 40 MG in SYRINGE 0 ML IV SCH (11:41)
[2016-05-27] MEDS ORDERED: NURSING VERBAL MED ORDER ONE (13:30)
[2016-05-27 15:59] VITALS: BP 129/77; PULSE 64; TEMP 36.4; O2SAT 93
[2016-05-27] MEDS: TUBE FEEDING WATER FLUSH PEG SCH (17:41)
[2016-05-27] MEDS ORDERED: TUBE FEEDING WATER FLUSH NG SCH (18:00)
[2016-05-27] MEDS ORDERED: BOOST PLUS VANILLA PO SCH ×2 (20:00)
[2016-05-27 20:15] VITALS: BP 144/81; PULSE 73
[2016-05-27] MEDS: SERTRALINE HCL 100 MG TAB PEG SCH (20:22)
[2016-05-27] MEDS: TRAVOPROST Z 0.004% OPH SOLN 2.5 ML BTL OPL SCH (20:22)
[2016-05-27] MEDS: BACLOFEN 10 MG TAB PEG SCH (20:22)
[2016-05-27] MEDS: DONEPEZIL HCL 10 MG TAB PEG SCH (20:22)
[2016-05-27] MEDS: FIBERSOURCE HN 1000ML BAG PEG SCH ×2 (21:40)
[2016-05-27 23:42] VITALS: BP 124/79; PULSE 73; TEMP 36.3; O2SAT 96
[2016-05-28] MEDS: TUBE FEEDING WATER FLUSH PEG SCH ×4 (00:03→17:23)
[2016-05-28] MEDS: METRONIDAZOLE / NSS 500 MG in PREMIXED NSS 100 ML IV SCH ×3 (04:05→20:02)
[2016-05-28] MEDS: METOCLOPRAMIDE HCL 5 MG/5 ML UDP PO SCH ×2 (05:39→15:12)
[2016-05-28 07:22] VITALS: BP 127/74; PULSE 72; TEMP 36.2; O2SAT 93
[2016-05-28] MEDS: NEOMYCIN/POLYMYX/BACITR OINT 15 GM TUBE EXT SCH ×2 (08:15→20:12)
[2016-05-28] MEDS: MEMANTINE 10 MG TAB PO SCH ×2 (08:15→20:15)
[2016-05-28] MEDS: NYSTATIN SUSP 500,000 U/5 ML UDC PO SCH ×4 (08:15→20:13)
[2016-05-28] MEDS: BusPIRone 15 MG TAB PEG SCH (08:16)
[2016-05-28] MEDS: DIPHENOXYLATE/ATROPINE 2.5/0.025MG TAB PO SCH ×4 (08:16→20:13)
[2016-05-28] MEDS: ARIPIprazole TAB 10 MG TAB PO SCH (08:16)
[2016-05-28] MEDS: FEXOFENADINE HCL 180 MG TAB PO SCH (08:16)
[2016-05-28] MEDS: MAGNESIUM OXIDE 400 MG TAB PEG SCH (08:16)
[2016-05-28] MEDS: CHOLECALCIFEROL 1000 INTER.UNIT TAB PEG SCH (08:16)
[2016-05-28] MEDS: LOPERAMIDE HCL 2 MG CAP PO SCH ×4 (08:16→20:13)
[2016-05-28] MEDS: MICONAZOLE NITRATE 2% CR 30 GM TUBE EXT SCH (08:17)
[2016-05-28] MEDS: DORZOLAMIDE/TIMOLOL 22.3/6.8MG/ML 10 ML BTL OPL SCH ×2 (08:17→20:12)
[2016-05-28] MEDS: HydrALAZINE 10 MG TAB PEG SCH ×3 (08:17→20:14)
[2016-05-28] MEDS: HEPARIN SOD 5000 UNIT/0.5 ML CARP SQ SCH ×2 (08:19→20:22)
[2016-05-28] MEDS: ASPIRIN 81 MG CHEW PEG SCH (08:20)
[2016-05-28] MEDS: MoRPHine SULFATE 2 MG/ML CARP IV PRN (09:11)
[2016-05-28 09:34] LABS: BUN/CREATININE RATIO 34.6 (10-20); CALCIUM 7.7 mg/dl (8.5-10.1); CREATININE 3.6 mg/dl (0.60-1.40); POTASSIUM 4.4 mmol/L (3.5-5.1)
[2016-05-28] MEDS: CEFTRIAXONE SOD INJ 1 GM in DEXTROSE 5% ADD-VANTAGE 50ML 50 ML IV SCH (10:27)
--- NOTE | 2016-05-28 10:59 | Nephrology Progress Note ---
Nephrology Progress Note Date of Service May 28, 2016. Chief Complaint Evaluation of JAZMINE, metabolic acidosis and 3rd spacing of fluid Subjective Mr. Garrett was seen & examined in his hospital room this morning. He is awake & alert. He remains nonverbal. Patient has received ~ 13 L IV hydration since admission. He has developed dependent edema. Jason catheter is in place. Urine microscopy shows granular casts c/w ATN. Patient is now nonoliguric. Review of Systems Unable to obtain. Patient is nonverbal. Vital Signs Last 8 Hrs Date Time Temp Pulse Resp B/P Pulse Ox O2 Delivery O2 Flow Rate FiO2 05/28/16 08:05 Room Air 05/28/16 07:22 36.2 72 20 127/74 93 Room Air I & O 24-Hour Column 05/28/16 07:59 Intake Total 2009 ml Output Total 800 ml Balance 1209 ml Last Recorded Weight Weight (Kilograms): 65.000 Physical Exam General Appearance: + thin (frail, chronically ill appearing) Head: atraumatic (temporal muscle wasting) Eyes: + pertinent finding (dilated left pupil) Neck: no adenopathy Respiratory/Chest: lungs clear, no respiratory distress Cardiovascular: regular rate, rhythm Abdomen/GI: non tender (hypoactive bowel sounds), + pertinent finding (PEG tube in place) Genitourinary - Male: + pertinent finding (jason catheter draining clear yellow urine) Extremities/Musculoskelatal: + pertinent finding (1+ dependent edema of the arms and legs) Neurologic/Psych: alert, + pertinent finding (nonverbal) Family History Heart disease Brother is ceramics test engineer Social History Smoking Status: Former smoker Drug Use: none Marital Status: single Housing Status: lives alone Occupation: retired Retired. Lives at home with two round the clock care givers. History of tobacco use. Laboratory Results Past 24 Hours 05/28/16 09:00 Test 05/27/16 20:25 05/28/16 00:00 05/28/16 09:00 Bedside Glucose 119 mg/dl (70-99) 130 mg/dl (70-99) Anion Gap 11.0 mmol/L (3-11) Est Creatinine Clear Calc Drug Dose 19.1 ml/min Estimated GFR () 19.5 Estimated GFR (Non- 16.8 BUN/Creatinine Ratio 34.6 (10-20) Calcium Level 7.7 mg/dl (8.5-10.1) Allergies Coded Allergies: Penicillins (Verified Allergy, Unknown, unknown, Per Erik Chang: pt rec'd ancef in OR w/o rxn, 01/12/16) pt/spouse Medications Current Inpatient Medications Medications (Trade) Dose Ordered Sig/Rachel Route Start Time Stop Time Status Last Admin Dose Admin Diphenoxylate HCl/ Atropine (Lomotil Tab) 1 tab QID PO 05/22/16 08:00 06/21/16 08:59 05/28/16 08:16 1 TAB Dorzolamide/ Timolol (Cosopt Op Soln) 1 drops BID OPL 05/22/16 08:00 06/21/16 08:59 05/28/16 08:17 1 DROPS Fexofenadine HCl (Scarlett Tab) 180 mg DAILY PO 05/22/16 08:00 06/21/16 07:59 05/28/16 08:16 180 MG Loperamide HCl (Imodium Cap) 2 mg QID PO 05/22/16 08:00 06/21/16 08:59 05/28/16 08:16 2 MG Memantine (Namenda Tab) 10 mg BID PO 05/22/16 08:00 06/24/16 07:59 05/28/16 08:15 10 MG Miconazole Nitrate (Monistat-Derm Crm) 1 appln DAILY EXT 05/22/16 08:00 06/21/16 08:59 05/28/16 08:17 1 APPLN Quetiapine Fumarate (seroQUEL TAB) 25 mg HS PO 05/22/16 21:00 06/21/16 20:59 Future Hold 05/22/16 20:41 25 MG Travoprost (Travatan Z) 1 drops HS OPL 05/22/16 21:00 06/21/16 20:59 05/27/16 20:22 1 DROPS Acetaminophen (Tylenol Tab) 650 mg Q4H PRN PO 05/22/16 02:15 06/21/16 02:14 05/22/16 16:37 650 MG Al Hydrox/Mg Hydrox/Simethicone (Maalox Max Susp) 15 ml Q4H PRN PO 05/22/16 02:15 06/21/16 02:14 Magnesium Hydroxide (Milk Of Magnesia Susp) 30 ml Q6H PRN PO 05/22/16 02:15 06/21/16 02:14 Polyethylene (Miralax Powder Packet) 17 gm DAILY PRN PO 05/22/16 02:15 06/21/16 02:14 Ondansetron HCl 4 mg 4 mg Q6H PRN IV 05/22/16 02:15 06/21/16 02:14 Ceftriaxone Sodium 1 gm/ Dextrose 50 ml @ 100 mls/hr Q24H IV 05/22/16 10:00 05/29/16 09:59 05/28/16 10:27 100 MLS/HR Metronidazole/Prmx (Flagyl / Nss/ Premixed Nss) 100 ml @ 100 mls/hr Q8H IV 05/22/16 12:00 05/29/16 08:44 05/28/16 04:05 100 MLS/HR Morphine Sulfate (MoRPHine SULFATE INJ) 2 mg Q2H PRN IV 05/22/16 18:30 06/05/16 18:29 05/28/16 09:11 2 MG Heparin Sodium (Porcine) (Heparin Sq 5000 Unit/0.5ml) 5,000 unit Q12 SQ 05/23/16 21:00 06/22/16 20:59 05/28/16 08:19 5,000 UNIT Nystatin (Mycostatin Susp) 5 ml QID PO 05/23/16 20:30 06/02/16 20:29 05/28/16 08:15 5 ML Hydralazine HCl 10 mg 10 mg Q6 PRN IV. 05/24/16 11:45 06/23/16 11:44 05/25/16 15:29 10 MG Pantoprazole Sodium/Syringe (Protonix Inj/ Syringe) 10 ml @ 5 mls/min DAILY@11 IV 05/26/16 11:00 06/25/16 10:59 05/27/16 11:41 5 MLS/MIN Neomycin/ Polymyxin/ Bacitracin (Neosporin Oint) 1 appln BID EXT 05/25/16 20:00 06/24/16 19:59 05/28/16 08:15 1 APPLN Baclofen (Lioresal Tab) 10 mg HS PEG 05/25/16 21:00 06/24/16 20:59 05/27/16 20:22 10 MG Buspirone HCl (BusPAR TAB) 15 mg TID PEG 05/25/16 20:00 06/24/16 19:59 05/28/16 08:16 15 MG Cholecalciferol (Vitamin D Tab) 1,000 inter.unit DAILY PEG 05/26/16 08:00 06/25/16 07:59 05/28/16 08:16 1,000 INTER.UNIT Donepezil HCl (Aricept Tab) 10 mg HS PEG 05/25/16 21:00 06/24/16 20:59 05/27/16 20:22 10 MG Magnesium Oxide (Mag-Ox Tab) 400 mg DAILY PEG 05/26/16 08:00 06/25/16 07:59 05/28/16 08:16 400 MG Sertraline HCl (Zoloft Tab) 300 mg HS PEG 05/25/16 21:00 06/24/16 20:59 05/27/16 20:22 300 MG Aspirin (Aspirin Chew) 81 mg DAILY PEG 05/26/16 08:00 06/24/16 07:59 05/28/16 08:20 81 MG Aripiprazole (Abilify Tab) 25 mg DAILY PO 05/26/16 08:00 06/25/16 07:59 05/28/16 08:16 25 MG Metoclopramide HCl (Reglan Syrup) 5 mg Q8 PO 05/26/16 22:00 06/25/16 21:59 05/28/16 05:39 5 MG Hydralazine HCl (Apresoline Tab) 10 mg TID PEG 05/26/16 20:00 06/25/16 19:59 05/28/16 08:17 10 MG Enteral Nutritional Formula (Fibersource HN) 1,000 ml UD PEG 05/27/16 15:00 06/26/16 14:59 05/27/16 21:40 1,000 ML Sterile Water (Tube Feeding Water Flush) 250 ea Q6 PEG 05/27/16 18:00 06/26/16 17:59 05/28/16 05:39 250 EA Impression (1) ARF (acute renal failure) (2) Metabolic acidosis (3) Dehydration (4) Hypoalbuminemia (5) Peripheral edema Chronically ill middle age male with [place]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 He was admitted for evaluation of dehydration, JAZMINE, metabolic acidosis and hypoalbuminemia. He has 3rd spacing of fluid into the dependent areas of his arms and legs. Patient had PEG placed 05/25/16. Abdominal CT was negative for obstruction. FeNa was < 0.5%. Urine sediment shows granular casts c/w ATN. Patient has high AG metabolic acidosis on the basis of JAZMINE. Recommendations ACUTE KIDNEY INJURY: -- Baseline creatinine 0.7 04/16 -- Abdominal CT 05/22/16: No renal obstruction -- Admission FeNa was < 0.5% -- Urine sediment shows granular casts c/w ATN -- Hold IVF at this time due to ATN and progressive peripheral edema -- Creatinine remains elevated but patient is now nonoliguric. METABOLIC ACIDOSIS: -- High AGA due to JAZMINE -- Acidemia improved with NaHCO3 therapy. Target serum HCO3 20 - 22 -- Will hold IVF at this time due to ATN and progressive peripheral edema MALNUTRITION: -- Serum albumin is low. Patient has dependent edema -- Agree with starting enteral feeding via PEG -- Patient is receiving free water via PEG (1 L / day)
[2016-05-28] MEDS: PANTOprazole INJ 40 MG in SYRINGE 0 ML IV SCH (11:08)
--- NOTE | 2016-05-28 12:04 | Progress Note ---
Subjective Date of Service: May 28, 2016. (Kaylie Mancia PA-C) Subjective Pt evaluation today including: conversation w/ patient, conversation w/ family (caregiver), physical exam, lab review, review of inpatient medication list Voiding: jason catheter in place Patient seen and evaluated. No acute events overnight. Patient is lethargic however just received pain medication. Easily awakens to verbal stimuli but ROS limited. Residual gastric contents have been less with reduced feeding rate. Extremity edema remains significant. Kidney function increased since D/C of fluids. Jason catheter placed draining dark urine with noted improvement in output Denies pain and some improvement with oral dryness. (Kaylie Mancia PA-C) Problem List Medical Problems: (1) Bilateral pneumonia Status: Acute (2) Bradycardia Status: Acute (3) Cerebral contusion Status: Acute (Kaylie Mancia PA-C) Review of Systems ROS deferred 2/2 lethargy. See HPI. (Kaylie Mancia PA-C) Medications Current Inpatient Medications Medications (Trade) Dose Ordered Sig/Rachel Route Start Time Stop Time Status Last Admin Dose Admin Diphenoxylate HCl/ Atropine (Lomotil Tab) 1 tab QID PO 05/22/16 08:00 06/21/16 08:59 05/28/16 08:16 1 TAB Dorzolamide/ Timolol (Cosopt Op Soln) 1 drops BID OPL 05/22/16 08:00 06/21/16 08:59 05/28/16 08:17 1 DROPS Fexofenadine HCl (Scarlett Tab) 180 mg DAILY PO 05/22/16 08:00 06/21/16 07:59 05/28/16 08:16 180 MG Loperamide HCl (Imodium Cap) 2 mg QID PO 05/22/16 08:00 06/21/16 08:59 05/28/16 08:16 2 MG Memantine (Namenda Tab) 10 mg BID PO 05/22/16 08:00 06/24/16 07:59 05/28/16 08:15 10 MG Miconazole Nitrate (Monistat-Derm Crm) 1 appln DAILY EXT 05/22/16 08:00 06/21/16 08:59 05/28/16 08:17 1 APPLN Quetiapine Fumarate (seroQUEL TAB) 25 mg HS PO 05/22/16 21:00 06/21/16 20:59 Future Hold 05/22/16 20:41 25 MG Travoprost (Travatan Z) 1 drops HS OPL 05/22/16 21:00 06/21/16 20:59 05/27/16 20:22 1 DROPS Acetaminophen (Tylenol Tab) 650 mg Q4H PRN PO 05/22/16 02:15 06/21/16 02:14 05/22/16 16:37 650 MG Al Hydrox/Mg Hydrox/Simethicone (Maalox Max Susp) 15 ml Q4H PRN PO 05/22/16 02:15 06/21/16 02:14 Magnesium Hydroxide (Milk Of Magnesia Susp) 30 ml Q6H PRN PO 05/22/16 02:15 06/21/16 02:14 Polyethylene (Miralax Powder Packet) 17 gm DAILY PRN PO 05/22/16 02:15 06/21/16 02:14 Ondansetron HCl 4 mg 4 mg Q6H PRN IV 05/22/16 02:15 06/21/16 02:14 Ceftriaxone Sodium 1 gm/ Dextrose 50 ml @ 100 mls/hr Q24H IV 05/22/16 10:00 05/29/16 09:59 05/27/16 09:57 100 MLS/HR Metronidazole/Prmx (Flagyl / Nss/ Premixed Nss) 100 ml @ 100 mls/hr Q8H IV 05/22/16 12:00 05/29/16 08:44 05/28/16 04:05 100 MLS/HR Morphine Sulfate (MoRPHine SULFATE INJ) 2 mg Q2H PRN IV 05/22/16 18:30 06/05/16 18:29 05/28/16 09:11 2 MG Heparin Sodium (Porcine) (Heparin Sq 5000 Unit/0.5ml) 5,000 unit Q12 SQ 05/23/16 21:00 06/22/16 20:59 05/28/16 08:19 5,000 UNIT Nystatin (Mycostatin Susp) 5 ml QID PO 05/23/16 20:30 06/02/16 20:29 05/28/16 08:15 5 ML Hydralazine HCl 10 mg 10 mg Q6 PRN IV. 05/24/16 11:45 06/23/16 11:44 05/25/16 15:29 10 MG Pantoprazole Sodium/Syringe (Protonix Inj/ Syringe) 10 ml @ 5 mls/min DAILY@11 IV 05/26/16 11:00 06/25/16 10:59 05/27/16 11:41 5 MLS/MIN Neomycin/ Polymyxin/ Bacitracin (Neosporin Oint) 1 appln BID EXT 05/25/16 20:00 06/24/16 19:59 05/28/16 08:15 1 APPLN Baclofen (Lioresal Tab) 10 mg HS PEG 05/25/16 21:00 06/24/16 20:59 05/27/16 20:22 10 MG Buspirone HCl (BusPAR TAB) 15 mg TID PEG 05/25/16 20:00 06/24/16 19:59 05/28/16 08:16 15 MG Cholecalciferol (Vitamin D Tab) 1,000 inter.unit DAILY PEG 05/26/16 08:00 06/25/16 07:59 05/28/16 08:16 1,000 INTER.UNIT Donepezil HCl (Aricept Tab) 10 mg HS PEG 05/25/16 21:00 06/24/16 20:59 05/27/16 20:22 10 MG Magnesium Oxide (Mag-Ox Tab) 400 mg DAILY PEG 05/26/16 08:00 06/25/16 07:59 05/28/16 08:16 400 MG Sertraline HCl (Zoloft Tab) 300 mg HS PEG 05/25/16 21:00 06/24/16 20:59 05/27/16 20:22 300 MG Aspirin (Aspirin Chew) 81 mg DAILY PEG 05/26/16 08:00 06/24/16 07:59 05/28/16 08:20 81 MG Aripiprazole (Abilify Tab) 25 mg DAILY PO 05/26/16 08:00 06/25/16 07:59 05/28/16 08:16 25 MG Metoclopramide HCl (Reglan Syrup) 5 mg Q8 PO 05/26/16 22:00 06/25/16 21:59 05/28/16 05:39 5 MG Hydralazine HCl (Apresoline Tab) 10 mg TID PEG 05/26/16 20:00 06/25/16 19:59 05/28/16 08:17 10 MG Enteral Nutritional Formula (Fibersource HN) 1,000 ml UD PEG 05/27/16 15:00 06/26/16 14:59 05/27/16 21:40 1,000 ML Sterile Water (Tube Feeding Water Flush) 250 ea Q6 PEG 05/27/16 18:00 06/26/16 17:59 05/28/16 05:39 250 EA (Kaylie Mancia PA-C) Objective Vital Signs Date Time Temp Pulse Resp B/P Pulse Ox O2 Delivery O2 Flow Rate FiO2 05/28/16 08:05 Room Air 05/28/16 07:22 36.2 72 20 127/74 93 Room Air 05/28/16 00:25 Room Air 05/27/16 23:42 36.3 73 18 124/79 96 Room Air 05/27/16 20:15 73 144/81 05/27/16 20:10 Room Air 05/27/16 16:00 Room Air 05/27/16 15:59 36.4 64 18 129/77 93 Room Air 05/27/16 11:20 36.5 67 12 132/85 97 Room Air (Kaylie Mancia, PA-C) Physical Exam General Appearance: no apparent distress, + cachetic Eyes: sclerae normal ENT: hearing grossly normal, + pertinent finding (mucous membranes dry) Neck: supple, no JVD, trachea midline Respiratory/Chest: no respiratory distress, no accessory muscle use, + decreased breath sounds Cardiovascular: regular rate, rhythm, no gallop, no murmur Abdomen: normal bowel sounds, non tender, soft, + pertinent finding (PEG tube with dressing clean/dry/intact; surrounding skin without erythema or drainage) Extremities: + swelling (2+ pitting edema bilateral lower extremities; skin taut and shiny) Neurologic/Psychiatric: + pertinent finding (lethargic) Skin: normal color, warm/dry, no rash (Kaylie Mancia, PA-C) Laboratory Results Last 24 Hours Test 05/27/16 20:25 05/28/16 00:00 05/28/16 09:00 Bedside Glucose 119 mg/dl 130 mg/dl Sodium Level 145 mmol/L Potassium Level 4.4 mmol/L Chloride Level 112 mmol/L Carbon Dioxide Level 22 mmol/L Anion Gap 11.0 mmol/L Blood Urea Nitrogen 125 mg/dl Creatinine 3.60 mg/dl Est Creatinine Clear Calc Drug Dose 19.1 ml/min Estimated GFR () 19.5 Estimated GFR (Non- 16.8 BUN/Creatinine Ratio 34.6 Random Glucose 129 mg/dl Calcium Level 7.7 mg/dl (Kaylie Mancia PA-C) Assessment and Plan Acute Renal Failure/Anion Gap Metabolic Acidosis - Likely ATN: - Extremely poor oral intake 2-3 weeks [facility] - Cr with initial marked improvement but has been largely unchanged. Labs today reveal Cr bump to 3.6 -- Medications reviewed for nephrotoxic agents - will D/C Baclofen as it is not recommended with kidney disease and will reduce Buspar to 5 mg TID - Metabolic acidosis improved after bicarb administration - IVFs D/C'd with free water initiated with feedings - Jason catheter - strict I&Os - urine output with improvement - Nephrology following Dysphagia with Recurrent Aspiration and Aspiration PNA S/P Peg Tube (05/25): ABX DAY 7 of 10 - Rocephin 1 g daily and Flagyl 500 mg Q8H - Residuals improved with feedings - rate currently at 65 mL/hr can adjust as tolerated - Reglan 5 mg Q8H 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 Current Renal Status: Stable - Hydralazine 10 mg TID 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: - Continue home meds of Abilify, Buspar, Aricept, Namenda, Seroquel, and Zoloft DVT Prophylaxis: - Heparin 5000 units Q12H Code Status: - FULL - NO MECHANICAL VENTILATION Disposition: - DME list given to case management - will provide scripts for items - D/C uncertain at this time - will need to establish new kidney function baseline Continued [facility] stay due to: inadequate po fluid intake, multiple IV medications needed, other (pneumonia, severe dysphagia, NPO status) Discharge planning: home with home health (Kaylie Mancia PA-C) PA Physician Supervision Note: I interviewed and examined the patient. Discussed with Kaylie Mancia PAC and agree with findings and plan as documented in the note. Any exceptions or clarifications are listed here: None This pt is improving clinically, his renal numbers have a slight backslide but have oversight with Dr August maldonado car is reg, lungs diminished at bases, abd is soft mucus membranes are less dry asses, Luebbering chorea, dysphagia, now with PEG feeding, ATN with slow to improved renal numbers maybe new baseline continue supportive care, and follow nephrology recommendations, will see if Cr increases again 05/29 Documented By: Nikko Chen (Nikko Chen M.D.)
[2016-05-28] MEDS: FIBERSOURCE HN 1000ML BAG PEG SCH ×2 (15:12)
[2016-05-28 15:39] VITALS: BP 146/73; PULSE 75; TEMP 36.4; O2SAT 93
[2016-05-28 16:00] VITALS: O2SAT 93
[2016-05-28] MEDS ORDERED: NURSING VERBAL MED ORDER ONE ×2 (19:15→21:00)
[2016-05-28 20:11] VITALS: BP 118/73; PULSE 70; O2SAT 97
[2016-05-28] MEDS: TRAVOPROST Z 0.004% OPH SOLN 2.5 ML BTL OPL SCH (20:14)
[2016-05-28] MEDS: DONEPEZIL HCL 10 MG TAB PEG SCH (20:16)
[2016-05-28] MEDS ORDERED: SERTRALINE HCL 100 MG TAB PEG SCH (21:00)
[2016-05-28] MEDS ORDERED: METOCLOPRAMIDE HCL 5 MG/5 ML UDP PEG SCH (22:00)
[2016-05-28] MEDS: METOCLOPRAMIDE HCL 10 MG/10 ML UDC PEG SCH (22:11)
[2016-05-28 23:52] VITALS: BP 133/77; TEMP 36.3; O2SAT 90
[2016-05-29] MEDS: TUBE FEEDING WATER FLUSH PEG SCH ×4 (00:12→17:42)
[2016-05-29 00:58] VITALS: O2SAT 93
[2016-05-29] MEDS: METRONIDAZOLE / NSS 500 MG in PREMIXED NSS 100 ML IV SCH (03:18)
[2016-05-29] MEDS: METOCLOPRAMIDE HCL 10 MG/10 ML UDC PEG SCH ×2 (03:18→08:40)
[2016-05-29 06:17] LABS: HEMATOCRIT 29.8 % (42-52); MEAN CORPUSCULAR HEMOGLOBIN 28.4 pg (25-34); MEAN CORPUSCULAR HGB CONC 34.2 g/dl (32-36); MEAN PLATELET VOLUME 10.6 fL (7.4-10.4); PLATELET COUNT 170 K/uL (130-400); RED BLOOD COUNT 3.59 M/uL (4.7-6.1); WHITE BLOOD COUNT 10.63 K/uL (4.8-10.8)
[2016-05-29 06:56] LABS: BUN/CREATININE RATIO 34.9 (10-20); CALCIUM 7.5 mg/dl (8.5-10.1); CREATININE 3.6 mg/dl (0.60-1.40); POTASSIUM 4.4 mmol/L (3.5-5.1)
[2016-05-29 06:59] VITALS: BP 119/75; PULSE 61; TEMP 36.5; O2SAT 97
[2016-05-29 08:30] VITALS: O2SAT 97
[2016-05-29] MEDS: DIPHENOXYLATE/ATROPINE 2.5/0.025MG TAB PO SCH ×4 (08:41→19:58)
[2016-05-29] MEDS: LOPERAMIDE HCL 2 MG CAP PO SCH ×4 (08:41→19:59)
[2016-05-29] MEDS: NYSTATIN SUSP 500,000 U/5 ML UDC PO SCH ×4 (08:41→20:00)
[2016-05-29] MEDS: FEXOFENADINE HCL 180 MG TAB PO SCH (08:42)
[2016-05-29] MEDS: HydrALAZINE 10 MG TAB PEG SCH ×3 (08:42→19:57)
[2016-05-29] MEDS: NEOMYCIN/POLYMYX/BACITR OINT 15 GM TUBE EXT SCH ×2 (08:43→19:56)
[2016-05-29] MEDS: MICONAZOLE NITRATE 2% CR 30 GM TUBE EXT SCH (08:43)
[2016-05-29] MEDS: CHOLECALCIFEROL 1000 INTER.UNIT TAB PEG SCH (08:44)
[2016-05-29] MEDS: DORZOLAMIDE/TIMOLOL 22.3/6.8MG/ML 10 ML BTL OPL SCH ×2 (08:44→19:56)
[2016-05-29] MEDS: MEMANTINE 10 MG TAB PO SCH ×2 (08:44→20:00)
[2016-05-29] MEDS: ARIPIprazole TAB 10 MG TAB PO SCH (08:45)
[2016-05-29] MEDS: ASPIRIN 81 MG CHEW PEG SCH (08:47)
--- NOTE | 2016-05-29 10:50 | Nephrology Progress Note ---
Nephrology Progress Note Date of Service May 29, 2016. Chief Complaint Evaluation of JAZMINE, metabolic acidosis and 3rd spacing of fluid Subjective Mr. Garrett was seen & examined in his hospital room this morning. 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 Mr. Garrett is awake & alert. He remains nonverbal. Patient has received ~ 13 L IV hydration since admission. He has developed dependent edema. Guardado catheter is in place. Urine microscopy shows granular casts c/w ATN. Patient is now nonoliguric. Review of Systems Unable to obtain. Patient is nonverbal Vital Signs Last 8 Hrs Date Time Temp Pulse Resp B/P Pulse Ox O2 Delivery O2 Flow Rate FiO2 05/29/16 06:59 36.5 61 18 119/75 97 Room Air I & O 24-Hour Column 05/29/16 07:59 Intake Total 1883 ml Output Total 700 ml Balance 1183 ml Last Recorded Weight Weight (Kilograms): 71.300 Physical Exam General Appearance: + thin (frail, chronically ill appearing) Head: atraumatic Eyes: EOMI, + pertinent finding (dilated left pupil) Neck: no adenopathy Respiratory/Chest: lungs clear, no respiratory distress Cardiovascular: regular rate, rhythm Abdomen/GI: soft, + pertinent finding (PEG tube in place) Extremities/Musculoskelatal: + swelling (2+ dependent edema) Neurologic/Psych: + pertinent finding (opens eyes to voice. Nonverbal) Family History Heart disease Brother is tunnel heading inspector Social History Smoking Status: Former smoker Drug Use: none Marital Status: single Housing Status: lives alone Occupation: retired Retired. Lives at home with two round the clock care givers. History of tobacco use. Laboratory Results Past 24 Hours 05/29/16 05:40 05/29/16 05:40 Test 05/28/16 18:17 05/29/16 00:04 05/29/16 05:40 05/29/16 06:08 Bedside Glucose 132 mg/dl (70-99) 87 mg/dl (70-99) 150 mg/dl (70-99) Red Blood Count 3.59 M/uL (4.7-6.1) Mean Corpuscular Volume 83.0 fL (80-100) Mean Corpuscular Hemoglobin 28.4 pg (25-34) Mean Corpuscular Hemoglobin Concent 34.2 g/dl (32-36) RDW Standard Deviation 41.7 fL (36.4-46.3) RDW Coefficient of Variation 13.6 % (11.5-14.5) Mean Platelet Volume 10.6 fL (7.4-10.4) Anion Gap 11.0 mmol/L (3-11) Est Creatinine Clear Calc Drug Dose 20.9 ml/min Estimated GFR () 19.5 Estimated GFR (Non- 16.8 BUN/Creatinine Ratio 34.9 (10-20) Calcium Level 7.5 mg/dl (8.5-10.1) Allergies Coded Allergies: Penicillins (Verified Allergy, Unknown, unknown, Per Erik Chang: pt rec'd ancef in OR w/o rxn, 01/12/16) pt/spouse Medications Current Inpatient Medications Medications (Trade) Dose Ordered Sig/Rachel Route Start Time Stop Time Status Last Admin Dose Admin Diphenoxylate HCl/ Atropine (Lomotil Tab) 1 tab QID PO 05/22/16 08:00 06/21/16 08:59 05/29/16 08:41 1 TAB Dorzolamide/ Timolol (Cosopt Op Soln) 1 drops BID OPL 05/22/16 08:00 06/21/16 08:59 05/29/16 08:44 1 DROPS Fexofenadine HCl (Scarlett Tab) 180 mg DAILY PO 05/22/16 08:00 06/21/16 07:59 05/29/16 08:42 180 MG Loperamide HCl (Imodium Cap) 2 mg QID PO 05/22/16 08:00 06/21/16 08:59 05/29/16 08:41 2 MG Memantine (Namenda Tab) 10 mg BID PO 05/22/16 08:00 06/24/16 07:59 05/29/16 08:44 10 MG Miconazole Nitrate (Monistat-Derm Crm) 1 appln DAILY EXT 05/22/16 08:00 06/21/16 08:59 05/29/16 08:43 1 APPLN Travoprost (Travatan Z) 1 drops HS OPL 05/22/16 21:00 06/21/16 20:59 05/28/16 20:14 1 DROPS Acetaminophen (Tylenol Tab) 650 mg Q4H PRN PO 05/22/16 02:15 06/21/16 02:14 05/22/16 16:37 650 MG Al Hydrox/Mg Hydrox/Simethicone (Maalox Max Susp) 15 ml Q4H PRN PO 05/22/16 02:15 06/21/16 02:14 Polyethylene (Miralax Powder Packet) 17 gm DAILY PRN PO 05/22/16 02:15 06/21/16 02:14 Ondansetron HCl (Zofran Inj) 4 mg Q6H PRN IV 05/22/16 02:15 06/21/16 02:14 Morphine Sulfate (MoRPHine SULFATE INJ) 2 mg Q2H PRN IV 05/22/16 18:30 06/05/16 18:29 05/28/16 09:11 2 MG Heparin Sodium (Porcine) (Heparin Sq 5000 Unit/0.5ml) 5,000 unit Q12 SQ 05/23/16 21:00 06/22/16 20:59 05/28/16 20:22 5,000 UNIT Nystatin (Mycostatin Susp) 5 ml QID PO 05/23/16 20:30 06/02/16 20:29 05/29/16 08:41 5 ML Hydralazine HCl 10 mg 10 mg Q6 PRN IV. 05/24/16 11:45 06/23/16 11:44 05/25/16 15:29 10 MG Pantoprazole Sodium/Syringe (Protonix Inj/ Syringe) 10 ml @ 5 mls/min DAILY@11 IV 05/26/16 11:00 06/25/16 10:59 05/28/16 11:08 5 MLS/MIN Neomycin/ Polymyxin/ Bacitracin (Neosporin Oint) 1 appln BID EXT 05/25/16 20:00 06/24/16 19:59 05/29/16 08:43 1 APPLN Cholecalciferol (Vitamin D Tab) 1,000 inter.unit DAILY PEG 05/26/16 08:00 06/25/16 07:59 05/29/16 08:44 1,000 INTER.UNIT Donepezil HCl (Aricept Tab) 10 mg HS PEG 05/25/16 21:00 06/24/16 20:59 05/28/16 20:16 10 MG Aspirin (Aspirin Chew) 81 mg DAILY PEG 05/26/16 08:00 06/24/16 07:59 05/29/16 08:47 81 MG Aripiprazole (Abilify Tab) 25 mg DAILY PO 05/26/16 08:00 06/25/16 07:59 05/29/16 08:45 25 MG Hydralazine HCl (Apresoline Tab) 10 mg TID PEG 05/26/16 20:00 06/25/16 19:59 05/29/16 08:42 10 MG Enteral Nutritional Formula (Fibersource HN) 1,000 ml UD PEG 05/27/16 15:00 06/26/16 14:59 05/28/16 15:12 1,000 ML Sterile Water (Tube Feeding Water Flush) 250 ea Q6 PEG 05/27/16 18:00 06/26/16 17:59 05/29/16 06:17 250 EA Metoclopramide HCl (Reglan Syrup) 2.5 mg Q6H PEG 05/28/16 21:30 06/27/16 21:29 05/29/16 08:40 2.5 MG Impression (1) ARF (acute renal failure) (2) Metabolic acidosis (3) Dehydration (4) Hypoalbuminemia (5) Peripheral edema 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 He was admitted for evaluation of dehydration, JAZMINE, metabolic acidosis and hypoalbuminemia. He has 3rd spacing of fluid into the dependent areas of his arms and legs. Patient had PEG placed 05/25/16. Abdominal CT was negative for obstruction. FeNa was < 0.5%. Urine sediment shows granular casts c/w ATN. Patient has high AG metabolic acidosis on the basis of JAZMINE. Recommendations ACUTE KIDNEY INJURY: -- Baseline creatinine 0.7 04/16 -- Abdominal CT 05/22/16: No renal obstruction -- Admission FeNa was < 0.5% -- Urine sediment shows granular casts c/w ATN -- Hold IVF at this time due to ATN and progressive peripheral edema -- Creatinine remains elevated but patient is now nonoliguric. METABOLIC ACIDOSIS: -- High AGA due to JAZMINE -- Acidemia improved with NaHCO3 therapy. Target serum HCO3 20 - 22 -- Will hold IVF at this time due to ATN and progressive peripheral edema MALNUTRITION: -- Serum albumin is low. Patient has dependent edema -- Agree with starting enteral feeding via PEG -- Patient is receiving free water via PEG (1 L / day)
[2016-05-29] MEDS: HEPARIN SOD 5000 UNIT/0.5 ML CARP SQ SCH ×2 (11:17→20:01)
[2016-05-29] MEDS: PANTOprazole INJ 40 MG in SYRINGE 0 ML IV SCH (11:30)
[2016-05-29] MEDS: FIBERSOURCE HN 1000ML BAG PEG SCH ×2 (13:00)
--- NOTE | 2016-05-29 13:58 | Progress Note ---
Subjective Date of Service: May 29, 2016. Subjective pt still complaints of feeling stoned. no other complaints Problem List Medical Problems: (1) Bilateral pneumonia Status: Acute (2) Bradycardia Status: Acute (3) Cerebral contusion Status: Acute Review of Systems Constitutional: No chills, No fever Respiratory: No cough, No shortness of breath Cardiac: No chest pain, No edema Abdomen: No nausea, No pain, No vomiting Objective Vital Signs Date Time Temp Pulse Resp B/P Pulse Ox O2 Delivery O2 Flow Rate FiO2 05/29/16 06:59 36.5 61 18 119/75 97 Room Air 05/29/16 00:58 93 Room Air 10.0 05/28/16 23:52 36.3 18 133/77 90 Room Air 05/28/16 20:11 70 118/73 97 Room Air 05/28/16 16:00 93 Room Air 05/28/16 15:39 36.4 75 18 146/73 93 Room Air Physical Exam General Appearance: WD/WN, + mild distress Neck: supple, no JVD Respiratory/Chest: chest non-tender, + accessory muscle use, + rhonchi Cardiovascular: regular rate, rhythm, no murmur Abdomen: normal bowel sounds, non tender, soft Extremities: no pedal edema, no calf tenderness Neurologic/Psychiatric: alert, oriented x 3 Laboratory Results Last 24 Hours Test 05/28/16 09:00 05/28/16 18:17 05/29/16 00:04 05/29/16 05:40 Sodium Level 145 mmol/L 145 mmol/L Potassium Level 4.4 mmol/L 4.4 mmol/L Chloride Level 112 mmol/L 113 mmol/L Carbon Dioxide Level 22 mmol/L 21 mmol/L Anion Gap 11.0 mmol/L 11.0 mmol/L Blood Urea Nitrogen 125 mg/dl 126 mg/dl Creatinine 3.60 mg/dl 3.60 mg/dl Est Creatinine Clear Calc Drug Dose 19.1 ml/min 20.9 ml/min Estimated GFR () 19.5 19.5 Estimated GFR (Non- 16.8 16.8 BUN/Creatinine Ratio 34.6 34.9 Random Glucose 129 mg/dl 144 mg/dl Calcium Level 7.7 mg/dl 7.5 mg/dl Bedside Glucose 132 mg/dl 87 mg/dl White Blood Count 10.63 K/uL Red Blood Count 3.59 M/uL Hemoglobin 10.2 g/dL Hematocrit 29.8 % Mean Corpuscular Volume 83.0 fL Mean Corpuscular Hemoglobin 28.4 pg Mean Corpuscular Hemoglobin Concent 34.2 g/dl RDW Standard Deviation 41.7 fL RDW Coefficient of Variation 13.6 % Platelet Count 170 K/uL Mean Platelet Volume 10.6 fL Test 05/29/16 06:08 Bedside Glucose 150 mg/dl Assessment and Plan 66yo male with [place] chorea acute on chronic renal failure, dysphagia, and concerns for aspiration precluding any oral intake: acute renal failure / significant uremia - has improved but BUN still >100 and Cr > 3 has plateaued, Nephrology is following and trying to replete water deficit now by peg water flushes, has some severe ATN and sluggish improvements Severe dysphagia with known recurrent aspiration - appreciate speech therapy eval. PEG placement performed 05/25/16 did have high residuals so used reglan to assist in stomach emptying, may have become sleepy due to reglan so will stop recent SAH 2nd to trauma requiring hospital stay at [facility] [place] [place] in 04/16 - repeat head CT negative for ICH. Resume heparin for DVT proph. glaucoma - continue outpatient drops. patient's brother, Dr. Pan Garrett -who is a silviculturist. [phone]. was updated 05/24,05/28 karina patient care representative updated Documented By: Nikko Chen Continued [facility] stay due to: inadequate po fluid intake, multiple IV medications needed, other (pneumonia, severe dysphagia, NPO status) Discharge planning: home with home health
[2016-05-29 15:44] VITALS: BP 148/82; PULSE 76; TEMP 36.4; O2SAT 94
[2016-05-29] MEDS: MoRPHine SULFATE 2 MG/ML CARP IV PRN (16:58)
[2016-05-29] MEDS: TRAVOPROST Z 0.004% OPH SOLN 2.5 ML BTL OPL SCH (19:56)
[2016-05-29] MEDS: DONEPEZIL HCL 10 MG TAB PEG SCH (19:57)
[2016-05-29 23:39] VITALS: BP 170/99; PULSE 69; TEMP 36.1; O2SAT 95
[2016-05-30] MEDS: HydrALAZINE HCL 20 MG/ML VIAL IV. PRN (00:03)
[2016-05-30] MEDS: TUBE FEEDING WATER FLUSH PEG SCH ×4 (00:03→17:55)
[2016-05-30 07:11] LABS: BUN/CREATININE RATIO 37.4 (10-20); CALCIUM 7.7 mg/dl (8.5-10.1); CREATININE 3.5 mg/dl (0.60-1.40); POTASSIUM 4.2 mmol/L (3.5-5.1)
[2016-05-30 07:45] VITALS: BP 130/77; PULSE 70; TEMP 36.2; O2SAT 91
[2016-05-30] MEDS: DIPHENOXYLATE/ATROPINE 2.5/0.025MG TAB PO SCH ×2 (08:22→12:00)
[2016-05-30] MEDS: LOPERAMIDE HCL 2 MG CAP PO SCH ×2 (08:22→12:43)
[2016-05-30] MEDS: FEXOFENADINE HCL 180 MG TAB PO SCH (08:22)
[2016-05-30] MEDS: NYSTATIN SUSP 500,000 U/5 ML UDC PO SCH ×4 (08:22→20:02)
[2016-05-30] MEDS: DORZOLAMIDE/TIMOLOL 22.3/6.8MG/ML 10 ML BTL OPL SCH ×2 (08:23→20:02)
[2016-05-30] MEDS: HydrALAZINE 10 MG TAB PEG SCH ×3 (08:23→20:01)
[2016-05-30] MEDS: CHOLECALCIFEROL 1000 INTER.UNIT TAB PEG SCH (08:23)
[2016-05-30] MEDS: MEMANTINE 10 MG TAB PO SCH ×2 (08:24→20:02)
[2016-05-30] MEDS: MICONAZOLE NITRATE 2% CR 30 GM TUBE EXT SCH (08:24)
[2016-05-30] MEDS: NEOMYCIN/POLYMYX/BACITR OINT 15 GM TUBE EXT SCH ×2 (08:24→20:03)
[2016-05-30] MEDS: ASPIRIN 81 MG CHEW PEG SCH (08:25)
[2016-05-30] MEDS: FIBERSOURCE HN 1000ML BAG PEG SCH ×2 (08:29)
[2016-05-30] MEDS: MoRPHine SULFATE 2 MG/ML CARP IV PRN ×2 (08:29→19:55)
[2016-05-30] MEDS: HEPARIN SOD 5000 UNIT/0.5 ML CARP SQ SCH ×2 (08:48→20:02)
[2016-05-30] MEDS ORDERED: METOCLOPRAMIDE HCL 5 MG/5 ML UDP PO SCH (09:00)
[2016-05-30] MEDS: PANTOprazole INJ 40 MG in SYRINGE 0 ML IV SCH (10:55)
--- NOTE | 2016-05-30 11:13 | Nephrology Progress Note ---
Nephrology Progress Note Date of Service May 30, 2016. Chief Complaint Evaluation of JAZMINE, metabolic acidosis and 3rd spacing of fluid Subjective Mr. Garrett was seen & examined in his hospital room this morning. system software programmer is present at bedside. Mr. Garrett is awake & alert. He remains nonverbal. Patient has received ~ 13 L IV hydration since admission. He has developed dependent edema. Guardado catheter is in place. Urine microscopy shows granular casts c/w ATN. Patient is remains nonoliguric. UO improved to 900 cc yesterday. Review of Systems Unable to obtain. Patient is nonverbal Vital Signs Last 8 Hrs Date Time Temp Pulse Resp B/P Pulse Ox O2 Delivery O2 Flow Rate FiO2 05/30/16 08:00 Room Air 05/30/16 07:45 36.2 70 20 130/77 91 Room Air I & O 24-Hour Column 05/30/16 08:00 Intake Total 2399 ml Output Total 1050 ml Balance 1349 ml Last Recorded Weight Weight (Kilograms): 72.400 Physical Exam General Appearance: + thin (frail, chronically ill appearing) Head: atraumatic (temporal muscle wasting) Eyes: EOMI (Left pupil is dilated) Neck: no JVD Respiratory/Chest: lungs clear (anteriorly) Cardiovascular: regular rate, rhythm Abdomen/GI: soft (PEG tube in place) Genitourinary - Male: + pertinent finding (Guardado catheter w/ small volume of dark yellow urine in collection bag) Extremities/Musculoskelatal: no pedal edema Neurologic/Psych: alert (nonverbal) Family History Heart disease Brother is civil engineering drafter Social History Smoking Status: Former smoker Drug Use: none Marital Status: single Housing Status: lives alone Occupation: retired Retired. Lives at home with two round the clock care givers. History of tobacco use. Laboratory Results Past 24 Hours 05/30/16 05:32 Test 05/29/16 12:26 05/29/16 19:04 05/30/16 00:01 05/30/16 05:32 Bedside Glucose 152 mg/dl (70-99) 137 mg/dl (70-99) 115 mg/dl (70-99) Anion Gap 12.0 mmol/L (3-11) Est Creatinine Clear Calc Drug Dose 21.8 ml/min Estimated GFR () 20.2 Estimated GFR (Non- 17.4 BUN/Creatinine Ratio 37.4 (10-20) Calcium Level 7.7 mg/dl (8.5-10.1) Test 05/30/16 05:59 Bedside Glucose 138 mg/dl (70-99) Allergies Coded Allergies: Penicillins (Verified Allergy, Unknown, unknown, Per Erik Chang: pt rec'd ancef in OR w/o rxn, 01/12/16) pt/spouse Medications Current Inpatient Medications Medications (Trade) Dose Ordered Sig/Rachel Route Start Time Stop Time Status Last Admin Dose Admin Diphenoxylate HCl/ Atropine (Lomotil Tab) 1 tab QID PO 05/22/16 08:00 06/21/16 08:59 05/30/16 08:22 1 TAB Dorzolamide/ Timolol (Cosopt Op Soln) 1 drops BID OPL 05/22/16 08:00 06/21/16 08:59 05/30/16 08:23 1 DROPS Fexofenadine HCl (Scarlett Tab) 180 mg DAILY PO 05/22/16 08:00 06/21/16 07:59 05/30/16 08:22 180 MG Loperamide HCl (Imodium Cap) 2 mg QID PO 05/22/16 08:00 06/21/16 08:59 05/30/16 08:22 2 MG Memantine (Namenda Tab) 10 mg BID PO 05/22/16 08:00 06/24/16 07:59 05/30/16 08:24 10 MG Miconazole Nitrate (Monistat-Derm Crm) 1 appln DAILY EXT 05/22/16 08:00 06/21/16 08:59 05/30/16 08:24 1 APPLN Travoprost (Travatan Z) 1 drops HS OPL 05/22/16 21:00 06/21/16 20:59 05/29/16 19:56 1 DROPS Acetaminophen (Tylenol Tab) 650 mg Q4H PRN PO 05/22/16 02:15 06/21/16 02:14 05/22/16 16:37 650 MG Al Hydrox/Mg Hydrox/Simethicone (Maalox Max Susp) 15 ml Q4H PRN PO 05/22/16 02:15 06/21/16 02:14 Polyethylene (Miralax Powder Packet) 17 gm DAILY PRN PO 05/22/16 02:15 06/21/16 02:14 Ondansetron HCl (Zofran Inj) 4 mg Q6H PRN IV 05/22/16 02:15 06/21/16 02:14 Morphine Sulfate (MoRPHine SULFATE INJ) 2 mg Q2H PRN IV 05/22/16 18:30 06/05/16 18:29 05/30/16 08:29 2 MG Heparin Sodium (Porcine) (Heparin Sq 5000 Unit/0.5ml) 5,000 unit Q12 SQ 05/23/16 21:00 06/22/16 20:59 05/30/16 08:48 5,000 UNIT Nystatin (Mycostatin Susp) 5 ml QID PO 05/23/16 20:30 06/02/16 20:29 05/30/16 08:22 5 ML Hydralazine HCl 10 mg 10 mg Q6 PRN IV. 05/24/16 11:45 06/23/16 11:44 05/30/16 00:03 10 MG Pantoprazole Sodium/Syringe (Protonix Inj/ Syringe) 10 ml @ 5 mls/min DAILY@11 IV 05/26/16 11:00 06/25/16 10:59 05/30/16 10:55 5 MLS/MIN Neomycin/ Polymyxin/ Bacitracin (Neosporin Oint) 1 appln BID EXT 05/25/16 20:00 06/24/16 19:59 05/30/16 08:24 1 APPLN Cholecalciferol (Vitamin D Tab) 1,000 inter.unit DAILY PEG 05/26/16 08:00 06/25/16 07:59 05/30/16 08:23 1,000 INTER.UNIT Donepezil HCl (Aricept Tab) 10 mg HS PEG 05/25/16 21:00 06/24/16 20:59 05/29/16 19:57 10 MG Aspirin (Aspirin Chew) 81 mg DAILY PEG 05/26/16 08:00 06/24/16 07:59 05/30/16 08:25 81 MG Hydralazine HCl (Apresoline Tab) 10 mg TID PEG 05/26/16 20:00 06/25/16 19:59 05/30/16 08:23 10 MG Enteral Nutritional Formula (Fibersource HN) 1,000 ml UD PEG 05/27/16 15:00 06/26/16 14:59 05/30/16 08:29 1,000 ML Sterile Water (Tube Feeding Water Flush) 250 ea Q6 PEG 05/27/16 18:00 06/26/16 17:59 05/30/16 06:25 250 EA Impression (1) ARF (acute renal failure) (2) Metabolic acidosis (3) Dehydration (4) Hypoalbuminemia (5) Peripheral edema Chronically ill middle age male with [place]'s chorea, dementia and chronic aspiration. He was admitted for evaluation of dehydration, JAZMINE, metabolic acidosis and hypoalbuminemia. He has 3rd spacing of fluid into the dependent areas of his arms and legs. Patient had PEG placed 05/25/16. Abdominal CT was negative for obstruction. FeNa was < 0.5%. Urine sediment shows granular casts c/w ATN. Patient has high AG metabolic acidosis on the basis of JAZMINE. Recommendations ACUTE KIDNEY INJURY: -- Baseline creatinine 0.7 04/16 -- Abdominal CT 05/22/16: No renal obstruction -- Admission FeNa was < 0.5% -- Urine sediment shows granular casts c/w ATN -- Hold IVF at this time due to ATN and progressive peripheral edema -- Creatinine remains elevated but patient is now nonoliguric. UO is gradually increasing -- Patient is not a dialysis candidate due to his severe debilitated condition METABOLIC ACIDOSIS: -- High AGA due to JAZMINE -- Acidemia improved with NaHCO3 therapy. Target serum HCO3 20 - 22 -- Will hold IVF at this time due to ATN and progressive peripheral edema MALNUTRITION: -- Serum albumin is low. Patient has dependent edema -- Agree with starting enteral feeding via PEG -- Patient is receiving free water via PEG (1 L / day)
--- NOTE | 2016-05-30 11:34 | Progress Note ---
Subjective Date of Service: May 30, 2016. Subjective pt is more awake and alert today, still sluggish bun/Cr but making good urine Problem List Medical Problems: (1) Bilateral pneumonia Status: Acute (2) Bradycardia Status: Acute (3) Cerebral contusion Status: Acute Review of Systems Constitutional: No chills, No fever, No weakness Respiratory: No cough, No shortness of breath Cardiac: No chest pain, No edema Abdomen: No diarrhea, No nausea, No pain, No vomiting Objective Vital Signs Date Time Temp Pulse Resp B/P Pulse Ox O2 Delivery O2 Flow Rate FiO2 05/30/16 07:45 36.2 70 20 130/77 91 Room Air 05/29/16 23:59 Room Air 05/29/16 23:39 36.1 69 18 170/99 95 Room Air 05/29/16 16:10 Room Air 05/29/16 15:44 36.4 76 19 148/82 94 Room Air 05/29/16 08:30 97 Room Air Physical Exam General Appearance: no apparent distress, + thin Neck: supple, thyroid normal Respiratory/Chest: + decreased breath sounds (bases but chronically in bed) Cardiovascular: regular rate, rhythm, no murmur Abdomen: normal bowel sounds, non tender, soft, + pertinent finding (peg site is clean and non red) Extremities: no pedal edema, no calf tenderness Laboratory Results Last 24 Hours Test 05/29/16 12:26 05/30/16 05:32 Bedside Glucose 152 mg/dl Sodium Level 143 mmol/L Potassium Level 4.2 mmol/L Chloride Level 111 mmol/L Carbon Dioxide Level 20 mmol/L Anion Gap 12.0 mmol/L Blood Urea Nitrogen 131 mg/dl Creatinine 3.50 mg/dl Est Creatinine Clear Calc Drug Dose 21.8 ml/min Estimated GFR () 20.2 Estimated GFR (Non- 17.4 BUN/Creatinine Ratio 37.4 Random Glucose 153 mg/dl Calcium Level 7.7 mg/dl Assessment and Plan 66yo male with [place] chorea acute on chronic renal failure, dysphagia, and concerns for aspiration precluding any oral intake: PEG placed and feeding reached goal, caregivers eventually interested in nocturnal and eventual bolus feedings acute renal failure / significant uremia - has improved but BUN still >100 and Cr > 3, Nephrology is following and trying to replete water deficit now by peg water flushes, has some severe ATN and expect this to take a while Severe dysphagia with known recurrent aspiration - appreciate speech therapy eval. PEG placement performed 05/25/16 have nutrition consider nocturnal feeds at first then move to bolus feeds recent SAH 2nd to trauma requiring hospital stay at [facility] [place] in 04/16 - repeat head CT negative for ICH. Resume heparin for DVT proph. glaucoma - continue outpatient drops. patient's brother, Dr. Pan Garrett -who is a floorman. [phone]. was updated 05/24,05/28 karina childcare aide updated Documented By: Nikko Chen Continued [facility] stay due to: inadequate po fluid intake, multiple IV medications needed, other (pneumonia, severe dysphagia, NPO status) Discharge planning: home with home health
[2016-05-30 15:28] VITALS: BP 129/76; PULSE 67; TEMP 36.6; O2SAT 92
[2016-05-30 18:19] LABS: URINE APPEARANCE CLEAR (CLEAR); URINE BILIRUBIN NEG (NEG); URINE COLOR YELLOW; URINE EPITHELIAL CELL AUTO >30 /lpf (0-5); URINE NITRITE NEG (NEG); URINE PH 6.5 (4.5-7.5); URINE SPECIFIC GRAVITY 1.021 (1.000-1.030); UROBILINOGEN NEG (NEG)
[2016-05-30 18:20] LABS: MANUAL MICROSCOPIC REQUIRED? NO; REVIEW REQ? YES
[2016-05-30 20:00] VITALS: BP 146/79; PULSE 70
[2016-05-30] MEDS: DONEPEZIL HCL 10 MG TAB PEG SCH (20:01)
[2016-05-30] MEDS: TRAVOPROST Z 0.004% OPH SOLN 2.5 ML BTL OPL SCH (20:05)
[2016-05-31] MEDS: TUBE FEEDING WATER FLUSH PEG SCH ×4 (00:23→17:51)
[2016-05-31 01:21] VITALS: BP 136/83; PULSE 67; TEMP 36.3; O2SAT 98
[2016-05-31] MEDS: FIBERSOURCE HN 1000ML BAG PEG SCH ×4 (02:53→17:51)
[2016-05-31 06:49] LABS: BUN/CREATININE RATIO 36.4 (10-20); CALCIUM 7.7 mg/dl (8.5-10.1); CREATININE 3.6 mg/dl (0.60-1.40); POTASSIUM 4.5 mmol/L (3.5-5.1)
[2016-05-31 07:47] VITALS: BP 124/85; PULSE 73; TEMP 37; O2SAT 95
[2016-05-31 08:01] VITALS: BP 149/80; PULSE 76; TEMP 36.4; O2SAT 94
[2016-05-31] MEDS: HydrALAZINE 10 MG TAB PEG SCH ×3 (08:44→21:23)
[2016-05-31] MEDS: NEOMYCIN/POLYMYX/BACITR OINT 15 GM TUBE EXT SCH ×2 (08:44→21:21)
[2016-05-31] MEDS: MICONAZOLE NITRATE 2% CR 30 GM TUBE EXT SCH (08:44)
[2016-05-31] MEDS: FEXOFENADINE HCL 180 MG TAB PO SCH (08:44)
[2016-05-31] MEDS: CHOLECALCIFEROL 1000 INTER.UNIT TAB PEG SCH (08:44)
[2016-05-31] MEDS: DORZOLAMIDE/TIMOLOL 22.3/6.8MG/ML 10 ML BTL OPL SCH ×2 (08:44→21:21)
[2016-05-31] MEDS: NYSTATIN SUSP 500,000 U/5 ML UDC PO SCH ×5 (08:45→21:23)
[2016-05-31] MEDS: MEMANTINE 10 MG TAB PO SCH ×2 (08:45→21:21)
[2016-05-31] MEDS: HEPARIN SOD 5000 UNIT/0.5 ML CARP SQ SCH ×3 (08:49→21:00)
--- NOTE | 2016-05-31 12:30 | Nephrology Progress Note ---
Nephrology Progress Note Date of Service May 31, 2016. Chief Complaint Follow-up for acute kidney injury Subjective Clark was seen and examined in his room with his caregiver at bedside. He has been feeling fine, denies any shortness of breath, anorexia nausea. Has significant upper and lower extremity edema which seems to be worsening. Cr seems to have stabilized but no improvement in renal function over last 1 week, cr 3.6 and BUN 131 Review of Systems A complete review of systems was performed. Pertinent positives are noted above. All other systems are negative. Vital Signs Last 8 Hrs Date Time Temp Pulse Resp B/P Pulse Ox O2 Delivery O2 Flow Rate FiO2 05/31/16 08:01 36.4 76 18 149/80 94 Room Air 05/31/16 07:47 37.0 73 20 124/85 95 Room Air I & O 24-Hour Column 05/31/16 08:00 Intake Total 1222 ml Output Total 900 ml Balance 322 ml Last Recorded Weight Weight (Kilograms): 78.300 Physical Exam GENERAL: Middle aged male, AAA x 3, pleasant, healthy-appearing, not in any distress. NECK: Supple, no JVD. RESPIRATORY: Normal breathing efforts, no accessory muscle use, clear to auscultation bilaterally, no wheezes or rales. CARDIOVASCULAR: S1, S2 normal, rate rhythm regular. EXTREMITY: No lower extremity edema NEURO: speech fluent. PSYCHIATRY: Normal mood and judgment Family History Heart disease Brother is family independence case manager Social History Smoking Status: Former smoker Drug Use: none Marital Status: single Housing Status: lives alone Occupation: retired Retired. Lives at home with two round the clock care givers. History of tobacco use. Laboratory Results Past 24 Hours 05/31/16 05:35 Test 05/30/16 12:00 05/31/16 05:35 05/31/16 06:29 Bedside Glucose 115 mg/dl (70-99) 154 mg/dl (70-99) Anion Gap 11.0 mmol/L (3-11) Est Creatinine Clear Calc Drug Dose 23.0 ml/min Estimated GFR () 19.5 Estimated GFR (Non- 16.8 BUN/Creatinine Ratio 36.4 (10-20) Calcium Level 7.7 mg/dl (8.5-10.1) Allergies Coded Allergies: Penicillins (Verified Allergy, Unknown, unknown, Per Erik Maney: pt rec'd ancef in OR w/o rxn, 01/12/16) pt/spouse Medications Current Inpatient Medications Medications (Trade) Dose Ordered Sig/Rachel Route Start Time Stop Time Status Last Admin Dose Admin Dorzolamide/ Timolol (Cosopt Op Soln) 1 drops BID OPL 05/22/16 08:00 06/21/16 08:59 05/31/16 08:44 1 DROPS Fexofenadine HCl (Scarlett Tab) 180 mg DAILY PO 05/22/16 08:00 06/21/16 07:59 05/31/16 08:44 180 MG Memantine (Namenda Tab) 10 mg BID PO 05/22/16 08:00 06/24/16 07:59 05/31/16 08:45 10 MG Miconazole Nitrate (Monistat-Derm Crm) 1 appln DAILY EXT 05/22/16 08:00 06/21/16 08:59 05/31/16 08:44 1 APPLN Travoprost (Travatan Z) 1 drops HS OPL 05/22/16 21:00 06/21/16 20:59 05/30/16 20:05 1 DROPS Acetaminophen (Tylenol Tab) 650 mg Q4H PRN PO 05/22/16 02:15 06/21/16 02:14 05/22/16 16:37 650 MG Al Hydrox/Mg Hydrox/Simethicone (Maalox Max Susp) 15 ml Q4H PRN PO 05/22/16 02:15 06/21/16 02:14 Polyethylene (Miralax Powder Packet) 17 gm DAILY PRN PO 05/22/16 02:15 06/21/16 02:14 Ondansetron HCl (Zofran Inj) 4 mg Q6H PRN IV 05/22/16 02:15 06/21/16 02:14 Morphine Sulfate (MoRPHine SULFATE INJ) 2 mg Q2H PRN IV 05/22/16 18:30 06/05/16 18:29 05/30/16 19:55 2 MG Heparin Sodium (Porcine) (Heparin Sq 5000 Unit/0.5ml) 5,000 unit Q12 SQ 05/23/16 21:00 06/22/16 20:59 05/30/16 20:02 5,000 UNIT Nystatin (Mycostatin Susp) 5 ml QID PO 05/23/16 20:30 2/1/17 20:29 05/31/16 08:45 5 ML Hydralazine HCl (HydrALAZINE INJ) 10 mg Q6 PRN IV. 05/24/16 11:45 06/23/16 11:44 05/30/16 00:03 10 MG Neomycin/ Polymyxin/ Bacitracin (Neosporin Oint) 1 appln BID EXT 05/25/16 20:00 06/24/16 19:59 05/31/16 08:44 1 APPLN Cholecalciferol (Vitamin D Tab) 1,000 inter.unit DAILY PEG 05/26/16 08:00 06/25/16 07:59 05/31/16 08:44 1,000 INTER.UNIT Donepezil HCl (Aricept Tab) 10 mg HS PEG 05/25/16 21:00 06/24/16 20:59 05/30/16 20:01 10 MG Aspirin (Aspirin Chew) 81 mg DAILY PEG 05/26/16 08:00 06/24/16 07:59 05/30/16 08:25 81 MG Hydralazine HCl (Apresoline Tab) 10 mg TID PEG 05/26/16 20:00 06/25/16 19:59 05/31/16 08:44 10 MG Enteral Nutritional Formula (Fibersource HN) 1,000 ml UD PEG 05/27/16 15:00 06/26/16 14:59 05/31/16 02:53 1,000 ML Sterile Water (Tube Feeding Water Flush) 250 ea Q6 PEG 05/27/16 18:00 06/26/16 17:59 05/31/16 06:06 250 EA Lansoprazole (Prevacid Solutab) 30 mg QAM PEG 05/31/16 11:00 06/30/16 10:59 Impression (1) ARF (acute renal failure) (2) Metabolic acidosis (3) Dehydration (4) Hypoalbuminemia (5) Peripheral edema Chronically ill middle age male with [place]'s chorea, dementia and chronic aspiration. He was admitted for evaluation of dehydration, JAZMINE, metabolic acidosis and hypoalbuminemia. Baseline creatinine 0.7 04/16, Abdominal CT : No renal obstruction, Admission FeNa was < 0.5%, Urine sediment shows granular casts c/w ATN He has 3rd spacing of fluid into the dependent areas of his arms and legs. Patient had PEG placed 05/25/16. Abdominal CT was negative for obstruction. FeNa was < 0.5%. Urine sediment shows granular casts c/w ATN. Patient has high AG metabolic acidosis on the basis of JAZMINE. Recommendations ACUTE KIDNEY INJURY: -- Hold IVF at this time due to ATN and progressive peripheral edema -- start on Lasix 40 milligram p.o. b.i.d. -- Creatinine remains elevated but patient is now nonoliguric. -- Patient is not a dialysis candidate due to his severe debilitated condition METABOLIC ACIDOSIS: -- High AGA due to JAZMINE -- Acidemia improved with NaHCO3 therapy. Target serum HCO3 20 - 22 MALNUTRITION: -- Serum albumin is low. Patient has dependent edema -- Agree with starting enteral feeding via PEG -- Patient is receiving free water via PEG (1 L / day)
--- NOTE | 2016-05-31 13:38 | DIAGNOSTIC IMAGING REPORT ---
ULTRASOUND BILATERAL UPPER EXTREMITY VENOUS CLINICAL HISTORY: Upper extremity edema. COMPARISON STUDY: No priors. TECHNIQUE: Real-time, grayscale, and color Doppler sonography of the deep veins of the left and left upper extremity is performed. Compression and augmentation were utilized. FINDINGS: There is no sonographic evidence of deep venous thrombosis identified in the right or left upper extremity. The internal jugular, axillary, and brachial veins are patent and normally compressible bilateral. Normal venous waveforms and augmentation are seen within both subclavian veins. The cephalic and basilic veins are clear in both arms. The visualized radial and ulnar veins are patent bilaterally. IMPRESSION: There is no sonographic evidence of deep venous thrombosis identified in the right or left upper extremity. Electronically signed by: Pan Steen M.D. 05/31/2016 1:37 PM Dictated Date/Time: 05/31/2016 1:36 PM
--- NOTE | 2016-05-31 13:40 | DIAGNOSTIC IMAGING REPORT ---
Venous Doppler left leg LEFT VENOUS DOPP LOWER EXT UNILAT CLINICAL HISTORY: eval dv left leg pain. Edema. TECHNIQUE: Venous Doppler COMPARISON STUDY: 05/21/2016 FINDINGS: Normal study IMPRESSION: Normal study. Electronically signed by: Erik Tejada M.D. 05/31/2016 1:39 PM Dictated Date/Time: 05/31/2016 1:37 PM
[2016-05-31] MEDS: FUROSEMIDE 40 MG TAB PO SCH ×2 (13:46→17:52)
[2016-05-31] MEDS: LANSOPRAZOLE SOLUTAB 30 MG PEG SCH (13:46)
[2016-05-31] MEDS: ASPIRIN 81 MG CHEW PEG SCH (13:46)
[2016-05-31 14:28] VITALS: BP 134/76; PULSE 68; TEMP 36.3; O2SAT 98
[2016-05-31 16:20] VITALS: O2SAT 98
--- NOTE | 2016-05-31 21:01 | Progress Note ---
Subjective Date of Service: May 31, 2016. Subjective Pt evaluation today including: conversation w/ family (caregiver), physical exam, chart review, lab review, review of studies (dopplers of arms and left leg ), review of inpatient medication list Pain: ?LLQ of abdomen PO Intake: NPO, PEG tube feedings Voiding: jason catheter in place Patient's significant aphasia makes communicating with him nearly impossible. He inconsistently follows commands and inconsistently tries to vocalize answers to questions. He does seem to try and communicate that he is having some mild abdominal pain. I am otherwise unable to obtain ROS. Problem List Medical Problems: (1) Bilateral pneumonia Status: Acute (2) Bradycardia Status: Acute (3) Cerebral contusion Status: Acute Objective Vital Signs Date Time Temp Pulse Resp B/P Pulse Ox O2 Delivery O2 Flow Rate FiO2 05/31/16 14:28 36.3 68 20 134/76 98 Room Air 05/31/16 11:25 Room Air 05/31/16 08:01 36.4 76 18 149/80 94 Room Air 05/31/16 07:47 37.0 73 20 124/85 95 Room Air 05/31/16 01:21 36.3 67 16 136/83 98 Room Air 05/31/16 00:00 Room Air Physical Exam General Appearance: + cachetic, + thin ENT: + pertinent finding (MMM, poor dentition) Neck: no JVD Respiratory/Chest: + pertinent finding (course BS b/l; decreased BS bases) Cardiovascular: regular rate, rhythm, no gallop, no murmur Abdomen: normal bowel sounds, soft, no organomegaly, + tenderness (LLQ) Extremities: + pedal edema, + swelling (all 4 extremities; left leg is worse than right leg) Neurologic/Psychiatric: alert, + pertinent finding (unable to assess orientation, although he is sleepy throughout the visit ) Comments: PEG tube in place - clean, no erythema or drainage noted Laboratory Results Last 24 Hours Test 05/31/16 05:35 05/31/16 06:29 05/31/16 11:49 Sodium Level 142 mmol/L Potassium Level 4.5 mmol/L Chloride Level 111 mmol/L Carbon Dioxide Level 20 mmol/L Anion Gap 11.0 mmol/L Blood Urea Nitrogen 131 mg/dl Creatinine 3.60 mg/dl Est Creatinine Clear Calc Drug Dose 23.0 ml/min Estimated GFR () 19.5 Estimated GFR (Non- 16.8 BUN/Creatinine Ratio 36.4 Random Glucose 155 mg/dl Calcium Level 7.7 mg/dl Bedside Glucose 154 mg/dl 153 mg/dl Assessment and Plan 66yo male with: 1. profound acute renal failure / significant uremia - Was likely ATN. CT abd/pelvis w/o hydronephrosis or evidence of obstruction. Has plateaued at about 3.6 over the last 4 days. Additional recovery is unknown. Appreciate nephrology recommendations. BMP in am. 2. recent SAH 2nd to trauma requiring hospital stay at [facility] [place] in 04/16 - repeat head CT earlier this stay negative for blood. 3. severe dysphagia with known recurrent aspiration - s/p PEG tube placement this admission. On goal feedings and tolerating such today. 4. right-sided pneumonia, most likely aspiration - resolved; completed full course of antibiotics. 5. metabolic acidosis 2nd to uremia - improved. 6. 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 fairly advanced, with aphasia. 7. elevated BP w/o dx of HTN - may be due in part to #1 above. Continue hydralazine. 8. FEN - NPO; enteral feedings at goal; had feeding intolerance this weekend - now improved. BMP acceptable today. 9. microcytic anemia - stable H/H. 10. DVT proph - heparin BID. 11. glaucoma - continue outpatient drops. 12. mild-moderate protein calorie malnutrition - chronic, due to dementia, difficulty eating, etc. Appreciate dietary recommendations. 13. recent elevated INR - repeat in am. If still high suspect vitamin K deficiency and would Rx for such. 14. edema x 4 extremities - likely from hypoalbuminemia, bedbound status, etc. Checked dopplers to exclude DVT - negative for such. 15. PT, OT consultations to help with disposition Dr. Pan Garrett - brother [phone] Will update him tomorrow. Caregiver updated at bedside today. Continued [facility] stay due to: other (acute renal failure )
[2016-05-31] MEDS: DONEPEZIL HCL 10 MG TAB PEG SCH (21:22)
[2016-05-31] MEDS: TRAVOPROST Z 0.004% OPH SOLN 2.5 ML BTL OPL SCH (21:23)
[2016-06-01] MEDS: TUBE FEEDING WATER FLUSH PEG SCH ×4 (00:06→18:13)
[2016-06-01 00:08] VITALS: BP 123/80; PULSE 71; TEMP 36.6; O2SAT 98
[2016-06-01 07:45] VITALS: BP 125/78; PULSE 69; TEMP 36.3; O2SAT 97
[2016-06-01 07:53] LABS: INR 1.1 (0.9-1.1); PROTHROMBIN TIME (PATIENT) 11.9 SECONDS (9.0-12.0)
[2016-06-01 08:30] LABS: BUN/CREATININE RATIO 39.9 (10-20); CALCIUM 7.6 mg/dl (8.5-10.1); CREATININE 3.5 mg/dl (0.60-1.40)
[2016-06-01 08:42] LABS: PHOSPHORUS 6.6 mg/dl (2.5-4.9); THYROID STIMULATING HORMONE 2.61 uIu/ml (0.300-4.500)
[2016-06-01] MEDS: LANSOPRAZOLE SOLUTAB 30 MG PEG SCH (09:30)
[2016-06-01] MEDS: NEOMYCIN/POLYMYX/BACITR OINT 15 GM TUBE EXT SCH ×2 (09:30→21:59)
[2016-06-01] MEDS: MICONAZOLE NITRATE 2% CR 30 GM TUBE EXT SCH (09:30)
[2016-06-01] MEDS: HydrALAZINE 10 MG TAB PEG SCH ×3 (09:30→21:58)
[2016-06-01] MEDS: DORZOLAMIDE/TIMOLOL 22.3/6.8MG/ML 10 ML BTL OPL SCH ×2 (09:30→22:00)
[2016-06-01] MEDS: HEPARIN SOD 5000 UNIT/0.5 ML CARP SQ SCH ×2 (09:31→21:00)
[2016-06-01] MEDS: FUROSEMIDE 40 MG TAB PO SCH ×2 (09:31→18:12)
[2016-06-01] MEDS: CHOLECALCIFEROL 1000 INTER.UNIT TAB PEG SCH (09:31)
[2016-06-01] MEDS: FEXOFENADINE HCL 180 MG TAB PO SCH (09:31)
[2016-06-01] MEDS: MEMANTINE 10 MG TAB PO SCH ×2 (09:31→21:58)
[2016-06-01] MEDS: NYSTATIN SUSP 500,000 U/5 ML UDC PO SCH ×4 (09:31→21:57)
[2016-06-01] MEDS: ASPIRIN 81 MG CHEW PEG SCH (12:39)
[2016-06-01] MEDS: ACETAMINOPHEN 325 MG TAB PO PRN ×2 (12:39→18:12)
[2016-06-01] MEDS: FIBERSOURCE HN 1000ML BAG PEG SCH ×2 (12:39)
[2016-06-01 15:12] VITALS: BP 130/77; PULSE 64; TEMP 36.2; O2SAT 98
[2016-06-01 16:25] VITALS: O2SAT 98
--- NOTE | 2016-06-01 21:56 | Progress Note ---
Subjective Date of Service: Jun 01, 2016. Subjective Pt evaluation today including: conversation w/ patient, conversation w/ family (brotherPan, by phone (30 minute conversation)), physical exam, chart review , lab review, conversation w/ network security consultant (nephrology, Dr. Mancia, 15 minutes by phone), review of inpatient medication list Pain: occasional abdominal pain per his caregivers PO Intake: npo, PEG tube feedings Voiding: jason catheter in place Aphasia from his dementia makes communication very, very difficult. After a period of time I was able to decipher that he was asking "can I go home? " No acute issues per staff. BrotherPan, with numerous questions by phone. Cannot obtain a reliable ROS due to communication barriers. Problem List Medical Problems: (1) Bilateral pneumonia Status: Acute (2) Bradycardia Status: Acute (3) Cerebral contusion Status: Acute Objective Vital Signs Date Time Temp Pulse Resp B/P Pulse Ox O2 Delivery O2 Flow Rate FiO2 06/01/16 15:12 36.2 64 18 130/77 98 Room Air 06/01/16 10:50 Room Air 06/01/16 08:00 Room Air 06/01/16 07:45 36.3 69 16 125/78 97 Room Air 06/01/16 00:08 36.6 71 18 123/80 98 Room Air 06/01/16 00:00 Room Air Physical Exam General Appearance: no apparent distress, + cachetic, + thin ENT: + pertinent finding (poor dentition, no thrush, dried mucous on palate ) Neck: no JVD Respiratory/Chest: + pertinent finding (course BS b/l, no rales however) Cardiovascular: regular rate, rhythm, no gallop, no murmur Abdomen: normal bowel sounds, non tender, soft, no organomegaly, + pertinent finding (PEG tube in place and clean) Extremities: + swelling (all 4 extremities, 2-3+ ) Neurologic/Psychiatric: alert, + aphasia Skin: + pertinent finding (left distal espinoza with optifoam in place ) Laboratory Results Last 24 Hours Test 06/01/16 07:30 06/01/16 07:43 06/01/16 12:29 06/01/16 18:11 Prothrombin Time 11.9 SECONDS Prothromb Time International Ratio 1.1 Sodium Level 144 mmol/L Potassium Level 5.0 mmol/L Chloride Level 111 mmol/L Carbon Dioxide Level 20 mmol/L Anion Gap 13.0 mmol/L Blood Urea Nitrogen 140 mg/dl Creatinine 3.50 mg/dl Est Creatinine Clear Calc Drug Dose 21.8 ml/min Estimated GFR () 20.2 Estimated GFR (Non- 17.4 BUN/Creatinine Ratio 39.9 Random Glucose 143 mg/dl Calcium Level 7.6 mg/dl Phosphorus Level 6.6 mg/dl Albumin 1.0 gm/dl Vitamin B12 Level 1158 pg/mL Thyroid Stimulating Hormone (TSH) 2.610 uIu/ml Chemistry Specimen Hemolysis Bedside Glucose 151 mg/dl 151 mg/dl 148 mg/dl Assessment and Plan 66yo male with: 1. profound acute renal failure / significant uremia - Was likely ATN. However, has had persistent severe proteinuria - 4+ - on last 3 u/a's. Nephrotic syndrome?? CT abd/pelvis w/o hydronephrosis or evidence of obstruction. Has plateaued at about 3.5 - additional recovery is unknown. Appreciate nephrology recommendations. BMP in am. After speaking with Pan, his POA and brother -- no hemodialysis. 2. recent SAH 2nd to trauma requiring hospital stay at [facility] [place] - repeat head CT earlier this stay negative for blood. 3. severe dysphagia with known recurrent aspiration - s/p PEG tube placement this admission. On goal feedings. 4. right-sided pneumonia, most likely aspiration - resolved; completed full course of antibiotics. 5. metabolic acidosis 2nd to uremia - improved. 6. 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 7. elevated BP w/o dx of HTN - continue hydralazine. Controlled. 8. FEN - NPO; enteral feedings at goal. 9. microcytic anemia - stable H/H. 10. DVT proph - heparin BID. But patient refusing such, and poor candidate for TEDS/SCDs due to copious edema. 11. glaucoma - continue outpatient drops. 12. severe protein calorie malnutrition - chronic, due to dementia, difficulty eating, ?nephrotic syndrome, etc. Appreciate dietary recommendations. 13. recent elevated INR - resolved. 14. edema x 4 extremities - likely from hypoalbuminemia, bedbound status, etc. Checked dopplers to exclude DVT - negative for such. 15. PT, OT consultations done - needs lift to transfer to bed. Had 30+ minute conversation with Dr. Pan Garrett - brother and POA - by phone today. [phone] Discussed all issues at hand, plan of care, poor prognosis, need for lift to transfer, etc Answered all questions. He asked that we speak with the lead rider tomorrow (Traci) about these things. We will need to secure lift, etc for his home. Brother states he made a pact with Clark to never place him in SNF. total time today about 60 minutes Continued [facility] stay due to: other (acute renal failure ) Discharge planning: home with home health
[2016-06-01] MEDS: DONEPEZIL HCL 10 MG TAB PEG SCH (21:57)
[2016-06-01] MEDS: MoRPHine SULFATE 2 MG/ML CARP IV PRN (21:57)
[2016-06-01] MEDS: TRAVOPROST Z 0.004% OPH SOLN 2.5 ML BTL OPL SCH (21:59)
[2016-06-02 00:42] VITALS: BP 136/50; PULSE 65; TEMP 36.7; O2SAT 97
[2016-06-02] MEDS: TUBE FEEDING WATER FLUSH PEG SCH ×4 (05:46→18:50)
[2016-06-02] MEDS: FIBERSOURCE HN 1000ML BAG PEG SCH ×4 (05:52→22:36)
[2016-06-02 07:32] LABS: BUN/CREATININE RATIO 39.1 (10-20); CALCIUM 7.5 mg/dl (8.5-10.1); CREATININE 3.4 mg/dl (0.60-1.40); POTASSIUM 4.7 mmol/L (3.5-5.1)
--- NOTE | 2016-06-02 08:00 | Nephrology Progress Note ---
Nephrology Progress Note Date of Service Jun 01, 2016. Chief Complaint Follow-up for acute kidney injury Subjective Clark was seen and examined in his room with his caregiver at bedside. He has been Complaining of pain all over but denies any shortness of breath, anorexia nausea. Has significant upper and lower extremity edema without much change after started on diuretics yesterday, has decent urine output and may need more than 1 liter of urine last 24 hours. Cr seems to have stabilized but no improvement in renal function over last 1 week, cr 3.5 and BUN 141. currently blood pressure and electrolyte acceptable. Review of Systems A complete review of systems was performed. Pertinent positives are noted above. All other systems are negative. Vital Signs Last 8 Hrs Date Time Temp Pulse Resp B/P Pulse Ox O2 Delivery O2 Flow Rate FiO2 06/01/16 08:00 Room Air 06/01/16 07:45 36.3 69 16 125/78 97 Room Air I & O 24-Hour Column 06/01/16 08:00 Intake Total 3348 ml Output Total 1200 ml Balance 2148 ml Last Recorded Weight Weight (Kilograms): 72.200 Physical Exam GENERAL: Middle aged male, AAA x 3, pleasant, ill-appearing, not in any distress. NECK: Supple, no JVD. RESPIRATORY: Normal breathing efforts, no accessory muscle use, clear to auscultation bilaterally, no wheezes or rales. CARDIOVASCULAR: S1, S2 normal, rate rhythm regular. EXTREMITY: bilateral up and lower extremity edema NEURO: speech fluent. PSYCHIATRY: Normal mood and judgment Family History Heart disease Brother is tufter Social History Smoking Status: Former smoker Drug Use: none Marital Status: single Housing Status: lives alone Occupation: retired Retired. Lives at home with two round the clock care givers. History of tobacco use. Laboratory Results Past 24 Hours 06/01/16 07:30 Test 05/31/16 11:49 06/01/16 07:30 Bedside Glucose 153 mg/dl (70-99) Prothrombin Time 11.9 SECONDS (9.0-12.0) Prothromb Time International Ratio 1.1 (0.9-1.1) Anion Gap 13.0 mmol/L (3-11) Est Creatinine Clear Calc Drug Dose 21.8 ml/min Estimated GFR () 20.2 Estimated GFR (Non- 17.4 BUN/Creatinine Ratio 39.9 (10-20) Calcium Level 7.6 mg/dl (8.5-10.1) Phosphorus Level 6.6 mg/dl (2.5-4.9) Albumin 1.0 gm/dl (3.4-5.0) Vitamin B12 Level 1158 pg/mL (211-911) Thyroid Stimulating Hormone (TSH) 2.610 uIu/ml (0.300-4.500) Chemistry Specimen Hemolysis Date/Time Source Procedure Growth Status 05/31/16 10:32 Stool C.difficile Toxin B Gene (PCR) - Final No C. difficile toxin B gene detected Complete Allergies Coded Allergies: Penicillins (Verified Allergy, Unknown, unknown, Per Erik Chang: pt rec'd ancef in OR w/o rxn, 01/12/16) pt/spouse Medications Current Inpatient Medications Medications (Trade) Dose Ordered Sig/Rachel Route Start Time Stop Time Status Last Admin Dose Admin Dorzolamide/ Timolol (Cosopt Op Soln) 1 drops BID OPL 05/22/16 08:00 06/21/16 08:59 05/31/16 21:21 1 DROPS Fexofenadine HCl (Scarlett Tab) 180 mg DAILY PO 05/22/16 08:00 06/21/16 07:59 05/31/16 08:44 180 MG Memantine (Namenda Tab) 10 mg BID PO 05/22/16 08:00 06/24/16 07:59 05/31/16 21:21 10 MG Miconazole Nitrate (Monistat-Derm Crm) 1 appln DAILY EXT 05/22/16 08:00 06/21/16 08:59 05/31/16 08:44 1 APPLN Travoprost (Travatan Z) 1 drops HS OPL 05/22/16 21:00 06/21/16 20:59 05/31/16 21:23 1 DROPS Acetaminophen (Tylenol Tab) 650 mg Q4H PRN PO 05/22/16 02:15 06/21/16 02:14 05/22/16 16:37 650 MG Al Hydrox/Mg Hydrox/Simethicone (Maalox Max Susp) 15 ml Q4H PRN PO 05/22/16 02:15 06/21/16 02:14 Polyethylene (Miralax Powder Packet) 17 gm DAILY PRN PO 05/22/16 02:15 06/21/16 02:14 Ondansetron HCl (Zofran Inj) 4 mg Q6H PRN IV 05/22/16 02:15 06/21/16 02:14 Morphine Sulfate (MoRPHine SULFATE INJ) 2 mg Q2H PRN IV 05/22/16 18:30 06/05/16 18:29 05/30/16 19:55 2 MG Heparin Sodium (Porcine) (Heparin Sq 5000 Unit/0.5ml) 5,000 unit Q12 SQ 05/23/16 21:00 06/22/16 20:59 05/30/16 20:02 5,000 UNIT Nystatin (Mycostatin Susp) 5 ml QID PO 05/23/16 20:30 06/02/16 20:29 05/31/16 21:23 5 ML Hydralazine HCl (HydrALAZINE INJ) 10 mg Q6 PRN IV. 05/24/16 11:45 06/23/16 11:44 05/30/16 00:03 10 MG Neomycin/ Polymyxin/ Bacitracin (Neosporin Oint) 1 appln BID EXT 05/25/16 20:00 06/24/16 19:59 05/31/16 21:21 1 APPLN Cholecalciferol (Vitamin D Tab) 1,000 inter.unit DAILY PEG 05/26/16 08:00 06/25/16 07:59 05/31/16 08:44 1,000 INTER.UNIT Donepezil HCl (Aricept Tab) 10 mg HS PEG 05/25/16 21:00 06/24/16 20:59 05/31/16 21:22 10 MG Aspirin (Aspirin Chew) 81 mg DAILY PEG 05/26/16 08:00 06/24/16 07:59 05/31/16 13:46 81 MG Hydralazine HCl (Apresoline Tab) 10 mg TID PEG 05/26/16 20:00 06/25/16 19:59 05/31/16 21:23 10 MG Enteral Nutritional Formula (Fibersource HN) 1,000 ml UD PEG 05/27/16 15:00 06/26/16 14:59 05/31/16 17:51 1,000 ML Sterile Water (Tube Feeding Water Flush) 250 ea Q6 PEG 05/27/16 18:00 06/26/16 17:59 06/01/16 06:43 250 EA Lansoprazole (Prevacid Solutab) 30 mg QAM PEG 05/31/16 11:00 06/30/16 10:59 05/31/16 13:46 30 MG Furosemide (Lasix Tab) 40 mg BID17 PO 05/31/16 12:45 06/30/16 12:44 05/31/16 17:52 40 MG Impression (1) ARF (acute renal failure) (2) Metabolic acidosis (3) Dehydration (4) Hypoalbuminemia (5) Peripheral edema Chronically ill middle age male with [place]'s chorea, dementia and chronic aspiration. He was admitted for evaluation of dehydration, JAZMINE, metabolic acidosis and hypoalbuminemia. Baseline creatinine 0.7 04/16, Abdominal CT : No renal obstruction, Admission FeNa was < 0.5%, Urine sediment shows granular casts c/w ATN He has 3rd spacing of fluid into the dependent areas of his arms and legs. Patient had PEG placed 05/25/16. Abdominal CT was negative for obstruction. FeNa was < 0.5%. Urine sediment shows granular casts c/w ATN. Patient has high AG metabolic acidosis on the basis of JAZMINE. Recommendations ACUTE KIDNEY INJURY: -- Hold IVF at this time due to ATN and progressive peripheral edema -- continue on Lasix 40 milligram p.o. b.i.d, however if no significant response, patient may need higher dose considering low GFR -- had long discussion with his brother and healthcare power of county attorney Pan Ramirez over telephone( [phone] ). explained that Patient is not a dialysis candidate due to his severe debilitated condition. -- requested physical therapy and improved nutrition any improvement in volume status so that patient can go home and be functional as much as possible. Agreed that dialysis would not improve quality of life and decided not to consider dialysis. METABOLIC ACIDOSIS: -- High AGA due to JAZMINE -- Acidemia improved with NaHCO3 therapy. Target serum HCO3 20 - 22 MALNUTRITION: -- continue on enteral feeding via PEG -- Patient is receiving free water via PEG (1 L / day) DVT prophylaxis: patient has been having difficulty with heparin shot and family requested insisted to consider low-dose IV heparin. Will evaluate whether that is a possibility.
[2016-06-02 08:06] VITALS: BP 144/84; PULSE 73; TEMP 36; O2SAT 97
[2016-06-02] MEDS: NEOMYCIN/POLYMYX/BACITR OINT 15 GM TUBE EXT SCH ×2 (08:11→20:07)
[2016-06-02] MEDS: MICONAZOLE NITRATE 2% CR 30 GM TUBE EXT SCH (08:11)
[2016-06-02] MEDS: DORZOLAMIDE/TIMOLOL 22.3/6.8MG/ML 10 ML BTL OPL SCH ×2 (08:12→20:07)
[2016-06-02] MEDS: ASPIRIN 81 MG CHEW PEG SCH (08:12)
[2016-06-02] MEDS: CHOLECALCIFEROL 1000 INTER.UNIT TAB PEG SCH (08:12)
[2016-06-02] MEDS: LANSOPRAZOLE SOLUTAB 30 MG PEG SCH (08:12)
[2016-06-02] MEDS: HydrALAZINE 10 MG TAB PEG SCH ×3 (08:12→20:08)
[2016-06-02] MEDS: FUROSEMIDE 40 MG TAB PO SCH ×3 (08:13→18:41)
[2016-06-02] MEDS: NYSTATIN SUSP 500,000 U/5 ML UDC PO SCH ×4 (08:13→20:07)
[2016-06-02] MEDS: FEXOFENADINE HCL 60 MG TAB PO SCH (08:13)
[2016-06-02] MEDS: HEPARIN SOD 5000 UNIT/0.5 ML CARP SQ SCH ×2 (08:13→21:00)
[2016-06-02] MEDS: MEMANTINE 10 MG TAB PO SCH ×2 (08:13→20:08)
[2016-06-02 10:09] LABS: URINE PROTIEN/CREAT RATIO 27.8 (0-0.2); URINE TOTAL PROTEIN 1138.2 mg/dl (0-11.9)
[2016-06-02] MEDS: ACETAMINOPHEN 325 MG TAB PO PRN ×2 (10:15→18:41)
--- NOTE | 2016-06-02 10:15 | Nephrology Progress Note ---
Nephrology Progress Note Date of Service Jun 02, 2016. Chief Complaint Follow-up for acute kidney injury Subjective Clark was seen and examined in his room with his caregiver at bedside. He denies any shortness of breath, anorexia nausea. Has significant upper and lower extremity edema without much change after started on diuretics yesterday , has decent urine output. Cr seems to have stabilized but no improvement in renal function over last 1 week, cr 3.4 and BUN 131. Blood pressure well controlled. Review of Systems A complete review of systems was performed. Pertinent positives are noted above. All other systems are negative. Vital Signs Last 8 Hrs Date Time Temp Pulse Resp B/P Pulse Ox O2 Delivery O2 Flow Rate FiO2 06/02/16 00:42 36.7 65 16 136/50 97 Room Air I & O 24-Hour Column 06/02/16 08:00 Intake Total 1988 ml Output Total 1250 ml Balance 738 ml Last Recorded Weight Weight (Kilograms): 72.200 Physical Exam GENERAL: Middle aged male, AAA x 3, pleasant, ill-appearing, not in any distress. NECK: Supple, no JVD. RESPIRATORY: Normal breathing efforts, no accessory muscle use, clear to auscultation bilaterally, no wheezes or rales. CARDIOVASCULAR: S1, S2 normal, rate rhythm regular. EXTREMITY: bilateral up and lower extremity edema NEURO: speech fluent. PSYCHIATRY: Normal mood and judgment Family History Heart disease Brother is agile developer Social History Smoking Status: Former smoker Drug Use: none Marital Status: single Housing Status: lives alone Occupation: retired Retired. Lives at home with two round the clock care givers. History of tobacco use. Laboratory Results Past 24 Hours 06/02/16 05:55 Test 06/01/16 12:29 06/01/16 18:11 06/02/16 00:38 06/02/16 05:55 Bedside Glucose 151 mg/dl (70-99) 148 mg/dl (70-99) 137 mg/dl (70-99) Anion Gap 13.0 mmol/L (3-11) Est Creatinine Clear Calc Drug Dose 23.8 ml/min Estimated GFR () 20.9 Estimated GFR (Non- 18.0 BUN/Creatinine Ratio 39.1 (10-20) Calcium Level 7.5 mg/dl (8.5-10.1) Test 06/02/16 06:09 Bedside Glucose 130 mg/dl (70-99) Allergies Coded Allergies: Penicillins (Verified Allergy, Unknown, unknown, Per Erik Chang: pt rec'd ancef in OR w/o rxn, 01/12/16) pt/spouse Medications Current Inpatient Medications Medications (Trade) Dose Ordered Sig/Rachel Route Start Time Stop Time Status Last Admin Dose Admin Dorzolamide/ Timolol (Cosopt Op Soln) 1 drops BID OPL 05/22/16 08:00 06/21/16 08:59 06/01/16 22:00 1 DROPS Memantine (Namenda Tab) 10 mg BID PO 05/22/16 08:00 06/24/16 07:59 06/01/16 21:58 10 MG Miconazole Nitrate (Monistat-Derm Crm) 1 appln DAILY EXT 05/22/16 08:00 06/21/16 08:59 06/01/16 09:30 1 APPLN Travoprost (Travatan Z) 1 drops HS OPL 05/22/16 21:00 06/21/16 20:59 06/01/16 21:59 1 DROPS Acetaminophen (Tylenol Tab) 650 mg Q4H PRN PO 05/22/16 02:15 06/21/16 02:14 06/01/16 18:12 650 MG Al Hydrox/Mg Hydrox/Simethicone (Maalox Max Susp) 15 ml Q4H PRN PO 05/22/16 02:15 06/21/16 02:14 Polyethylene (Miralax Powder Packet) 17 gm DAILY PRN PO 05/22/16 02:15 06/21/16 02:14 Ondansetron HCl (Zofran Inj) 4 mg Q6H PRN IV 05/22/16 02:15 06/21/16 02:14 Morphine Sulfate (MoRPHine SULFATE INJ) 2 mg Q2H PRN IV 05/22/16 18:30 06/05/16 18:29 06/01/16 21:57 2 MG Heparin Sodium (Porcine) (Heparin Sq 5000 Unit/0.5ml) 5,000 unit Q12 SQ 05/23/16 21:00 06/22/16 20:59 05/30/16 20:02 5,000 UNIT Nystatin (Mycostatin Susp) 5 ml QID PO 05/23/16 20:30 06/02/16 20:29 06/01/16 21:57 5 ML Hydralazine HCl (HydrALAZINE INJ) 10 mg Q6 PRN IV. 05/24/16 11:45 06/23/16 11:44 05/30/16 00:03 10 MG Neomycin/ Polymyxin/ Bacitracin (Neosporin Oint) 1 appln BID EXT 05/25/16 20:00 06/24/16 19:59 06/01/16 21:59 1 APPLN Cholecalciferol (Vitamin D Tab) 1,000 inter.unit DAILY PEG 05/26/16 08:00 06/25/16 07:59 06/01/16 09:31 1,000 INTER.UNIT Donepezil HCl (Aricept Tab) 10 mg HS PEG 05/25/16 21:00 06/24/16 20:59 06/01/16 21:57 10 MG Aspirin (Aspirin Chew) 81 mg DAILY PEG 05/26/16 08:00 06/24/16 07:59 06/01/16 12:39 81 MG Hydralazine HCl (Apresoline Tab) 10 mg TID PEG 05/26/16 20:00 06/25/16 19:59 06/01/16 21:58 10 MG Enteral Nutritional Formula (Fibersource HN) 1,000 ml UD PEG 05/27/16 15:00 06/26/16 14:59 06/02/16 05:52 1,000 ML Sterile Water (Tube Feeding Water Flush) 250 ea Q6 PEG 05/27/16 18:00 06/26/16 17:59 06/02/16 05:46 250 EA Lansoprazole (Prevacid Solutab) 30 mg QAM PEG 05/31/16 11:00 06/30/16 10:59 06/01/16 09:30 30 MG Furosemide (Lasix Tab) 40 mg BID17 PO 05/31/16 12:45 06/30/16 12:44 06/01/16 18:12 40 MG Fexofenadine HCl (Scarlett Tab) 30 mg DAILY PO 06/02/16 08:00 07/02/16 07:59 Impression (1) ARF (acute renal failure) (2) Metabolic acidosis (3) Dehydration (4) Hypoalbuminemia (5) Peripheral edema Chronically ill middle age male with [place]'s chorea, dementia and chronic aspiration. He was admitted for evaluation of dehydration, JAZMINE, metabolic acidosis and hypoalbuminemia. Baseline creatinine 0.7 04/16, Abdominal CT : No renal obstruction, Admission FeNa was < 0.5%, Urine sediment shows granular casts c/w ATN He has 3rd spacing of fluid into the dependent areas of his arms and legs. Patient had PEG placed 05/25/16. Abdominal CT was negative for obstruction. FeNa was < 0.5%. Urine sediment shows granular casts c/w ATN. Patient has high AG metabolic acidosis on the basis of JAZMINE. Recommendations ACUTE KIDNEY INJURY: -- increase Lasix to 80 milligram p.o. b.i.d -- continue to monitor for renal recovery. METABOLIC ACIDOSIS: -- continue on Na bicarb MALNUTRITION: -- continue on enteral feeding via PEG -- Patient is receiving free water via PEG (1 L / day)
[2016-06-02 10:37] LABS: MANUAL MICROSCOPIC REQUIRED? NO; REVIEW REQ? YES; URINE APPEARANCE CLEAR (CLEAR); URINE BILIRUBIN NEG (NEG); URINE COLOR YELLOW; URINE EPITHELIAL CELL AUTO >30 /lpf (0-5); URINE NITRITE NEG (NEG); URINE SPECIFIC GRAVITY 1.018 (1.000-1.030); UROBILINOGEN NEG (NEG)
[2016-06-02 16:02] VITALS: BP 138/80; PULSE 76; TEMP 36.3; O2SAT 93
[2016-06-02] MEDS: SODIUM BICARBONATE 650 MG TAB PO SCH (20:08)
[2016-06-02] MEDS: TRAVOPROST Z 0.004% OPH SOLN 2.5 ML BTL OPL SCH (20:08)
[2016-06-02] MEDS: DONEPEZIL HCL 10 MG TAB PEG SCH (20:09)
--- NOTE | 2016-06-02 21:32 | Progress Note ---
Subjective Date of Service: Jun 02, 2016. Subjective Pt evaluation today including: conversation w/ patient, conversation w/ family (caregivers at bedside), physical exam, chart review, lab review, conversation w / behavioral health consultant (nephrology), review of inpatient medication list Pain: none voiced today PO Intake: npo Voiding: jason catheter in place no issues overnight tolerating tube feedings patient again states he "wants to go home" caregivers at bedside today; they desire an electronic lift for home usage they ask whether to keep the jason in Problem List Medical Problems: (1) Bilateral pneumonia Status: Acute (2) Bradycardia Status: Acute (3) Cerebral contusion Status: Acute Review of Systems cannot obtain reliable ROS due to dementia Objective Vital Signs Date Time Temp Pulse Resp B/P Pulse Ox O2 Delivery O2 Flow Rate FiO2 06/02/16 16:02 36.3 76 18 138/80 93 Room Air 06/02/16 16:00 Room Air 06/02/16 14:21 Room Air 06/02/16 08:06 36.0 73 18 144/84 97 Room Air 06/02/16 00:42 36.7 65 16 136/50 97 Room Air 06/02/16 00:00 Room Air Physical Exam General Appearance: no apparent distress, + cachetic, + thin ENT: + pertinent finding (dried mucous in mouth, poor dentition with multiple cavities and decay) Neck: no JVD Respiratory/Chest: no respiratory distress, no accessory muscle use, + pertinent finding (very course BS on right, clear on left) Cardiovascular: regular rate, rhythm, no gallop, no murmur Abdomen: normal bowel sounds, non tender, soft, no organomegaly, + pertinent finding (PEG tube site clean) Extremities: + swelling (x 4 extremities - about 2+) Neurologic/Psychiatric: alert, + aphasia Skin: + pertinent finding (optifoam in place on distal left espinoza - no change) Laboratory Results Last 24 Hours Test 06/02/16 00:00 06/02/16 00:38 06/02/16 05:55 06/02/16 06:09 Bedside Glucose 137 mg/dl 130 mg/dl Sodium Level 143 mmol/L Potassium Level 4.7 mmol/L Chloride Level 110 mmol/L Carbon Dioxide Level 20 mmol/L Anion Gap 13.0 mmol/L Blood Urea Nitrogen 133 mg/dl Creatinine 3.40 mg/dl Est Creatinine Clear Calc Drug Dose 23.8 ml/min Estimated GFR () 20.9 Estimated GFR (Non- 18.0 BUN/Creatinine Ratio 39.1 Random Glucose 132 mg/dl Calcium Level 7.5 mg/dl Test 06/02/16 09:10 06/02/16 10:00 06/02/16 10:25 Urine Random Creatinine 41.0 mg/dl Urine Random Total Protein 1138.2 mg/dl Urine Protein/Creatinine Ratio 27.8 Urine Color YELLOW Urine Appearance CLEAR Urine pH 7.0 Urine Specific [place] 1.018 Urine Protein 4+ Urine Glucose (UA) 1+ Urine Ketones NEG Urine Occult Blood 3+ Urine Nitrite NEG Urine Bilirubin NEG Urine Urobilinogen NEG Urine Leukocyte Esterase TRACE Urine WBC (Auto) 10-30 /hpf Urine RBC (Auto) >30 /hpf Urine Hyaline Casts (Auto) 10-30 /lpf Urine Epithelial Cells (Auto) >30 /lpf Urine Bacteria (Auto) NEG Urine Renal Epithelial Cells /lpf Urine Yeast (Auto) Assessment and Plan 66yo male with: 1. profound acute renal failure -- modestly improved since admission but BUN/ Cr largely the same x 5-6 days. Was likely ATN. However, has had persistent severe proteinuria - 4+ - on last 4 u/a's. Nephrotic syndrome?? CT abd/pelvis w/o hydronephrosis or evidence of obstruction. Appreciate nephrology recommendations. BMP in am. After speaking with Pan, his POA and brother -- no hemodialysis. Pt has also tried to communicate he does not wish for hemodialysis. 2. recent SAH 2nd to trauma requiring hospital stay at [facility] in 04/16 - repeat head CT earlier this stay negative for blood. 3. severe dysphagia with known recurrent aspiration - s/p PEG tube placement this admission. 4. right-sided pneumonia, most likely aspiration - resolved, but likely still intermittently aspirating his own secretions. 5. 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 6. elevated BP w/o dx of HTN - continue hydralazine. Controlled. 7. FEN - NPO; enteral feedings at goal. Will change continuous feedings to bolus 5x's a day. 8. DVT proph - heparin BID. But patient refusing such, and poor candidate for TEDS/SCDs due to copious edema. 9. glaucoma - continue outpatient drops. 10. severe protein calorie malnutrition - chronic, due to dementia, difficulty eating, ?nephrotic syndrome, etc. Appreciate dietary recommendations. 11. recent elevated INR - resolved. 12. edema x 4 extremities - likely from hypoalbuminemia, bedbound status, etc. Checked dopplers to exclude DVT - negative for such. 13. PT, OT consultations done and appreciated Dr. Pan Garrett - brother and POA - updated by phone on 06/01/16. [phone] updated the director of his caregiver services extensively today hopefully home next 2 days if all medical equipment can be secure for his house poor prognosis Continued [facility] stay due to: other (acute renal failure ) Discharge planning: home with home health
[2016-06-02 23:11] VITALS: BP 142/82; PULSE 71; TEMP 36.3; O2SAT 94
[2016-06-03] MEDS: TUBE FEEDING WATER FLUSH PEG SCH ×4 (00:26→16:12)
[2016-06-03 07:16] LABS: BUN/CREATININE RATIO 39.4 (10-20); CALCIUM 7.4 mg/dl (8.5-10.1); CREATININE 3.4 mg/dl (0.60-1.40); PHOSPHORUS 7.2 mg/dl (2.5-4.9); POTASSIUM 4.9 mmol/L (3.5-5.1)
[2016-06-03 07:29] VITALS: BP 145/77; PULSE 75; TEMP 36.3; O2SAT 99
[2016-06-03] MEDS: FEXOFENADINE HCL 60 MG TAB PO SCH (08:17)
[2016-06-03] MEDS: LANSOPRAZOLE SOLUTAB 30 MG PEG SCH (08:17)
[2016-06-03] MEDS: MEMANTINE 10 MG TAB PO SCH ×2 (08:17→20:33)
[2016-06-03] MEDS: SODIUM BICARBONATE 650 MG TAB PO SCH ×2 (08:18→20:33)
[2016-06-03] MEDS: HydrALAZINE 10 MG TAB PEG SCH ×3 (08:18→20:32)
[2016-06-03] MEDS: FUROSEMIDE 40 MG TAB PO SCH ×2 (08:18→16:49)
[2016-06-03] MEDS: CHOLECALCIFEROL 1000 INTER.UNIT TAB PEG SCH (08:18)
[2016-06-03] MEDS: DORZOLAMIDE/TIMOLOL 22.3/6.8MG/ML 10 ML BTL OPL SCH ×2 (08:18→20:32)
[2016-06-03] MEDS: NEOMYCIN/POLYMYX/BACITR OINT 15 GM TUBE EXT SCH ×2 (08:19→20:32)
[2016-06-03] MEDS: MICONAZOLE NITRATE 2% CR 30 GM TUBE EXT SCH (08:19)
[2016-06-03] MEDS: HEPARIN SOD 5000 UNIT/0.5 ML CARP SQ SCH ×3 (08:28→20:51)
[2016-06-03] MEDS: ASPIRIN 81 MG CHEW PEG SCH (08:48)
--- NOTE | 2016-06-03 09:42 | Nephrology Progress Note ---
Nephrology Progress Note Date of Service Jun 03, 2016. Chief Complaint Follow-up for acute kidney injury Subjective Clark was seen and examined in his room with his caregiver at bedside. He denies any shortness of breath, anorexia nausea. Upper and lower extremity edema seems to be slightly better, has decent urine output. Cr seems to have stabilized but no improvement in renal function over last 1 week, cr 3.4 and BUN 131. Blood pressure well controlled.Overall no significant change in clinical status. Did not have much PT/OT as pt was not in a mood to participate as per pts transitions rn care coordinator. Review of Systems A complete review of systems was performed. Pertinent positives are noted above. All other systems are negative. Vital Signs Last 8 Hrs Date Time Temp Pulse Resp B/P Pulse Ox O2 Delivery O2 Flow Rate FiO2 06/03/16 07:29 36.3 75 14 145/77 99 Room Air 06/03/16 00:10 Room Air I & O 24-Hour Column 06/03/16 07:59 Intake Total 2412 ml Output Total 1525 ml Balance 887 ml Last Recorded Weight Weight (Kilograms): 71.000 Physical Exam GENERAL: Middle aged male, AAA x 3, ill-appearing, not in any distress. NECK: Supple, no JVD. RESPIRATORY: Normal breathing efforts, no accessory muscle use, poor respiratory effort and overall decreased BS.. CARDIOVASCULAR: S1, S2 normal, rate rhythm regular. EXTREMITY: bilateral upper and lower extremity edema NEURO: moves extremities Family History Heart disease Brother is realty loan specialist Social History Smoking Status: Former smoker Drug Use: none Marital Status: single Housing Status: lives alone Occupation: retired Retired. Lives at home with two round the clock care givers. History of tobacco use. Laboratory Results Past 24 Hours 06/03/16 05:50 Test 06/02/16 09:10 06/02/16 10:00 06/02/16 10:25 06/03/16 05:50 Urine Random Creatinine 41.0 mg/dl Urine Random Total Protein 1138.2 mg/dl (0-11.9) Urine Protein/Creatinine Ratio 27.8 (0-0.2) Urine Color YELLOW Urine Appearance CLEAR (CLEAR) Urine pH 7.0 (4.5-7.5) Urine Specific [place] 1.018 (1.000-1.030) Urine Protein 4+ (NEG) Urine Glucose (UA) 1+ (NEG) Urine Ketones NEG (NEG) Urine Occult Blood 3+ (NEG) Urine Nitrite NEG (NEG) Urine Bilirubin NEG (NEG) Urine Urobilinogen NEG (NEG) Urine Leukocyte Esterase TRACE (NEG) Urine WBC (Auto) 10-30 /hpf (0-5) Urine RBC (Auto) >30 /hpf (0-4) Urine Hyaline Casts (Auto) 10-30 /lpf (0-5) Urine Epithelial Cells (Auto) >30 /lpf (0-5) Urine Bacteria (Auto) NEG (NEG) Urine Renal Epithelial Cells /lpf (0-5) Urine Yeast (Auto) (NONE PRSENT) Anion Gap 10.0 mmol/L (3-11) Est Creatinine Clear Calc Drug Dose 22.0 ml/min Estimated GFR () 20.9 Estimated GFR (Non- 18.0 BUN/Creatinine Ratio 39.4 (10-20) Calcium Level 7.4 mg/dl (8.5-10.1) Phosphorus Level 7.2 mg/dl (2.5-4.9) Albumin 1.0 gm/dl (3.4-5.0) Allergies Coded Allergies: Penicillins (Verified Allergy, Unknown, unknown, Per Erik Chang: pt rec'd ancef in OR w/o rxn, 01/12/16) pt/spouse Medications Current Inpatient Medications Medications (Trade) Dose Ordered Sig/Rachel Route Start Time Stop Time Status Last Admin Dose Admin Dorzolamide/ Timolol (Cosopt Op Soln) 1 drops BID OPL 05/22/16 08:00 06/21/16 08:59 06/02/16 20:07 1 DROPS Memantine (Namenda Tab) 10 mg BID PO 05/22/16 08:00 06/24/16 07:59 06/02/16 20:08 10 MG Miconazole Nitrate (Monistat-Derm Crm) 1 appln DAILY EXT 05/22/16 08:00 06/21/16 08:59 06/02/16 08:11 1 APPLN Travoprost (Travatan Z) 1 drops HS OPL 05/22/16 21:00 06/21/16 20:59 06/02/16 20:08 1 DROPS Acetaminophen (Tylenol Tab) 650 mg Q4H PRN PO 05/22/16 02:15 06/21/16 02:14 06/02/16 18:41 650 MG Al Hydrox/Mg Hydrox/Simethicone (Maalox Max Susp) 15 ml Q4H PRN PO 05/22/16 02:15 06/21/16 02:14 Polyethylene (Miralax Powder Packet) 17 gm DAILY PRN PO 05/22/16 02:15 06/21/16 02:14 Ondansetron HCl (Zofran Inj) 4 mg Q6H PRN IV 05/22/16 02:15 06/21/16 02:14 Morphine Sulfate (MoRPHine SULFATE INJ) 2 mg Q2H PRN IV 05/22/16 18:30 06/05/16 18:29 06/01/16 21:57 2 MG Heparin Sodium (Porcine) (Heparin Sq 5000 Unit/0.5ml) 5,000 unit Q12 SQ 05/23/16 21:00 06/22/16 20:59 05/30/16 20:02 5,000 UNIT Hydralazine HCl (HydrALAZINE INJ) 10 mg Q6 PRN IV. 05/24/16 11:45 06/23/16 11:44 05/30/16 00:03 10 MG Neomycin/ Polymyxin/ Bacitracin (Neosporin Oint) 1 appln BID EXT 05/25/16 20:00 06/24/16 19:59 06/02/16 20:07 1 APPLN Cholecalciferol (Vitamin D Tab) 1,000 inter.unit DAILY PEG 05/26/16 08:00 06/25/16 07:59 06/02/16 08:12 1,000 INTER.UNIT Donepezil HCl (Aricept Tab) 10 mg HS PEG 05/25/16 21:00 06/24/16 20:59 06/02/16 20:09 10 MG Aspirin (Aspirin Chew) 81 mg DAILY PEG 05/26/16 08:00 06/24/16 07:59 06/02/16 08:12 81 MG Hydralazine HCl (Apresoline Tab) 10 mg TID PEG 05/26/16 20:00 06/25/16 19:59 06/02/16 20:08 10 MG Enteral Nutritional Formula (Fibersource HN) 1,000 ml UD PEG 05/27/16 15:00 06/26/16 14:59 06/02/16 22:36 1,000 ML Sterile Water (Tube Feeding Water Flush) 250 ea Q6 PEG 05/27/16 18:00 06/26/16 17:59 06/03/16 05:26 250 EA Lansoprazole (Prevacid Solutab) 30 mg QAM PEG 05/31/16 11:00 06/30/16 10:59 06/02/16 08:12 30 MG Fexofenadine HCl (Scarlett Tab) 30 mg DAILY PO 06/02/16 08:00 07/02/16 07:59 06/02/16 08:13 30 MG Sodium Bicarbonate (Sodium Bicarbonate Tab) 650 mg BID PO 06/02/16 20:00 07/02/16 19:59 06/02/16 20:08 650 MG Furosemide (Lasix Tab) 80 mg BID17 PO 06/02/16 11:00 07/02/16 10:59 06/02/16 18:41 80 MG Impression (1) ARF (acute renal failure) (2) Metabolic acidosis (3) Dehydration (4) Hypoalbuminemia (5) Peripheral edema Chronically ill middle age male with [place]'s chorea, dementia and chronic aspiration. He was admitted for evaluation of dehydration, JAZMINE, metabolic acidosis and hypoalbuminemia. Baseline creatinine 0.7 04/16, Abdominal CT : No renal obstruction, Admission FeNa was < 0.5%, Urine sediment shows granular casts c/w ATN He has 3rd spacing of fluid into the dependent areas of his arms and legs. Patient had PEG placed 05/25/16. Abdominal CT was negative for obstruction. FeNa was < 0.5%. Urine sediment shows granular casts c/w ATN. Patient has high AG metabolic acidosis on the basis of JAZMINE. Recommendations ACUTE KIDNEY INJURY: -- renal function initially improved but since stable with cr around 3.4-3.5 for last more than a week without much change. --Continue Lasix to 80 milligram p.o. b.i.d -- continue to monitor for renal recovery. --as per discussion with pts POA will continue to monitor for renal recovery --will set up out pt Nephrology F/U on DC and lab weekly METABOLIC ACIDOSIS: -- continue on Na bicarb MALNUTRITION: -- continue on enteral feeding via PEG -- Patient is receiving free water via PEG (1 L / day)
[2016-06-03 11:30] VITALS: BP 132/82; PULSE 67; TEMP 36.5; O2SAT 98
[2016-06-03] MEDS ORDERED: ACETAMINOPHEN SOLN 650MG/20.3 ML UDC ONE (13:18)
[2016-06-03] MEDS ORDERED: NURSING DECISION MEDICATION ORDER SCH (13:30)
[2016-06-03 15:41] LABS: ALBUMIN 1.3 G/DL (3.8-4.8); GAMMA GLOBULIN 0.8 G/DL (0.8-1.7); TOTAL PROTEIN 3.9 G/DL (6.2-8.3)
[2016-06-03] MEDS ORDERED: NURSING VERBAL MED ORDER ONE (16:00)
[2016-06-03 16:11] VITALS: BP 127/78; PULSE 72; TEMP 36.3; O2SAT 98
[2016-06-03] MEDS: FIBERSOURCE HN 1000ML BAG PEG SCH ×2 (16:48)
[2016-06-03] MEDS: ACETAMINOPHEN SOLN 650MG/20.3 ML UDC PEG PRN (16:56)
--- NOTE | 2016-06-03 18:48 | Progress Note ---
Subjective Date of Service: Jun 03, 2016. Subjective Pt evaluation today including: physical exam, chart review, lab review, conversation w/ exchange underwriting consultant (social work, nephrology) Pain: none today PO Intake: npo, on PEG tube feedings; no intolerance; no residuals Voiding: jason catheter in place no events citrus fruit colorer at bedside states Dr. Garrett has been more sleepy today than usual but the patient has not offered complaints to staff or to his caregivers social work trying to set up medical equipment needed for the house Problem List Medical Problems: (1) Bilateral pneumonia Status: Acute (2) Bradycardia Status: Acute (3) Cerebral contusion Status: Acute Review of Systems cannot reliably obtain 2nd to significant aphasia Objective Vital Signs Date Time Temp Pulse Resp B/P Pulse Ox O2 Delivery O2 Flow Rate FiO2 06/03/16 16:11 36.3 72 18 127/78 98 Room Air 06/03/16 15:31 Room Air 06/03/16 11:30 36.5 67 12 132/82 98 Room Air 06/03/16 09:30 Room Air 06/03/16 07:29 36.3 75 14 145/77 99 Room Air 06/03/16 00:10 Room Air 06/02/16 23:11 36.3 71 18 142/82 94 Physical Exam General Appearance: no apparent distress, + cachetic, + pertinent finding ( looks tired, I cannot understand his speech) ENT: + pertinent finding (MM slightly pasty; dried mucous on palate; poor dentition) Neck: no JVD Respiratory/Chest: no respiratory distress, no accessory muscle use, + pertinent finding (course BS anterior right chest; CTA on left) Cardiovascular: regular rate, rhythm, no gallop, no murmur Abdomen: normal bowel sounds, soft, no organomegaly, + tenderness (slight, around PEG tube), + pertinent finding (PEG tube site clean, no erythema or drainage) Extremities: + swelling (x 4 extremities - no change) Neurologic/Psychiatric: alert Laboratory Results Last 24 Hours Test 06/03/16 05:50 Sodium Level 141 mmol/L Potassium Level 4.9 mmol/L Chloride Level 110 mmol/L Carbon Dioxide Level 21 mmol/L Anion Gap 10.0 mmol/L Blood Urea Nitrogen 134 mg/dl Creatinine 3.40 mg/dl Est Creatinine Clear Calc Drug Dose 22.0 ml/min Estimated GFR () 20.9 Estimated GFR (Non- 18.0 BUN/Creatinine Ratio 39.4 Random Glucose 144 mg/dl Calcium Level 7.4 mg/dl Phosphorus Level 7.2 mg/dl Albumin 1.0 gm/dl Assessment and Plan 66yo male with: 1. profound acute renal failure -- no change in BUN/Cr today. Was likely ATN. However, has had persistent severe proteinuria - 4+ - on last 4 u/a's. Nephrotic syndrome?? CT abd/pelvis w/o hydronephrosis or evidence of obstruction. Appreciate nephrology recommendations. BMP in am. no hemodialysis per his advanced directive as well as his POA (brother Pan) if renal function worsens. 2. recent SAH 2nd to trauma requiring hospital stay at [facility] [place] in 04/[place] - repeat head CT earlier this stay negative for blood. 3. severe dysphagia with known recurrent aspiration - s/p PEG tube placement this admission. Trying to secure suction machine for his home. 4. right-sided pneumonia, most likely aspiration - resolved, but likely still intermittently aspirating his own secretions. 5. Kameron's chorea with dementia - advanced, with aphasia. 6. elevated BP w/o dx of HTN - continue hydralazine. Controlled. 7. FEN - NPO; enteral feedings at goal. Will change continuous feedings to continuous over a 12-hour period. 8. DVT proph - heparin BID. But patient refusing such, and poor candidate for TEDS/SCDs due to copious edema. 9. glaucoma - continue outpatient drops. 10. severe protein calorie malnutrition - chronic, due to dementia, difficulty eating, ?nephrotic syndrome, etc. 11. anasarca - likely from hypoalbuminemia, bedbound status, etc. Dr. Pan Garrett - brother and POA - updated by phone on 06/01/16. [phone] caregiver updated again at bedside today hopefully home soon if all medical equipment can be secured for his house poor prognosis needs POLST form completed Continued [facility] stay due to: other (acute renal failure ) Discharge planning: home with home health
[2016-06-03] MEDS ORDERED: [UNRECOGNIZED DRUG - REMARK] SCH (20:00)
[2016-06-03 20:30] VITALS: BP 126/70; PULSE 80
[2016-06-03] MEDS: DONEPEZIL HCL 10 MG TAB PEG SCH (20:32)
[2016-06-03] MEDS: TRAVOPROST Z 0.004% OPH SOLN 2.5 ML BTL OPL SCH (20:34)
[2016-06-04] MEDS: TUBE FEEDING WATER FLUSH PEG SCH ×3 (00:18→12:00)
[2016-06-04 00:38] VITALS: BP 138/72; PULSE 73; TEMP 36.2; O2SAT 96
[2016-06-04 07:20] LABS: BUN/CREATININE RATIO 44.2 (10-20); CALCIUM 7.4 mg/dl (8.5-10.1); CREATININE 3.3 mg/dl (0.60-1.40); POTASSIUM 5.2 mmol/L (3.5-5.1)
[2016-06-04] MEDS ORDERED: FIBERSOURCE HN 1000ML BAG PEG SCH ×2 (08:00)
[2016-06-04 08:09] VITALS: BP 133/80; PULSE 72; TEMP 36.6; O2SAT 98
[2016-06-04] MEDS: SODIUM BICARBONATE 650 MG TAB PO SCH (08:40)
[2016-06-04] MEDS: HydrALAZINE 10 MG TAB PEG SCH ×2 (08:40→12:59)
[2016-06-04] MEDS: CHOLECALCIFEROL 1000 INTER.UNIT TAB PEG SCH (08:41)
[2016-06-04] MEDS: FUROSEMIDE 40 MG TAB PO SCH (08:41)
[2016-06-04] MEDS: DORZOLAMIDE/TIMOLOL 22.3/6.8MG/ML 10 ML BTL OPL SCH (08:41)
[2016-06-04] MEDS: FEXOFENADINE HCL 60 MG TAB PO SCH (08:41)
[2016-06-04] MEDS: NEOMYCIN/POLYMYX/BACITR OINT 15 GM TUBE EXT SCH (08:41)
[2016-06-04] MEDS: MEMANTINE 10 MG TAB PO SCH (08:41)
[2016-06-04] MEDS: LANSOPRAZOLE SOLUTAB 30 MG PEG SCH (08:41)
[2016-06-04] MEDS: MICONAZOLE NITRATE 2% CR 30 GM TUBE EXT SCH (08:42)
[2016-06-04] MEDS: HEPARIN SOD 5000 UNIT/0.5 ML CARP SQ SCH (08:46)
[2016-06-04] MEDS: ASPIRIN 81 MG CHEW PEG SCH (08:53)
[2016-06-04] MEDS: ACETAMINOPHEN SOLN 650MG/20.3 ML UDC PEG PRN ×2 (08:56→12:59)
[2016-06-04 10:00] VITALS: BP 133/80; PULSE 72; TEMP 36.6; O2SAT 98
--- NOTE | 2016-06-04 11:22 | Nephrology Progress Note ---
Nephrology Progress Note Date of Service Jun 04, 2016. Chief Complaint Follow-up for acute kidney injury Subjective Clark was seen and examined in his room this morning with his caregiver at bedside. He denies any specific symptoms. he has not been able to participate with physical therapy much. Has been on high dose of diuretics without significant improvement in extremity edema. No sign of significant improvement of renal function, potassium slightly elevated. Review of Systems A complete review of systems was performed. Pertinent positives are noted above. All other systems are negative. Vital Signs Last 8 Hrs Date Time Temp Pulse Resp B/P Pulse Ox O2 Delivery O2 Flow Rate FiO2 06/04/16 10:00 36.6 72 20 98 Room Air 06/04/16 08:09 36.6 72 20 133/80 98 Room Air 06/04/16 07:54 Room Air I & O 24-Hour Column 06/04/16 08:00 Intake Total 840 ml Output Total 1600 ml Balance -760 ml Last Recorded Weight Weight (Kilograms): 70.000 Physical Exam GENERAL: Middle aged male, AAA x 3, ill-appearing, not in any distress. NECK: Supple, no JVD. RESPIRATORY: Normal breathing efforts, no accessory muscle use, poor respiratory effort and overall decreased BS.. CARDIOVASCULAR: S1, S2 normal, rate rhythm regular. EXTREMITY: bilateral upper and lower extremity edema NEURO: moves extremities Family History Heart disease Brother is all terrain vehicle technician Social History Smoking Status: Former smoker Drug Use: none Marital Status: single Housing Status: lives alone Occupation: retired Retired. Lives at home with two round the clock care givers. History of tobacco use. Laboratory Results Past 24 Hours 06/04/16 06:04 Test 06/04/16 06:04 Anion Gap 12.0 mmol/L (3-11) Est Creatinine Clear Calc Drug Dose 22.4 ml/min Estimated GFR () 21.7 Estimated GFR (Non- 18.7 BUN/Creatinine Ratio 44.2 (10-20) Calcium Level 7.4 mg/dl (8.5-10.1) Allergies Coded Allergies: Penicillins (Verified Allergy, Unknown, unknown, Per Erik Chang: pt rec'd ancef in OR w/o rxn, 01/12/16) pt/spouse Medications Current Inpatient Medications Medications (Trade) Dose Ordered Sig/Rachel Route Start Time Stop Time Status Last Admin Dose Admin Dorzolamide/ Timolol (Cosopt Op Soln) 1 drops BID OPL 05/22/16 08:00 06/21/16 08:59 06/04/16 08:41 1 DROPS Memantine (Namenda Tab) 10 mg BID PO 05/22/16 08:00 06/24/16 07:59 06/04/16 08:41 10 MG Miconazole Nitrate (Monistat-Derm Crm) 1 appln DAILY EXT 05/22/16 08:00 06/21/16 08:59 06/04/16 08:42 1 APPLN Travoprost (Travatan Z) 1 drops HS OPL 05/22/16 21:00 06/21/16 20:59 06/03/16 20:34 1 DROPS Al Hydrox/Mg Hydrox/Simethicone (Maalox Max Susp) 15 ml Q4H PRN PO 05/22/16 02:15 06/21/16 02:14 Polyethylene (Miralax Powder Packet) 17 gm DAILY PRN PO 05/22/16 02:15 06/21/16 02:14 Ondansetron HCl (Zofran Inj) 4 mg Q6H PRN IV 05/22/16 02:15 06/21/16 02:14 Morphine Sulfate (MoRPHine SULFATE INJ) 2 mg Q2H PRN IV 05/22/16 18:30 06/05/16 18:29 06/01/16 21:57 2 MG Heparin Sodium (Porcine) (Heparin Sq 5000 Unit/0.5ml) 5,000 unit Q12 SQ 05/23/16 21:00 06/22/16 20:59 06/04/16 08:46 5,000 UNIT Hydralazine HCl (HydrALAZINE INJ) 10 mg Q6 PRN IV. 05/24/16 11:45 06/23/16 11:44 05/30/16 00:03 10 MG Neomycin/ Polymyxin/ Bacitracin (Neosporin Oint) 1 appln BID EXT 05/25/16 20:00 06/24/16 19:59 06/04/16 08:41 1 APPLN Cholecalciferol (Vitamin D Tab) 1,000 inter.unit DAILY PEG 05/26/16 08:00 06/25/16 07:59 06/04/16 08:41 1,000 INTER.UNIT Donepezil HCl (Aricept Tab) 10 mg HS PEG 05/25/16 21:00 06/24/16 20:59 06/03/16 20:32 10 MG Aspirin (Aspirin Chew) 81 mg DAILY PEG 05/26/16 08:00 06/24/16 07:59 06/04/16 08:53 81 MG Hydralazine HCl (Apresoline Tab) 10 mg TID PEG 05/26/16 20:00 06/25/16 19:59 06/04/16 08:40 10 MG Sterile Water (Tube Feeding Water Flush) 250 ea Q6 PEG 05/27/16 18:00 06/26/16 17:59 06/04/16 05:45 250 EA Lansoprazole (Prevacid Solutab) 30 mg QAM PEG 05/31/16 11:00 06/30/16 10:59 06/04/16 08:41 30 MG Fexofenadine HCl (Scarlett Tab) 30 mg DAILY PO 06/02/16 08:00 07/02/16 07:59 06/04/16 08:41 30 MG Sodium Bicarbonate (Sodium Bicarbonate Tab) 650 mg BID PO 06/02/16 20:00 07/02/16 19:59 06/04/16 08:40 650 MG Furosemide (Lasix Tab) 80 mg BID17 PO 06/02/16 11:00 07/02/16 10:59 06/04/16 08:41 80 MG Acetaminophen (Tylenol Soln) 650 mg Q4H PRN PEG 06/03/16 13:30 07/03/16 13:29 06/04/16 08:56 650 MG Enteral Nutritional Formula (Fibersource HN) 1,000 ml DAILY@0800 PEG 06/04/16 08:00 07/04/16 07:59 06/04/16 08:53 1,000 ML Miscellaneous (Stop Order) 1 ea DAILY@2000 N/A 06/03/16 20:00 07/03/16 19:59 06/03/16 20:27 1 EA Impression (1) ARF (acute renal failure) (2) Metabolic acidosis (3) Dehydration (4) Hypoalbuminemia (5) Peripheral edema Chronically ill middle age male with Kameron's chorea, dementia and chronic aspiration. He was admitted for evaluation of dehydration, JAZMINE, metabolic acidosis and hypoalbuminemia. Baseline creatinine 0.7 04/16, Abdominal CT : No renal obstruction, Admission FeNa was < 0.5%, Urine sediment shows granular casts c/w ATN He has 3rd spacing of fluid into the dependent areas of his arms and legs. Patient had PEG placed 05/25/16. Abdominal CT was negative for obstruction. FeNa was < 0.5%. Urine sediment shows granular casts c/w ATN. Patient has high AG metabolic acidosis on the basis of JAZMINE. Recommendations ACUTE KIDNEY INJURY: -- renal function initially improved but since stable with cr around 3.4-3.5 for last more than a week without much change. --would Continue Lasix to 80 milligram p.o. b.i.d on discharge but so far no significant improvement in extremity edema as albumin level continues to be very low at 1.3 -- continue to monitor for renal recovery but possibility for significant renal recovery seems to be slim --as per discussion with pts POA will continue to monitor for renal recovery --will set up out pt Nephrology F/U with Dr. Koch on DC and lab weekly --low potassium diet Hyperkalemia: With AK I --Please change PEG feeding to Nepro as post has high potassium content METABOLIC ACIDOSIS: -- increase Na bicarb to 650 milligram 2 tab twice a day MALNUTRITION: -- on PEG feeding -- Patient is receiving free water via PEG (1 L / day)
[2016-06-04 14:33] LABS: ALBUMIN % 48.34 %; ALPHA-2-GLOBULIN % 9.45 %; BETA GLOBULIN % 11.45 %; CREATININE UR 58 MG/DL (20-370); GAMMA GLOBULIN % 18.12 %
[2016-06-04 15:34] VITALS: BP 137/74; PULSE 80; TEMP 36.3; O2SAT 98
[2016-06-04] MEDS ORDERED: ONDA8TAB6 PEG (15:39)
[2016-06-04] MEDS ORDERED: APR10 PEG (15:39)
[2016-06-04] MEDS ORDERED: MORP15TA PEG (15:39)
[2016-06-04] MEDS ORDERED: LANS30TA3 PEG (15:39)
[2016-06-04] MEDS ORDERED: SODI650T9 PEG (15:39)
[2016-06-04] MEDS ORDERED: LORA-741 PEG (15:39)
[2016-06-04] MEDS ORDERED: FRS/80 PEG (15:39)
[2016-06-04] MEDS ORDERED: NMN10 PEG (15:39)
[2016-06-04] MEDS ORDERED: SERT-234 PEG (15:39)
[2016-06-04] MEDS ORDERED: NUTR-773 PEG (15:43)
--- NOTE | 2016-06-04 16:02 | Discharge Instructions ---
Discharge Instructions Admission Reason for Admission: acute renal failure and aspiration pneumonia Discharge Discharge Diagnosis / Problem: 1. acute renal failure 2. severe dysphagia due to dementia 3.pneumonia Discharge Goals Goal(s): Decrease discomfort, Learn about illness, Diagnostic testing, Therapeutic intervention Activity Recommendations Activity Limitations: resume your previous activity none - rest and comfort . Instructions / Follow-Up Instructions / Follow-Up From Dr. Rodas - 1. Tube feeding regimen - * tube feedings run from 0800 to 1999 each day; start on 06/05/16 * tube formula is Nepro with Carb Steady * rate is 75cc per hour continuously during the hours noted above * free water flushes of 300cc every 6 hours is recommended in addition to the Nepro feedings 2. Pain control - * morphine tablet via PEG, 15mg every 3 hours as needed for pain 3. Anxiety/agitation/sleep - * ativan 0.5mg via PEG every 6 hours as needed 4. Nausea/vomiting - * zofran 8mg tablet via PEG every 6 hours as needed 5. Continue jason catheter. This should be exchanged on June 26, 2016, and every 28 days thereafter. 6. Kidney failure - * take lasix 80mg via PEG twice a day * take sodium bicarbonate tablets 2 tabs via the PEG twice a day 7. If possible keep Clark's head of the bed past 30 degrees at all times to prevent aspiration. Although a formal POLST form has not been completed, Clark has verbally expressed that if was to get sick in the future he would prefer to remain at home and be treated at his house if possible. Please contact Dr. Justice Neil' office for any medications, questions, etc. Please contact the [facility] for any change in health status, help with medical equipment, jason care, etc. Current Hospital Diet Patient's current hospital diet: tube feedings via PEG tube. Discharge Diet Recommended Diet: N/A (PEG tube feedings - start Nepro with Carb Steady at 75cc /hr on 06/05/16. Run from 0800 to 1999 daily. Free water flushes of 300cc every 6 hours. ) Procedures Procedures Performed: 1. CAT scan of abdomen and pelvis 2. CAT scan of head 3. doppler ultrasound of each leg and arm Pending Studies Studies pending at discharge: no Medical Emergencies . Who to Call and When: Medical Emergencies: If at any time you feel your situation is an emergency, please call 911 immediately. . Non-Emergent Contact Non-Emergency issues call your: Primary Care Provider Call Non-Emergent contact if: temperature is above 100.5, your pain is not controlled, your pain is worsening, your pain is concerning you, you have any medication questions . . "Provider Documentation" section prepared by Justice Rodas. VTE Core Measure Inpt VTE Proph given/why not?: Unfractionated heparin SQ
--- NOTE | 2016-06-04 23:15 | Discharge Summary ---
Discharge Summary Admission Date: May 22, 2016 at 02:21 Discharge Date: Jun 04, 2016 Discharge Disposition: Home with services Principal Diagnosis: acute renal failure, likely 2nd to ATN Problems/Secondary Diagnoses: 1. aspiration pneumonia 2. metabolic encephalopathy 3. dementia 4. severe dysphagia s/p PEG tube placement 5. severe deconditioning 6. anasarca 2nd to acute renal failure 7. xochitl's chorea 8. recent SDH - resolved 9. question of nephrotic syndrome 10. left distal leg ulcer 11. glaucoma 12. aphasia 2nd to #7 13. depression/anxiety 14. severe protein calorie malnutrition Immunizations: Have You Had Influenza Vaccine: Yes Influenza Vaccine Date: Feb 01, 2012 History of Tetanus Vaccine?: Yes Tetanus Immunization Date: Mar 03, 2012 History of Pneumococcal: Yes Pneumococcal Date: Mar 03, 2012 History of Hepatitis B Vaccine: No Procedures: 1. venous doppler studies of legs - negative for DVT 2. venous doppler studies of arms - negative for DVT 3. CT abd/pelvis - no evidence of hydronephrosis/obstruction 4. CT head - negative for ICH 5. PEG tube placement - Christiano Wills, DO Consultations: 1. gastroenterology - Christiano Wills, DO 2. nephrology - Catracho Koch MD 3. PT, OT 4. 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 Lorazepam (Ativan) 0.5 Mg Tab 0.5 MG PEG Q6H PRN for anxiety/agitation, #30 TAB 0 Refills Morphine Sulfate Ir (Morphine Sulfate Ir) 15 Mg Tab 15 MG PEG Q3H PRN for Pain, #30 TAB 0 Refills Ondansetron Hcl (Zofran) 8 Mg Tab 8 MG PEG Q6H PRN for Nausea, #20 TAB 0 Refills Furosemide (Lasix) 80 Mg Tab 80 MG PEG BID, #60 TAB 0 Refills Hydralazine HCl (Hydralazine HCl) 10 Mg Tab 10 MG PEG TID, #90 TAB 0 Refills Lansoprazole (Prevacid Solutab) 30 Mg Tab 30 MG PEG QAM, #30 TAB 1 Refill Sodium Bicarbonate (Sodium Bicarbonate) 650 Mg Tab 2 TAB PEG BID, #120 TAB 0 Refills Changed Medications: Memantine (Namenda) 10 Mg Tab 10 MG PEG BID, #60 TAB 0 Refills (Changed from: PO; Refills: ) Sertraline (Zoloft) 100 Mg Tab 50 MG PEG HS, #30 TAB 1 Refill (Changed from: 300 MG; PO; Refills: ) Continued Medications: Dorzolamide Hcl-Timolol Maleat (Cosopt Oph) 1 Addie Addie 1 DROPS OPL BID Miconazole Nitrate (Miconazole Nitrate) 90 Appln/30 Gm Cr 1 APPLN EXT DAILY for 30 Days, #1 TUBE 1 Refill Travoprost (Travatan Z) 0.004 % Chris 1 DROPS OPL HS, #2.5 ML Discontinued Medications: Aripiprazole (Abilify) 10 Mg Tab 2.5 TAB PO DAILY Aspirin (Aspirin Ec) 81 Mg Tab 81 MG PO DAILY Baclofen (Lioresal) 10 Mg Tab 10 MG PO HS, TAB Buspirone Hcl (Buspirone Hcl) 10 Mg Tab 15 MG PO TID, TAB Cholecalciferol (Vitamin D3) 1,000 Unit Tab 1000 UNITS PO DAILY Diphenoxylate/Atropine (Lomotil) Tab 1 TAB PO QID, TAB Donepezil Hydrochloride (Aricept) 10 Mg Tab 10 MG PO HS, TAB Fexofenadine Hcl (Scarlett) 60 Mg Tab 180 MG PO DAILY, TAB Ibuprofen Tab (Motrin) 400 Mg Tab 600 MG PO QID PRN for Pain, TAB Loperamide Hcl (Imodium) 2 Mg Cap 2 MG PO QID, CAP Magnesium Oxide (Mg Supplement (Magnesium Oxide) 400 Mg Tab 400 MG PO DAILY Melatonin (Kp Melatonin) 3 Mg Tab 2 TAB PO HS Multivitamin (Multivitamin) Tab 1 TAB PO QAM, TAB Quetiapine Fumarate (Seroquel) 25 Mg Tab 25 MG PO HS, TAB Discharge Exam Physical Exam: General Appearance: no apparent distress, + cachetic, + thin, + pertinent finding (sleepy) ENT: + pertinent finding (poor dentition, MM dry, mucous layering on palate) Neck: no JVD Respiratory/Chest: no respiratory distress, no accessory muscle use, + pertinent finding (course BS on right) Cardiovascular: regular rate, rhythm, no gallop, no murmur, normal peripheral pulses Abdomen / GI: normal bowel sounds, non tender, soft, no organomegaly, + pertinent finding (PEG tube insertion site clean, no erythema, no drainage) Extremities: + swelling (all 4 extremities, 2+ ) Neurologic/Psychiatric: + aphasia, + pertinent finding (sleepy, unable to assess orientation due to aphasia) Skin: + pertinent finding (ulcer, distal left medial leg - healing, no erythema or signs of infection ) Hospital Course HISTORY OF PRESENT ILLNESS: 66yo male with history of advanced Sunbright's disease, dementia, and chronic aspiration who presented from home due to progressive lethargy, inability to take in sufficient liquids for several weeks, worsening swallowing/dysphagia, and cough productive of large amounts of sputum. He had had multiple falls over the last few weeks, one of which resulted in a SDH. This necessitated transfer to [facility] in April but no intervention was needed on the SDH. The patient's caregivers report he has severe aphasia at baseline but it had been worse in the days leading up to admission. At time of ER presentation his BUN >200 and Cr >6. Chest x-ray was concerning for RLL pneumonia. HOSPITAL COURSE: Dr. Garrett had a protracted hospitalization due to his profound acute renal failure (ARF). His ARF was felt to be due to ATN in the setting of multiple weeks of poor oral intake. He did not have any evidence of obstruction on imaging. Serial u/a's showed 4+ protein with severe hypoalbuminemia and thus nephrotic syndrome could not be ruled out. Early in his hospitalization he received IV fluids and supportive care. After numerous days his BUN and Creatinine plateaued at ~150 and 3.5, respectively, without further improvement. In the midst of his recovery he developed severe anasarca and thus IV fluids were discontinued. He was seen in consult by nephrology who instituted diuretic therapy and sodium bicarbonate therapy. Despite these measures he did not show any significant improvement either. Multiple discussions were held with Dr. Garrett's brother, Pan, who also serves as his power of senior attorney. Hemodialysis was NOT pursued as the patient's advance directives stated he would NOT want dialysis. Dr. Garrett's brother confirmed these were in fact his brother's wishes. Other issues addressed while here - 1. aspiration pneumonia - completed 10 days of IV antibiotic therapy. 2. severe dysphagia - was seen in consult by speech therapy who recommended PEG tube placement. A discussion was held with the patient early on in his hospital stay regarding artificial nutrition and he opted to pursue PEG placement. PEG was ultimately implanted by Dr. Christiano Wills. Following placement he was started on PEG tube feedings and advanced to goal. He will continue on PEG tube feedings consisting of Nepro at 75cc/hr continuously from 0800 to 2000 every day. 3. code status / end of life wishes - the patient's advance directive calls for chest compressions and cardioversion but no intubation/mechanical ventilation. His current code status was discussed with his brother, Pan (power of senior attorney) , but as of discharge will remain a partial code. The patient's brother was also counseled regarding his brother's very poor prognosis in light of his severe acute renal failure, ongoing uremia, severe protein calorie malnutrition, etc. Prior to discharge palliative care measures/hospice were strongly recommended in light of his declining status. A formal POLST form was not completed, but Dr. Garrett did voice several times he simply wanted to return home and not pursue a repeat hospitalization if he were to become ill again. The patient was set up for home health services at discharge, and likely will need a palliative care bridge very soon. Code status can be revisited again at that time. The patient has multiple private duty caregivers at his home and they, too, were counseled regarding his poor prognosis. At discharge the patient will be given prescriptions for morphine, ativan, zofran, and other medications for comfort. He will continue with jason catheter as well. Social work has arranged for various medical equipment needs including an electric byron lift. Total Time Spent: Greater than 30 minutes This includes examination of the patient, discharge planning, medication reconciliation, and communication with other providers. Discharge Instructions Please refer to the electronic Patient Visit Report (Discharge Instructions) for additional information. Follow-Up Dr. Justice Neil, PCP, within 1-2 weeks if desired by family Additional Copies To Justice Neil M.D.; Jessica Mancia MD
== END 2016-06-04 16:58 | disposition home health service (06) | DRG 177 ==
LOC: ENRESERVDT → ENRESERVTM → EDBD 21:32 → C.EDC 21:34 → C.4E 05-22 02:21
PROVIDERS: ADMIT Internal Medicine; ATTEND Internal Medicine
PROC: 0DH63UZ Insertion of Feeding Device into Stomach, Percutaneous Approach (ICD-10-PCS; principal; 2016-05-25 12:46)
DX: J69.0 Pneumonitis due to inhalation of food and vomit (principal); N17.0 Acute kidney failure with tubular necrosis; E87.2 Acidosis; G93.41 Metabolic encephalopathy; G10 Huntington's disease; E43 Unspecified severe protein-calorie malnutrition; F41.9 Anxiety disorder, unspecified; H40.9 Unspecified glaucoma; Z87.891 Personal history of nicotine dependence; Z88.0 Allergy status to penicillin; E86.0 Dehydration; M19.90 Unspecified osteoarthritis, unspecified site; Z66 Do not resuscitate; R13.10 Dysphagia, unspecified; E88.09 Other disorders of plasma-protein metabolism, not elsewhere classified; F03.90 Unspecified dementia, unspecified severity, without behavioral disturbance, psychotic disturbance, mood disturbance, and anxiety; K29.70 Gastritis, unspecified, without bleeding

== ENCOUNTER → 2016-06-10 | Outpatient (CLI) | payer OTHER, BC ==
[~2016-06-10] MED LIST changes: -ABL10 PO; +APR10 PEG; -ARC10 PO; -ASPI81TA28 PO; -BACL10TA PO; -BUSP-8 PO; -CHOL100010 PO; -DIPH-416 PO; -FEXO1TAB45 PO; +FRS/80 PEG; -IBUP-1449 PO; -IMD/2 PO; +LANS30TA3 PEG; +LORA-741 PEG; -MAGN1TAB19 PO; -MELA1TAB5 PO; +MORP15TA PEG; -MULT-506 PO; +NMN10 PEG; -NMN10 PO; +NUTR-773 PEG; +ONDA8TAB6 PEG; -QUET1TAB30 PO; +SERT-234 PEG; -SERT-234 PO; +SODI650T9 PEG
[2016-06-10 14:54] LABS: HEMATOCRIT 24.4 % (42-52); MEAN CELL VOLUME 81.6 fL (80-100); MEAN CORPUSCULAR HEMOGLOBIN 28.8 pg (25-34); MEAN CORPUSCULAR HGB CONC 35.2 g/dl (32-36); MEAN PLATELET VOLUME 10.8 fL (7.4-10.4); PLATELET COUNT 200 K/uL (130-400); RED BLOOD COUNT 2.99 M/uL (4.7-6.1)
[2016-06-10 15:05] LABS: ALT/SGPT 26 U/L (12-78); CALCIUM 7.5 mg/dl (8.5-10.1); CARBON DIOXIDE 22 mmol/L (21-32); CHLORIDE 108 mmol/L (98-107); GLUCOSE 159 mg/dl (70-99); POTASSIUM 3.1 mmol/L (3.5-5.1); SODIUM 146 mmol/L (136-145)
[2016-06-10 15:08] LABS: ALB/GLOB RATIO 0.2 (0.9-2); ALKALINE PHOSPHATASE 108 U/L (45-117); AST/SGOT 28 U/L (15-37); PHOSPHORUS 6.6 mg/dl (2.5-4.9)
[2016-06-10 15:23] LABS: BASO % 0.1 %; BASO ABS # 0.01 K/uL (0-0.2); COMPLETE YES; EOS % 0.1 %; IG% 0.3 %; LYMPH % 5.3 %; LYMPH ABS # 0.47 K/uL (1.2-3.4); MONO % 10.5 %; NEUT % 83.7 %
[2016-06-10 15:26] LABS: BLOOD UREA NITROGEN 190 mg/dl (7-18); BUN/CREATININE RATIO 61.3 (10-20)
--- NOTE | 2016-06-13 06:46 | CODING QUERY NO DIAGNOSIS ---
TREATMENT RENDERED WITHOUT A DIAGNOSIS 52 To promote full compliance with coding requirements relating to patient care, physician participation is requested in all cases of cutter banana room uncertainty. Please assist us with providing a diagnosis/symptom for the test(s) below: A diagnosis/symptom was not documented on your Order. A valid diagnosis/symptom is required to bill all insurances. Please remember that we are unable to code a diagnosis of rule out, probable, possible, questionable, or suspected. DOS 06/10/16 Tests that require a diagnosis: * CBC w/DIFF DIAGNOSIS: * PHOSPHORUS DIAGNOSIS: * COMPLETE METABOLIC DIAGNOSIS: Provider Signature: Date: Thank you Leslee [facility] Information Management Once completed, please kindly fax back to [phone] For questions please call [phone]
== END | disposition home or self-care (01) ==
LOC: C.LABSPEC 14:31
PROVIDERS: ATTEND Family Medicine
DX: N17.9 Acute kidney failure, unspecified (principal); E88.09 Other disorders of plasma-protein metabolism, not elsewhere classified; D64.9 Anemia, unspecified

== ENCOUNTER → 2016-06-18 | Outpatient (CLI) | payer OTHER, BC ==
[2016-06-18 16:00] LABS: URINE APPEARANCE CLOUDY (CLEAR); URINE BILIRUBIN NEG (NEG); URINE COLOR YELLOW; URINE EPITHELIAL CELL AUTO >30 /lpf (0-5); URINE NITRITE NEG (NEG); UROBILINOGEN NEG (NEG)
[2016-06-18 16:02] LABS: MANUAL MICROSCOPIC REQUIRED? NO; REVIEW REQ? NO
[2016-06-18 16:03] LABS: MEAN CELL VOLUME 81.9 fL (80-100); MEAN CORPUSCULAR HEMOGLOBIN 28.8 pg (25-34); MEAN CORPUSCULAR HGB CONC 35.2 g/dl (32-36); MEAN PLATELET VOLUME 10.6 fL (7.4-10.4); PLATELET COUNT 296 K/uL (130-400); RED BLOOD COUNT 2.81 M/uL (4.7-6.1); WHITE BLOOD COUNT 12.62 K/uL (4.8-10.8)
[2016-06-18 16:11] LABS: ALT/SGPT 53 U/L (12-78); AST/SGOT 49 U/L (15-37); CALCIUM 7.6 mg/dl (8.5-10.1); CARBON DIOXIDE 24 mmol/L (21-32); CHLORIDE 103 mmol/L (98-107); GLUCOSE 120 mg/dl (70-99); POTASSIUM 4.4 mmol/L (3.5-5.1); SODIUM 141 mmol/L (136-145)
[2016-06-18 16:14] LABS: ALB/GLOB RATIO 0.3 (0.9-2); ALKALINE PHOSPHATASE 137 U/L (45-117)
[2016-06-18 16:30] LABS: BASO % 0.3 %; BASO ABS # 0.04 K/uL (0-0.2); COMPLETE YES; EOS % 4.4 %; IG% 1.1 %; LYMPH % 5.6 %; LYMPH ABS # 0.71 K/uL (1.2-3.4); MONO % 7.4 %; NEUT % 81.2 %
[2016-06-18 19:12] LABS: BLOOD UREA NITROGEN 209 mg/dl (7-18); BUN/CREATININE RATIO 77.3 (10-20)
--- NOTE | 2016-08-03 07:05 | CODING QUERY NO DIAGNOSIS ---
: 1950 Valid Physician Order Needed A valid physician order must be submitted in order to properly bill for the service(s) provided, including date of service(s), valid diagnosis, and physician signature. If these tests are done on a recurring basis the original physican order must be submitted in order to code and bill for the service(s) provided. Please fax us the original, signed physician order so that we may expedite billing to [phone] DOS 06/18/2016 UA CATH COMPREHENSIVE METABOLIC PHOPHORUS CBC WITH AUTO DIFF URINE CULTURE CATH Thank you Daria Malik, [facility] Health Information Management
== END | disposition home or self-care (01) ==
LOC: C.LABSPEC 09:56
PROVIDERS: ATTEND Family Medicine
DX: E46 Unspecified protein-calorie malnutrition (principal); Z93.1 Gastrostomy status; N17.9 Acute kidney failure, unspecified

== ENCOUNTER → 2016-06-23 | Outpatient (CLI) | payer OTHER, BC ==
[2016-06-23 16:30] LABS: HEMATOCRIT 24.5 % (42-52); MEAN CORPUSCULAR HEMOGLOBIN 29.1 pg (25-34); MEAN CORPUSCULAR HGB CONC 33.9 g/dl (32-36); PLATELET COUNT 257 K/uL (130-400); RED BLOOD COUNT 2.85 M/uL (4.7-6.1)
[2016-06-23 16:59] LABS: URINE APPEARANCE CLEAR (CLEAR); URINE BILIRUBIN NEG (NEG); URINE COLOR YELLOW; URINE EPITHELIAL CELL AUTO >30 /lpf (0-5); URINE NITRITE NEG (NEG); URINE PH 7.5 (4.5-7.5); URINE SPECIFIC GRAVITY 1.021 (1.000-1.030); UROBILINOGEN NEG (NEG)
[2016-06-23 17:17] LABS: BASO % 0.5 %; BASO ABS # 0.07 K/uL (0-0.2); COMPLETE YES; EOS % 4.5 %; IG% 0.3 %; LYMPH % 9.1 %; LYMPH ABS # 1.24 K/uL (1.2-3.4); MONO % 1.2 %; NEUT % 84.4 %
[2016-06-23 17:18] LABS: MANUAL MICROSCOPIC REQUIRED? NO; REVIEW REQ? YES; SULFASALICYLIC ACID POS (NEG)
[2016-06-23 17:21] LABS: URINE PATH CASTS 0-3 GRANULAR CASTS /lpf (0)
[2016-06-23 17:28] LABS: ALT/SGPT 57 U/L (12-78); CARBON DIOXIDE 27 mmol/L (21-32); CHLORIDE 108 mmol/L (98-107); GLUCOSE 103 mg/dl (70-99); SODIUM 145 mmol/L (136-145)
[2016-06-23 17:45] LABS: ALB/GLOB RATIO 0.3 (0.9-2); ALKALINE PHOSPHATASE 127 U/L (45-117); AST/SGOT 40 U/L (15-37)
[2016-06-23 20:53] LABS: BLOOD UREA NITROGEN 229 mg/dl (7-18); BUN/CREATININE RATIO 84.9 (10-20)
== END | disposition home or self-care (01) ==
LOC: C.LABSPEC 16:08
PROVIDERS: ATTEND Family Medicine
DX: G10 Huntington's disease (principal)

== ENCOUNTER → 2016-06-30 | Outpatient (CLI) | payer OTHER, BC ==
[2016-06-30 14:46] LABS: HEMATOCRIT 21.5 % (42-52); MEAN CELL VOLUME 86.3 fL (80-100); MEAN CORPUSCULAR HEMOGLOBIN 29.7 pg (25-34); MEAN CORPUSCULAR HGB CONC 34.4 g/dl (32-36); MEAN PLATELET VOLUME 10.5 fL (7.4-10.4); PLATELET COUNT 176 K/uL (130-400); RED BLOOD COUNT 2.49 M/uL (4.7-6.1); WHITE BLOOD COUNT 7.78 K/uL (4.8-10.8)
[2016-06-30 14:54] LABS: URINE APPEARANCE CLOUDY (CLEAR); URINE BILIRUBIN NEG (NEG); URINE COLOR YELLOW; URINE EPITHELIAL CELL AUTO 20-30 /lpf (0-5); URINE NITRITE NEG (NEG); URINE PH 7.5 (4.5-7.5); URINE SPECIFIC GRAVITY 1.021 (1.000-1.030); UROBILINOGEN NEG (NEG)
[2016-06-30 15:03] LABS: ALT/SGPT 28 U/L (12-78); CALCIUM 8.1 mg/dl (8.5-10.1); CARBON DIOXIDE 25 mmol/L (21-32); CHLORIDE 113 mmol/L (98-107); GLUCOSE 114 mg/dl (70-99); POTASSIUM 4.2 mmol/L (3.5-5.1); SODIUM 149 mmol/L (136-145)
[2016-06-30 15:06] LABS: ALB/GLOB RATIO 0.3 (0.9-2); ALKALINE PHOSPHATASE 134 U/L (45-117); AST/SGOT 26 U/L (15-37); PHOSPHORUS 6.5 mg/dl (2.5-4.9)
[2016-06-30 15:07] LABS: MANUAL MICROSCOPIC REQUIRED? NO; REVIEW REQ? YES; SULFASALICYLIC ACID POS (NEG)
[2016-06-30 15:09] LABS: URINE PATH CASTS 1-5 GRANULAR CASTS /lpf (0)
[2016-06-30 15:53] LABS: ANISOCYTOSIS PRESENT; BASO % 0.4 %; BASO ABS # 0.03 K/uL (0-0.2); COMPLETE YES; EOS % 8.7 %; IG% 0.3 %; LYMPH % 10.5 %; LYMPH ABS # 0.82 K/uL (1.2-3.4); MONO % 2.8 %; NEUT % 77.3 %
[2016-06-30 16:04] LABS: BLOOD UREA NITROGEN 182 mg/dl (7-18); BUN/CREATININE RATIO 67.3 (10-20)
--- NOTE | 2016-07-02 15:12 | CODING QUERY NO DIAGNOSIS ---
Valid Physician Order Needed A valid physician order must be submitted in order to properly bill for the service(s) provided, including date of service(s), valid diagnosis, and physician signature. If these tests are done on a recurring basis the original physican order must be submitted in order to code and bill for the service(s) provided. Please fax us the original, signed physician order so that we may expedite billing to [phone] DOS 06/30/16 * CBC, U/A, CMP, PHOSPHORUS ORDERED BY DR. CERDA Thank you Rubi [facility] Information Management
== END | disposition home or self-care (01) ==
LOC: C.LABSPEC 14:36
PROVIDERS: ATTEND Family Medicine
DX: E46 Unspecified protein-calorie malnutrition (principal); N17.9 Acute kidney failure, unspecified; Z93.1 Gastrostomy status

== ENCOUNTER → 2016-07-07 | Outpatient (CLI) | payer OTHER, BC ==
[2016-07-07 15:45] LABS: HEMATOCRIT 25.1 % (42-52); MEAN CORPUSCULAR HEMOGLOBIN 30.7 pg (25-34); MEAN CORPUSCULAR HGB CONC 32.7 g/dl (32-36); MEAN PLATELET VOLUME 10.9 fL (7.4-10.4); PLATELET COUNT 196 K/uL (130-400); RED BLOOD COUNT 2.67 M/uL (4.7-6.1); WHITE BLOOD COUNT 10.07 K/uL (4.8-10.8)
[2016-07-07 15:55] LABS: ALT/SGPT 30 U/L (12-78); CALCIUM 7.8 mg/dl (8.5-10.1); CARBON DIOXIDE 28 mmol/L (21-32); CHLORIDE 117 mmol/L (98-107); GLUCOSE 159 mg/dl (70-99); POTASSIUM 4.7 mmol/L (3.5-5.1); SODIUM 153 mmol/L (136-145)
[2016-07-07 15:58] LABS: ALB/GLOB RATIO 0.2 (0.9-2); ALKALINE PHOSPHATASE 180 U/L (45-117); AST/SGOT 28 U/L (15-37); PHOSPHORUS 5.2 mg/dl (2.5-4.9)
[2016-07-07 16:36] LABS: URINE APPEARANCE CLEAR (CLEAR); URINE BILIRUBIN NEG (NEG); URINE COLOR YELLOW; URINE NITRITE NEG (NEG); URINE SPECIFIC GRAVITY 1.021 (1.000-1.030); UROBILINOGEN NEG (NEG)
[2016-07-07 16:45] LABS: BASO % 0.6 %; BASO ABS # 0.06 K/uL (0-0.2); COMPLETE YES; EOS % 15.3 %; IG% 0.4 %; LYMPH % 11.1 %; LYMPH ABS # 1.12 K/uL (1.2-3.4); MONO % 4.4 %; NEUT % 68.2 %; POLYCHROMASIA 1+
[2016-07-07 16:47] LABS: MANUAL MICROSCOPIC REQUIRED? NO; REVIEW REQ? YES
[2016-07-07 18:39] LABS: BLOOD UREA NITROGEN 165 mg/dl (7-18); BUN/CREATININE RATIO 58.8 (10-20)
== END | disposition home or self-care (01) ==
LOC: C.LABSPEC 15:07
PROVIDERS: ATTEND Family Medicine
DX: G10 Huntington's disease (principal)

== ENCOUNTER → 2016-07-11 | Outpatient (CLI) | payer OTHER, BC ==
--- NOTE | 2016-09-01 09:12 | EDITING REQUIRED CODING QUERY ---
Valid Physician Order Needed A valid physician order must be submitted in order to properly bill for the service(s) provided, including date of service(s), valid diagnosis, and physician signature. If these tests are done on a recurring basis the original physican order must be submitted in order to code and bill for the service(s) provided. Please fax us the original, signed physician order so that we may expedite billing to [phone] DOS 07/11/16 * URINE CULTURE CLEAN CATCH Thank you Leslie [facility] Information Management
--- NOTE | 2016-09-17 06:55 | CODING QUERY NO DIAGNOSIS ---
TREATMENT RENDERED WITHOUT A DIAGNOSIS To promote full compliance with coding requirements relating to patient care, physician participation is requested in all cases of block cutter uncertainty. Please assist us with providing a diagnosis/symptom for the test(s) below: A diagnosis/symptom was not documented on your Order. A valid diagnosis/symptom is required to bill all insurances. Please remember that we are unable to code a diagnosis of rule out, probable, possible, questionable, or suspected. Tests that require a diagnosis: * URINE CULTURE CLEAN CATCH DIAGNOSIS: Provider Signature: Date: Thank you Leslie [place] [employer] Information Management Once completed, please kindly fax back to [phone] For questions please call [phone]
== END | disposition home or self-care (01) ==
LOC: C.LAB 14:45
PROVIDERS: ATTEND Family Medicine
DX: G10 Huntington's disease (principal); N19 Unspecified kidney failure